=== PATIENT | female | born 1950 | race Caucasian/White ===

== ENCOUNTER 2020-11-29 12:08 | Inpatient (IN) ==
--- NOTE | 2020-11-29 13:40 | RAD ---
HISTORYCOVID INFUSIONSTUDLUIS ENRIQUE DAMON/LAT [id number]/04/2021.TECHNIQUE2 views of the chestFINDINGSCardiac and mediastinal contours are within normal limits. Moderate atherosclerosis at the aortic knob. Moderate bilateral airspace and interstitial opacities with a peripheral distribution in the mid to lower lungs. No discernible pleural effusion or pneumothorax.IMPRESSIONModerate bilateral pulmonary opacities consistent with COVID 19.Electronically signed by: Orlando Ivy (Nov 29, 2020 13:38:13)
[2020-11-29 13:42] VITALS: BMI 34.0
[2020-11-29 13:52] LABS: ABG ALLEN TEST POS; ABG BASE EXCESS -5.1 mmol/L (-2.0-2.0); ABG HCO3 18.6 mmol/L (22-26)
[2020-11-29 13:59] LABS: BASOPHILS # (AUTO) 0.1 X10^3/uL (0.0-0.1); BASOPHILS % (AUTO) 0.5 % (0.2-1.0); EOSINOPHILS # (AUTO) 0.1 x10^3/uL (0.0-0.2); EOSINOPHILS % (AUTO) 0.3 % (0.9-2.9); HEMATOCRIT 34.1 % (36.0-47.0); HEMOGLOBIN 11.2 g/dL (12.0-16.0); LYMPHOCYTES # (AUTO) 1.1 X10^3/uL (1.3-2.9); LYMPHOCYTES % (AUTO) 5.5 % (21.0-51.0); MEAN CORPUSCULAR HEMOGLOBIN 27.6 pg (27.0-34.0); MEAN CORPUSCULAR HGB CONC 32.9 g/dL (33.0-35.0); MEAN CORPUSCULAR VOLUME 83.9 fL (80.0-100.0); MEAN PLATELET VOLUME 7.4 fL (7.4-11.0); MONOCYTES # (AUTO) 1.7 x10^3/uL (0.3-0.8); MONOCYTES % (AUTO) 8.4 % (0.0-13.0); NEUTROPHILS # (AUTO) 17.6 x10^3/uL (2.2-4.8); NEUTROPHILS % (AUTO) 85.3 % (42.0-75.0); PLATELET COUNT 503 X10^3/uL (150.0-450.0); RED BLOOD COUNT 4.07 X10^6/uL (3.5-5.4); RED CELL DISTRIBUTION WIDTH 20.9 % (11.6-16.5); WHITE BLOOD COUNT 20.7 X10^3/uL (3.6-10.0)
[2020-11-29 14:10] LABS: ALBUMIN 2.8 g/dL (3.4-5.0); CALCIUM 8.9 mg/dL (8.5-10.1); CARBON DIOXIDE 22.1 mmol/L (21-32); COR CA(FOR HYPOALB) 9.9 mg/dL (8.5-10.1); CREATININE 1.5 mg/dL (0.55-1.02); TOTAL PROTEIN 8.3 g/dL (6.4-8.2)
[2020-11-29] MEDS ORDERED: NS 250 ML IV 250 ML IV ONE (14:23)
[2020-11-29] MEDS ORDERED: REMDESIVIR IV ONE (14:23)
[2020-11-29] MEDS ORDERED: TYLENOL 325 MG TAB PO ONE (14:49)
[2020-11-29] MEDS ORDERED: REMDESIVIR 200 MG in NS 250 ML IV 250 ML IV ONE (14:49)
[2020-11-29] MEDS ORDERED: SOLU-Medrol 125 MG VIAL IVP ONE (14:49)
[2020-11-29 15:08] LABS: ANISOCYTOSIS 1+; PLATELET MORPHOLOGY COMMENT NORMAL (NORMAL)
[2020-11-29] MEDS ORDERED: ROBITUSSIN DM PO PRN (16:56)
[2020-11-29] MEDS ORDERED: TUSSIONEX PENNKINETIC SUSP PO PRN (16:56)
[2020-11-29] MEDS ORDERED: ACCUNEB 1.25 MG NEBULE NEB SCH (17:00)
[2020-11-29] MEDS ORDERED: PHARMACY CONSULT - IVERMECTIN XX SCH (17:00)
[2020-11-29] MEDS ORDERED: LEVAQUIN PREMIX IV 500 MG 500 MG/100 ML BAG IV SCH (17:00)
[2020-11-29] MEDS: PULMICORT NEB TX 0.5 MG NEB SCH ×2 (17:43→21:00)
[2020-11-29] MEDS ORDERED: NS 1/2 1000 ML IV 1,000 ML IV ONE (18:15)
[2020-11-29] MEDS ORDERED: LEVAQUIN PREMIX IV 750 MG 750 MG/150 ML BAG IV ONE (18:16)
[2020-11-29 18:19] LABS: CKMB % 3.9 % (<4); CREATINE KINASE 26 Units/L (26-192); CREATINE KINASE MB < 1.0 ng/mL (0-4.0); TROPONIN I < 0.02 ng/mL (0-1.5)
[2020-11-29] MEDS: NS 1/2 1000 ML IV 1,000 ML IV SCH ×2 (18:21→18:42)
[2020-11-29] MEDS: LEVAQUIN PREMIX IV 750 MG 750 MG/150 ML BAG IV SCH (18:22)
[2020-11-29] MEDS: VITAMIN D3 125 mcg (5,000 UNITS) PO SCH (18:34)
[2020-11-29] MEDS: DIFLUCAN PO SCH (18:34)
[2020-11-29] MEDS: ZINC SULFATE PO SCH (18:34)
[2020-11-29] MEDS ORDERED: BROVANA ONE (19:37)
[2020-11-29] MEDS ORDERED: AMBIEN PO PRN (20:30)
[2020-11-29] MEDS: FLUVOXAMINE MALEATE PO SCH (20:33)
[2020-11-29] MEDS: SNACK - Diabetic Appropriate PO SCH (20:33)
[2020-11-29] MEDS: MELATONIN PO SCH (20:34)
[2020-11-29] MEDS: ACCUNEB 1.25 MG NEBULE NEB PRN (21:00)
[2020-11-29] MEDS: BROVANA IN SCH (21:00)
[2020-11-29] MEDS: PERIACTIN TAB 4 MG PO SCH (21:35)
[2020-11-29] MEDS: IVERMECTIN PO SCH (21:35)
[2020-11-29] MEDS: SINGULAIR TAB 10 MG PO SCH (21:35)
[2020-11-29] MEDS: PEPCID TAB 40 MG PO SCH (21:35)
[2020-11-29] MEDS: PROTONIX TAB 40 MG PO SCH (21:35)
[2020-11-29] MEDS: LIPITOR TAB 80 MG PO SCH (21:35)
[2020-11-29] MEDS: SOLU-Medrol 40 MG VIAL IVP SCH (21:40)
[2020-11-29] MEDS: LOVENOX INJ 80 MG SYR SC SCH (21:40)
[2020-11-29] MEDS: THIAMINE HCL INJ IVP SCH (21:40)
[2020-11-29] MEDS: TESSALON PERLES PO SCH (21:45)
[2020-11-29] MEDS: FORTAZ or TAZICEF VIAL INJ IV SCH (21:45)
[2020-11-29] MEDS: HumuLIN R SUBCUT PRN (21:56)
[2020-11-29] MEDS: ASCORBIC ACID INJ MULTI-DOSE VIAL 1,500 MG in NS 50 ML IV 50 ML IV SCH (22:35)
[2020-11-30] MEDS: ASCORBIC ACID INJ MULTI-DOSE VIAL 1,500 MG in NS 50 ML IV 50 ML IV SCH ×4 (02:45→20:17)
[2020-11-30 05:00] LABS: ABG ALLEN TEST POS; ABG BASE EXCESS -4.1 mmol/L (-2.0-2.0); ABG HCO3 19.8 mmol/L (22-26)
[2020-11-30] MEDS: PERIACTIN TAB 4 MG PO SCH ×3 (05:34→20:17)
[2020-11-30] MEDS: TESSALON PERLES PO SCH ×3 (05:34→20:17)
[2020-11-30] MEDS: SOLU-Medrol 40 MG VIAL IVP SCH ×3 (05:34→20:23)
[2020-11-30] MEDS: NS 1/2 1000 ML IV 1,000 ML IV SCH ×3 (05:44→19:14)
[2020-11-30 06:24] LABS: BASOPHILS # (AUTO) 0.1 X10^3/uL (0.0-0.1); HEMATOCRIT 29.9 % (36.0-47.0); LYMPHOCYTES # (AUTO) 0.9 X10^3/uL (1.3-2.9); LYMPHOCYTES % (AUTO) 7.5 % (21.0-51.0); MEAN CORPUSCULAR HEMOGLOBIN 29.6 pg (27.0-34.0); MEAN CORPUSCULAR HGB CONC 33.6 g/dL (33.0-35.0); MEAN CORPUSCULAR VOLUME 88.3 fL (80.0-100.0); MEAN PLATELET VOLUME 7.8 fL (7.4-11.0); MONOCYTES # (AUTO) 0.3 x10^3/uL (0.3-0.8); MONOCYTES % (AUTO) 2.5 % (0.0-13.0); NEUTROPHILS # (AUTO) 10.1 x10^3/uL (2.2-4.8); PLATELET COUNT 411 X10^3/uL (150.0-450.0); RED BLOOD COUNT 3.39 X10^6/uL (3.5-5.4); RED CELL DISTRIBUTION WIDTH 20.5 % (11.6-16.5); WHITE BLOOD COUNT 11.4 X10^3/uL (3.6-10.0)
[2020-11-30 06:34] LABS: ALBUMIN 2.4 g/dL (3.4-5.0); CALCIUM 8.6 mg/dL (8.5-10.1); CARBON DIOXIDE 24.4 mmol/L (21-32); COR CA(FOR HYPOALB) 9.9 mg/dL (8.5-10.1); CREATININE 1.35 mg/dL (0.55-1.02); TOTAL PROTEIN 7.3 g/dL (6.4-8.2)
[2020-11-30 07:11] LABS: ANISOCYTOSIS 1+; PLATELET MORPHOLOGY COMMENT NORMAL (NORMAL)
--- NOTE | 2020-11-30 07:25 | RAD ---
HISTORYSOB HX: HTN, DM SX: GBgdSTUDYCHEST, 1 [id number]/06/2021FINDINGSCardiac silhouette is stable in size. Bilateral patchy opacities within the mid and lower peripheral lungs persist and appear essentially unchanged since prior. No significant pleural effusion is identified. No pneumothorax.IMPRESSIONStable bilateral airspace disease, compatible with multifocal pneumonia.Electronically signed by: ERIC FERNANDES (Nov 30, 2020 07:23:56)
[2020-11-30] MEDS: FORTAZ or TAZICEF VIAL INJ IV SCH ×2 (08:45→20:17)
[2020-11-30] MEDS: REMDESIVIR 100 MG in NS 250 ML IV 250 ML IV SCH (08:55)
[2020-11-30] MEDS: LOVENOX INJ 80 MG SYR SC SCH ×2 (08:55→20:17)
[2020-11-30] MEDS: ACCUNEB 1.25 MG NEBULE NEB PRN (09:40)
[2020-11-30] MEDS: PULMICORT NEB TX 0.5 MG NEB SCH (09:40)
[2020-11-30] MEDS: BROVANA IN SCH (09:40)
[2020-11-30] MEDS: VITAMIN D3 125 mcg (5,000 UNITS) PO SCH (10:28)
[2020-11-30] MEDS: FLUVOXAMINE MALEATE PO SCH (10:29)
[2020-11-30] MEDS: DIFLUCAN PO SCH (10:29)
[2020-11-30] MEDS: PROTONIX TAB 40 MG PO SCH ×2 (10:29→20:17)
[2020-11-30] MEDS: ZINC SULFATE PO SCH (10:31)
[2020-11-30] MEDS: PEPCID TAB 40 MG PO SCH (11:28)
[2020-11-30] MEDS: THIAMINE HCL INJ IVP SCH ×2 (11:28→20:20)
--- NOTE | 2020-11-30 12:17 | PCM.PROG ---
Progress Note Progress Note for Day of Date of Exam: 11/30/20 Subjective Subjective: Patient seen at bedside, no events overnight. She states she feels better. She is not on oxygen. She reports mild cough with clear sputum. Denies N/V/D or abdominal pain. She was admitted yesterday for covid infection. Labs: WBC 11.4 Hgb 10 BUN/Cr: 27/1.35 Trop (-) CRp 62 D-dimer 3.45 ABG 7.42/32/72/19 sats 94% on Room air CXR: stable bilateral opacities consistent with multifocal pneumonia. Plan: CTA pending, continue IV hydration with 1/2 NS. Continue Remdesivir, solumedrol, Fortaz, Levaquin and Diflucan. Continue nebs, pulmicort and IS. Monitor resp status. Continue vitamin support and home medications. Monitor AM labs and imaging. Past Medical Family Social History Past Med/Fam/Surg Hx: No changes since H&P Allergies: Allergies No Known Drug Allergies Allergy (Verified 04/29/20 20:19) Review of Systems ROS: No change since H&P Vital Signs and I&O's Vital Signs: Temperature 98.8 F Pulse Rate [Left Radial] 108 Pulse Rate 101 Respiratory Rate 20 Blood Pressure [Right Arm] 140/67 O2 Sat by Pulse Oximetry 96 Intake and Output: Intake & Output 11/27/20 11/28/20 11/29/20 11/30/20 23:59 23:59 23:59 23:59 Intake Total 2280 / 2280 2214 / 2214 Balance 2280 / 2280 2214 / 2214 Physical Exam Oriented: Normal Eyes: Normal Ear: Normal Nose: Normal Throat: Normal Respiratory: Generalized and Diminished Cardiovascular: Normal and Edema Auscultation: Bowel Sounds: Normal Palpation: Normal Tenderness: Normal Skin: Normal Musculoskeletal: Normal Psychiatric: Normal Mood Description: Calm Affect: Normal Speech Pattern: Clear and Appropriate Laboratory and Diagnostics Result Diagrams: 11/30/20 05:40 11/30/20 05:40 Labs: Laboratory WBC 11.4 X10^3/uL (3.6-10.0) H D 11/30/20 05:40 RBC 3.39 X10^6/uL (3.5-5.4) L 11/30/20 05:40 Hgb 10.0 g/dL (12.0-16.0) L 11/30/20 05:40 Hct 29.9 % (36.0-47.0) L 11/30/20 05:40 MCV 88.3 fL (80.0-100.0) 11/30/20 05:40 MCH 29.6 pg (27.0-34.0) 11/30/20 05:40 MCHC 33.6 g/dL (33.0-35.0) 11/30/20 05:40 RDW 20.5 % (11.6-16.5) H 11/30/20 05:40 Plt Count 411 X10^3/uL (150.0-450.0) 11/30/20 05:40 Plt Count Comment Adequate (ADEQUATE) 11/30/20 05:40 MPV 7.8 fL (7.4-11.0) 11/30/20 05:40 Neut % (Auto) 89.0 % (42.0-75.0) H 11/30/20 05:40 Lymph % (Auto) 7.5 % (21.0-51.0) L 11/30/20 05:40 [place] % (Auto) 2.5 % (0.0-13.0) 11/30/20 05:40 Eos % (Auto) 0.0 % (0.9-2.9) L 11/30/20 05:40 Baso % (Auto) 1.0 % (0.2-1.0) 11/30/20 05:40 Neut # (Auto) 10.1 x10^3/uL (2.2-4.8) H 11/30/20 05:40 Lymph # (Auto) 0.9 X10^3/uL (1.3-2.9) L 11/30/20 05:40 [place] # (Auto) 0.3 x10^3/uL (0.3-0.8) 11/30/20 05:40 Eos # (Auto) 0.0 x10^3/uL (0.0-0.2) 11/30/20 05:40 Baso # (Auto) 0.1 X10^3/uL (0.0-0.1) 11/30/20 05:40 Absolute Nucleated RBC 0.0 /100WBC 11/30/20 05:40 Plt Morphology Comment Normal (NORMAL) 11/30/20 05:40 RBC Morphology Abnormal (NORMAL) A 11/30/20 05:40 Anisocytosis 1+ A 11/30/20 05:40 D-Dimer 3.45 ug/ml (0.0-0.57) H* 11/30/20 05:40 Sample Site Lr 11/30/20 04:55 ABG pH 7.400 (7.35-7.45) 11/30/20 04:55 ABG pCO2 32.0 mmHg (35.0-45.0) L 11/30/20 04:55 ABG pO2 72.0 mmHg (80.0-100.0) L 11/30/20 04:55 ABG HCO3 19.8 mmol/L (22-26) L 11/30/20 04:55 ABG O2 Saturation 94.0 % (90-100) 11/30/20 04:55 ABG Base Excess -4.1 mmol/L (-2.0-2.0) L 11/30/20 04:55 Reji Test Pos 11/30/20 04:55 A-a Gradient 38.0 mmHg 11/30/20 04:55 FiO2 21.0 11/30/20 04:55 Blood Gas Comments Dinesh well ae 11/30/20 04:55 Sodium 136 mmol/L (136-145) 11/30/20 05:40 Corrected Sodium 137 mmol/L (136-145) 11/30/20 05:40 Potassium 4.1 mmol/L (3.5-5.1) 11/30/20 05:40 Chloride 102 mmol/L (98-107) 11/30/20 05:40 Carbon Dioxide 24.4 mmol/L (21-32) 11/30/20 05:40 BUN 27 mg/dL (7-18) H 11/30/20 05:40 Creatinine 1.35 mg/dL (0.55-1.02) H 11/30/20 05:40 Est GFR (MDRD) Af Amer 50 (>60) L 11/30/20 05:40 Est GFR (MDRD) Non-Af 41 (>60) L 11/30/20 05:40 Glucose 134 mg/dL (65-99) H 11/30/20 05:40 POC Glucose (mg/dL) 289 mg/dL (65-99) H 11/29/20 21:17 Calcium 8.6 mg/dL (8.5-10.1) 11/30/20 05:40 Corrected Calcium 9.9 mg/dL (8.5-10.1) 11/30/20 05:40 Ferritin 946 ng/mL (8-252) H 11/30/20 05:40 Total Bilirubin 0.40 mg/dL (0.2-1.0) 11/30/20 05:40 AST 16 Units/L (15-37) 11/30/20 05:40 ALT 14 Units/L (12-78) 11/30/20 05:40 Alkaline Phosphatase 124 Units/L (46-116) H 11/30/20 05:40 Creatine Kinase 26 Units/L (26-192) 11/29/20 17:29 CK-MB (CK-2) < 1.0 ng/mL (0-4.0) 11/29/20 17:29 CK/CKMB % Calc 3.9 % (<4) 11/29/20 17:29 Troponin I < 0.02 ng/mL (0-1.5) 11/29/20 17:29 C-Reactive Protein 62.20 mg/L (0-3.0) H 11/30/20 05:40 B-Natriuretic Peptide 45.4 pg/mL (0-79) 11/30/20 05:40 Total Protein 7.3 g/dL (6.4-8.2) 11/30/20 05:40 Albumin 2.4 g/dL (3.4-5.0) L 11/30/20 05:40 Globulin 4.9 g/dL (2.5-4.5) H 11/30/20 05:40 Albumin/Globulin Ratio 0.5 Ratio (1.1-2.1) L 11/30/20 05:40 SARS CoV-2 RNA Rapid LUCA Positive (NEGATIVE) A 11/29/20 12:46 Plan (1) Pneumonia due to COVID-19 virus: Status: Acute (2) Elevated d-dimer: Status: Acute (3) Hypoxia: Status: Acute (4) JANIE (acute kidney injury): Status: Acute (5) HTN (hypertension): Status: Acute Qualifiers: Hypertension type: primary hypertension Qualified Code(s): I10 - Essential (primary) hypertension
[2020-11-30] MEDS: NORCO 7.5/325 MG TAB PO SCH ×2 (13:05→20:17)
[2020-11-30] MEDS ORDERED: NS 100 ML IV 100 ML ONE (13:36)
[2020-11-30] MEDS ORDERED: NS 1/2 1000 ML IV 1,000 ML IV ONE (15:24)
--- NOTE | 2020-11-30 15:27 | CT ---
HISTORYCOVID PNEUMONIA; SOBSTUDYCTA CHESTCOMPARISONChest radiograph 11/30/2020TECHNIQUEMultiple axial images of the chest were obtained from the thoracic inlet to the upper abdomen after the administration of IV contrast. 3D reconstructions utilizing axial MIPS imaging was performed and reviewed. Dose reduction techniques including Automated Exposure Control (AEC) and adjustment of mA and kV were utilized.FINDINGSThe mediastinum does not demonstrate significant pathological lymphadenopathy. There is no paracardial effusion observed. The thoracic aorta is normal in its contour without evidence for aneurysmal dilatation. The central pulmonary arterial system does not demonstrate central filling defects to suggest pulmonary emboli.Evaluation of the lung parenchyma demonstrates multifocal bilateral parenchymal opacities primarily peripheral in distribution. No pleural effusion or pneumothorax. Is. No pulmonary nodule or mass can be identified. The bony thorax is unremarkable in its appearance . The visualized portions of the upper abdomen are grossly unremarkable .IMPRESSIONUnremarkable CTA of the thoracic aorta and pulmonary arteries. IsMultifocal bilateral parenchymal opacities primarily peripheral in distribution. Findings consistent with multifocal pneumonia.The above findings demonstrate COMMON CT imaging features of COVID-19 pneumonia. However, differential diagnosis should include, but is not limited to, influenza pneumonia, organizing pneumonia, or possible drug toxicity. Clinical correlation with laboratory viral testing may be obtained as clinically indicated. Reference: Hakeem et al. Radiology. 2020Electronically signed by: Keith Pillai (Nov 30, 2020 15:25:26)
[2020-11-30] MEDS: BENTYL CAP 10 MG PO SCH ×2 (17:03→20:17)
[2020-11-30] MEDS: AMBIEN PO PRN (20:17)
[2020-11-30] MEDS: SINGULAIR TAB 10 MG PO SCH (20:17)
[2020-11-30] MEDS: OLMESARTAN 5 MG PO SCH (20:17)
[2020-11-30] MEDS: LIPITOR TAB 80 MG PO SCH (20:17)
[2020-11-30] MEDS: SNACK - Diabetic Appropriate PO SCH (22:57)
[2020-11-30] MEDS: MELATONIN PO SCH (22:59)
[2020-12-01] MEDS: BROVANA IN SCH ×3 (00:38→22:55)
[2020-12-01] MEDS: PULMICORT NEB TX 0.5 MG NEB SCH ×3 (00:38→22:53)
[2020-12-01] MEDS: ASCORBIC ACID INJ MULTI-DOSE VIAL 1,500 MG in NS 50 ML IV 50 ML IV SCH ×3 (02:24→14:20)
[2020-12-01 05:26] LABS: BASOPHILS # (AUTO) 0.3 X10^3/uL (0.0-0.1); BASOPHILS % (AUTO) 1.4 % (0.2-1.0); HEMATOCRIT 27.7 % (36.0-47.0); HEMOGLOBIN 9.3 g/dL (12.0-16.0); LYMPHOCYTES # (AUTO) 0.7 X10^3/uL (1.3-2.9); LYMPHOCYTES % (AUTO) 3.1 % (21.0-51.0); MEAN CORPUSCULAR HEMOGLOBIN 28.7 pg (27.0-34.0); MEAN CORPUSCULAR HGB CONC 33.5 g/dL (33.0-35.0); MEAN CORPUSCULAR VOLUME 85.6 fL (80.0-100.0); MEAN PLATELET VOLUME 7.2 fL (7.4-11.0); MONOCYTES # (AUTO) 1.1 x10^3/uL (0.3-0.8); MONOCYTES % (AUTO) 4.4 % (0.0-13.0); NEUTROPHILS # (AUTO) 22.2 x10^3/uL (2.2-4.8); NEUTROPHILS % (AUTO) 91.1 % (42.0-75.0); PLATELET COUNT 397 X10^3/uL (150.0-450.0); RED BLOOD COUNT 3.23 X10^6/uL (3.5-5.4); RED CELL DISTRIBUTION WIDTH 21.4 % (11.6-16.5); WHITE BLOOD COUNT 24.3 X10^3/uL (3.6-10.0)
[2020-12-01] MEDS: PERIACTIN TAB 4 MG PO SCH ×3 (05:40→22:54)
[2020-12-01] MEDS: SOLU-Medrol 40 MG VIAL IVP SCH ×2 (05:40→14:13)
[2020-12-01 05:43] LABS: ALBUMIN 2.4 g/dL (3.4-5.0); CALCIUM 8.3 mg/dL (8.5-10.1); CARBON DIOXIDE 23.1 mmol/L (21-32); COR CA(FOR HYPOALB) 9.6 mg/dL (8.5-10.1); CREATININE 1.51 mg/dL (0.55-1.02); TOTAL PROTEIN 6.8 g/dL (6.4-8.2)
[2020-12-01] MEDS: BENTYL CAP 10 MG PO SCH ×4 (05:50→22:53)
[2020-12-01] MEDS: TESSALON PERLES PO SCH ×3 (05:50→22:53)
[2020-12-01 05:52] LABS: ABG ALLEN TEST POS; ABG BASE EXCESS -5.2 mmol/L (-2.0-2.0); ABG HCO3 18.8 mmol/L (22-26)
--- NOTE | 2020-12-01 05:55 | RAD ---
HISTORYCOVID PNEUMONIA HX: HTN SX: GBSTUDYCHEST, 1 [id number]/07/2021FINDINGSCardiac silhouette is stable in size. Previously seen bilateral airspace disease appears essentially unchanged since prior. There is no significant pleural effusion or pneumothorax.IMPRESSIONStable bilateral airspace disease.Electronically signed by: ERIC FERNANDES (Dec 01, 2020 05:53:31)
[2020-12-01 06:31] LABS: ANISOCYTOSIS 1+; PLATELET MORPHOLOGY COMMENT NORMAL (NORMAL)
[2020-12-01] MEDS: LOVENOX INJ 80 MG SYR SC SCH (09:01)
[2020-12-01] MEDS: GLUCOTROL XL 24-HR PO SCH (09:02)
[2020-12-01] MEDS: PROTONIX TAB 40 MG PO SCH ×2 (09:03→22:00)
[2020-12-01] MEDS: VITAMIN D3 125 mcg (5,000 UNITS) PO SCH (09:04)
[2020-12-01] MEDS: NORCO 7.5/325 MG TAB PO SCH ×2 (09:04→22:00)
[2020-12-01] MEDS: PEPCID TAB 40 MG PO SCH (09:05)
[2020-12-01] MEDS: FORTAZ or TAZICEF VIAL INJ IV SCH (09:06)
[2020-12-01] MEDS: ZINC SULFATE PO SCH (09:06)
[2020-12-01] MEDS: ZYLOPRIM PO SCH (09:06)
[2020-12-01] MEDS: DIFLUCAN PO SCH (09:11)
[2020-12-01] MEDS: THIAMINE HCL INJ IVP SCH (09:11)
[2020-12-01] MEDS: NS 1/2 1000 ML IV 1,000 ML IV SCH (09:12)
[2020-12-01] MEDS: ACCUNEB 1.25 MG NEBULE NEB PRN (09:40)
[2020-12-01] MEDS: REMDESIVIR 100 MG in NS 250 ML IV 250 ML IV SCH (10:00)
[2020-12-01] MEDS ORDERED: NS 1/2 1000 ML IV 1,000 ML IV ONE ×2 (10:40→11:11)
[2020-12-01] MEDS: HumuLIN R SUBCUT PRN ×2 (12:02→16:57)
--- NOTE | 2020-12-01 12:21 | PCM.PROG ---
Progress Note Progress Note for Day of Date of Exam: 12/01/20 Subjective Subjective: Patient seen at bedside, no events overnight. She states she feels better. She is not on oxygen. She reports mild cough. Denies N/V/D or abdominal pain. She has been eating well. Labs: WBC 24.3 Hgb 9.3 BUN/Cr: 30/1.51 Trop (-) CRP 36 D-dimer 4.05 ABG 7.42/32/72/19 sats 94% on Room air - CTA: no PE, bilateral multifocal pneumonia CXR: stable bilateral opacities consistent with multifocal pneumonia. Plan:Continue IV hydration with 1/2 NS. Continue Remdesivir, solumedrol, Fortaz, Levaquin and Diflucan. Continue nebs, pulmicort and IS. Monitor resp status. Continue vitamin support and home medications. Echo pending for tomorrow. Will decrease lovenox dose to prophylaxis, 30 mg BID. Monitor AM labs and imaging. Past Medical Family Social History Past Med/Fam/Surg Hx: No changes since H&P Allergies: Allergies No Known Drug Allergies Allergy (Verified 04/29/20 20:19) Review of Systems ROS: No change since H&P Vital Signs and I&O's Vital Signs: Temperature 98.2 F Pulse Rate [Left Radial] 92 Pulse Rate 108 Respiratory Rate 20 Blood Pressure [Right Arm] 142/74 O2 Sat by Pulse Oximetry 95 Intake and Output: Intake & Output 11/28/20 11/29/20 11/30/20 12/01/20 23:59 23:59 23:59 23:59 Intake Total 2280 / 2280 6009 / 6009 380 / 380 Balance 2280 / 2280 6009 / 6009 380 / 380 Physical Exam Oriented: Normal Eyes: Normal Ear: Normal Nose: Normal Throat: Normal Respiratory: Generalized and Diminished Cardiovascular: Normal and Edema Auscultation: Bowel Sounds: Normal Tenderness: Normal Skin: Normal Musculoskeletal: Normal Psychiatric: Normal Mood Description: Calm Affect: Normal Speech Pattern: Clear Laboratory and Diagnostics Result Diagrams: 12/01/20 05:05 12/01/20 05:05 Labs: 11/29/20 17:34 Blood Blood Culture - Preliminary 11/29/20 17:29 Blood Blood Culture - Preliminary Laboratory WBC 24.3 X10^3/uL (3.6-10.0) H D 12/01/20 05:05 RBC 3.23 X10^6/uL (3.5-5.4) L 12/01/20 05:05 Hgb 9.3 g/dL (12.0-16.0) L 12/01/20 05:05 Hct 27.7 % (36.0-47.0) L 12/01/20 05:05 MCV 85.6 fL (80.0-100.0) 12/01/20 05:05 MCH 28.7 pg (27.0-34.0) 12/01/20 05:05 MCHC 33.5 g/dL (33.0-35.0) 12/01/20 05:05 RDW 21.4 % (11.6-16.5) H 12/01/20 05:05 Plt Count 397 X10^3/uL (150.0-450.0) 12/01/20 05:05 Plt Count Comment Adequate (ADEQUATE) 12/01/20 05:05 MPV 7.2 fL (7.4-11.0) L 12/01/20 05:05 Neut % (Auto) 91.1 % (42.0-75.0) H 12/01/20 05:05 Lymph % (Auto) 3.1 % (21.0-51.0) L 12/01/20 05:05 [place] % (Auto) 4.4 % (0.0-13.0) 12/01/20 05:05 Eos % (Auto) 0.0 % (0.9-2.9) L 12/01/20 05:05 Baso % (Auto) 1.4 % (0.2-1.0) H 12/01/20 05:05 Neut # (Auto) 22.2 x10^3/uL (2.2-4.8) H 12/01/20 05:05 Lymph # (Auto) 0.7 X10^3/uL (1.3-2.9) L 12/01/20 05:05 [place] # (Auto) 1.1 x10^3/uL (0.3-0.8) H 12/01/20 05:05 Eos # (Auto) 0.0 x10^3/uL (0.0-0.2) 12/01/20 05:05 Baso # (Auto) 0.3 X10^3/uL (0.0-0.1) H 12/01/20 05:05 Absolute Nucleated RBC 0.1 /100WBC 12/01/20 05:05 Total Counted 100 12/01/20 05:05 Neutrophils % (Manual) 97 % (39-76) H 12/01/20 05:05 Lymphocytes % (Manual) 2 % (13-43) L 12/01/20 05:05 Monocytes % (Manual) 1 % (4-9) L 12/01/20 05:05 Plt Morphology Comment Normal (NORMAL) 12/01/20 05:05 RBC Morphology Abnormal (NORMAL) A 12/01/20 05:05 Anisocytosis 1+ A 12/01/20 05:05 D-Dimer 4.05 ug/ml (0.0-0.57) H* 12/01/20 05:05 Sample Site Lr 12/01/20 05:00 ABG pH 7.390 (7.35-7.45) 12/01/20 05:00 ABG pCO2 31.0 mmHg (35.0-45.0) L 12/01/20 05:00 ABG pO2 70.0 mmHg (80.0-100.0) L 12/01/20 05:00 ABG HCO3 18.8 mmol/L (22-26) L 12/01/20 05:00 ABG O2 Saturation 94.0 % (90-100) 12/01/20 05:00 ABG Base Excess -5.2 mmol/L (-2.0-2.0) L 12/01/20 05:00 Reji Test Pos 12/01/20 05:00 A-a Gradient 41.0 mmHg 12/01/20 05:00 FiO2 21.0 12/01/20 05:00 Blood Gas Comments Dinesh well sw 12/01/20 05:00 Sodium 142 mmol/L (136-145) 12/01/20 05:05 Corrected Sodium 143 mmol/L (136-145) 12/01/20 05:05 Potassium 3.6 mmol/L (3.5-5.1) 12/01/20 05:05 Chloride 107 mmol/L (98-107) 12/01/20 05:05 Carbon Dioxide 23.1 mmol/L (21-32) 12/01/20 05:05 BUN 30 mg/dL (7-18) H 12/01/20 05:05 Creatinine 1.51 mg/dL (0.55-1.02) H 12/01/20 05:05 Est GFR (MDRD) Af Amer 44 (>60) L 12/01/20 05:05 Est GFR (MDRD) Non-Af 36 (>60) L 12/01/20 05:05 Glucose 158 mg/dL (65-99) H 12/01/20 05:05 POC Glucose (mg/dL) 196 mg/dL (65-99) H 12/01/20 11:48 Calcium 8.3 mg/dL (8.5-10.1) L 12/01/20 05:05 Corrected Calcium 9.6 mg/dL (8.5-10.1) 12/01/20 05:05 Ferritin 1254 ng/mL (8-252) H 12/01/20 05:05 Total Bilirubin 0.20 mg/dL (0.2-1.0) 12/01/20 05:05 AST 17 Units/L (15-37) 12/01/20 05:05 ALT 14 Units/L (12-78) 12/01/20 05:05 Alkaline Phosphatase 103 Units/L (46-116) 12/01/20 05:05 Creatine Kinase 26 Units/L (26-192) 11/29/20 17:29 CK-MB (CK-2) < 1.0 ng/mL (0-4.0) 11/29/20 17:29 CK/CKMB % Calc 3.9 % (<4) 11/29/20 17:29 Troponin I < 0.02 ng/mL (0-1.5) 11/29/20 17:29 C-Reactive Protein 36.40 mg/L (0-3.0) H 12/01/20 05:05 B-Natriuretic Peptide 40.7 pg/mL (0-79) 12/01/20 05:05 Total Protein 6.8 g/dL (6.4-8.2) 12/01/20 05:05 Albumin 2.4 g/dL (3.4-5.0) L 12/01/20 05:05 Globulin 4.4 g/dL (2.5-4.5) 12/01/20 05:05 Albumin/Globulin Ratio 0.5 Ratio (1.1-2.1) L 12/01/20 05:05 SARS CoV-2 RNA Rapid LUCA Positive (NEGATIVE) A 11/29/20 12:46 Plan (1) Pneumonia due to COVID-19 virus: Status: Acute (2) Elevated d-dimer: Status: Acute (3) Hypoxia: Status: Acute (4) JANIE (acute kidney injury): Status: Acute (5) HTN (hypertension): Status: Acute Qualifiers: Hypertension type: primary hypertension Qualified Code(s): I10 - Essential (primary) hypertension
[2020-12-01] MEDS: LEVAQUIN PREMIX IV 750 MG 750 MG/150 ML BAG IV SCH (17:45)
[2020-12-01] MEDS: SNACK - Diabetic Appropriate PO SCH (20:30)
[2020-12-01] MEDS: SINGULAIR TAB 10 MG PO SCH (21:00)
[2020-12-01] MEDS ORDERED: NS 50 ML IV + SPIKE MINIBAG* 50 ML IV ONE (21:15)
[2020-12-01] MEDS: LIPITOR TAB 80 MG PO SCH (22:00)
[2020-12-01] MEDS: OLMESARTAN 5 MG PO SCH (22:00)
[2020-12-01] MEDS: LOVENOX INJ 30 MG SYR SC SCH (22:00)
[2020-12-01] MEDS: MELATONIN PO SCH (22:58)
[2020-12-01] MEDS: AMBIEN PO PRN (22:59)
[2020-12-02] MEDS: SOLU-Medrol 40 MG VIAL IVP SCH ×2 (00:02→05:24)
[2020-12-02] MEDS: ASCORBIC ACID INJ MULTI-DOSE VIAL 1,500 MG in NS 50 ML IV 50 ML IV SCH ×5 (00:02→20:30)
[2020-12-02] MEDS: NS 1/2 1000 ML IV 1,000 ML IV SCH ×3 (00:04→23:53)
[2020-12-02] MEDS: TESSALON PERLES PO SCH ×3 (05:23→21:05)
[2020-12-02] MEDS: PERIACTIN TAB 4 MG PO SCH ×3 (05:23→21:04)
[2020-12-02] MEDS: HumuLIN R SUBCUT PRN ×2 (05:40→12:01)
[2020-12-02 06:22] LABS: BASOPHILS # (AUTO) 0.1 X10^3/uL (0.0-0.1); BASOPHILS % (AUTO) 0.2 % (0.2-1.0); EOSINOPHILS % (AUTO) 0.1 % (0.9-2.9); HEMATOCRIT 27.9 % (36.0-47.0); HEMOGLOBIN 9.4 g/dL (12.0-16.0); LYMPHOCYTES # (AUTO) 0.6 X10^3/uL (1.3-2.9); LYMPHOCYTES % (AUTO) 2.1 % (21.0-51.0); MEAN CORPUSCULAR HEMOGLOBIN 29.3 pg (27.0-34.0); MEAN CORPUSCULAR HGB CONC 33.5 g/dL (33.0-35.0); MEAN CORPUSCULAR VOLUME 87.3 fL (80.0-100.0); MEAN PLATELET VOLUME 7.6 fL (7.4-11.0); MONOCYTES # (AUTO) 1.5 x10^3/uL (0.3-0.8); MONOCYTES % (AUTO) 4.8 % (0.0-13.0); NEUTROPHILS # (AUTO) 28.8 x10^3/uL (2.2-4.8); NEUTROPHILS % (AUTO) 92.8 % (42.0-75.0); PLATELET COUNT 506 X10^3/uL (150.0-450.0); RED CELL DISTRIBUTION WIDTH 21.3 % (11.6-16.5)
--- NOTE | 2020-12-02 06:29 | RAD ---
HISTORYShortness of breathSTUDYChest AP [id number]/08/2021 chest x-ray, CTA chest 11/30/2020FINDINGSThe heart is enlarged. No congestive heart failure is noted. Subtle peripheral ground-glass infiltrates are present on the right and in the left upper lobe unchanged. No pleural effusions or pneumothoraces are identified. Bony thorax is unremarkable.IMPRESSIONNo change bilateral peripheral ground-glass infiltrates as described aboveNo change mild cardiomegaly without congestive heart failureElectronically signed by: GLORIA GUERRERO (Dec 02, 2020 06:27:37)
[2020-12-02 06:55] LABS: ALBUMIN 2.5 g/dL (3.4-5.0); CALCIUM 8.4 mg/dL (8.5-10.1); CARBON DIOXIDE 20.1 mmol/L (21-32); COR CA(FOR HYPOALB) 9.6 mg/dL (8.5-10.1); CREATININE 1.54 mg/dL (0.55-1.02); TOTAL PROTEIN 6.9 g/dL (6.4-8.2)
[2020-12-02 07:23] LABS: ANISOCYTOSIS 2+; BAND NEUTROPHILS % 2 % (0-10); PLATELET MORPHOLOGY COMMENT NORMAL (NORMAL)
[2020-12-02] MEDS: BROVANA IN SCH ×2 (09:30→21:10)
[2020-12-02] MEDS: PULMICORT NEB TX 0.5 MG NEB SCH ×2 (09:30→21:15)
[2020-12-02] MEDS: ZYLOPRIM PO SCH (09:59)
[2020-12-02] MEDS: ZINC SULFATE PO SCH (09:59)
[2020-12-02] MEDS: THIAMINE HCL INJ IVP SCH ×3 (10:00→20:28)
[2020-12-02] MEDS: VITAMIN D3 125 mcg (5,000 UNITS) PO SCH (10:00)
[2020-12-02] MEDS: PEPCID TAB 40 MG PO SCH (10:00)
[2020-12-02] MEDS: PROTONIX TAB 40 MG PO SCH ×2 (10:00→20:28)
[2020-12-02] MEDS: DIFLUCAN PO SCH (10:01)
[2020-12-02] MEDS: NORCO 7.5/325 MG TAB PO SCH ×2 (10:01→20:31)
[2020-12-02] MEDS: GLUCOTROL XL 24-HR PO SCH (10:02)
[2020-12-02] MEDS: LOVENOX INJ 30 MG SYR SC SCH ×2 (10:02→20:30)
[2020-12-02] MEDS: FORTAZ or TAZICEF VIAL INJ IV SCH ×3 (10:45→20:30)
[2020-12-02] MEDS ORDERED: NS 100 ML IV + SPIKE MINIBAG* 100 ML IV ONE ×2 (10:51→20:44)
[2020-12-02] MEDS: REMDESIVIR 100 MG in NS 250 ML IV 250 ML IV SCH (11:20)
[2020-12-02] MEDS: BENTYL CAP 10 MG PO SCH ×4 (12:00→23:44)
[2020-12-02] MEDS ORDERED: MAALOX or MYLANTA PO PRN (12:01)
--- NOTE | 2020-12-02 12:31 | DR.UPDATE ---
H&P Update History and Physical Update: History and Physical reviewed and patient examined. Changes noted: Yes with the following: TIME SPENT ON CLINICAL ASSESSMENT, REVIEWING LABS AND IMAGING, DECISION MAKING, AND DOCUMENTATION GREATER THAN 75 MINUTES. PRESENTED TO THE HOSPITAL A DIRECT ADMISSION FOR COVID PNEUMONIA AND LEUKOCYTOSIS. SHE HAS HAD NAUSEA, VOMITING, DIARRHEA, AND SHORTNESS OF BREATH THAT HAS PROGRESSIVELY GOTTEN WORSE. ON ARRIVAL TO THE HOSPITAL, VITALS WERE 96.2-125-20-95%-117/71. LABS WERE OBTAINED. ABNORMAL LAB VALUES INCLUDE THE FOLLOWING: WBC 20.7, HGB 11.2, HCT 34.1, PLT COUNT 503, D-DIMER 3.17, POTASSIUM 3.4, BUN 23, CREATININE 1.50, GLUCOSE 130, FERRITIN 1275, ALK PHOS 138, CRP 63 .90, TOTAL PROTEIN 8.3, ALBUMIN 2.5, GLOBULIN 5.5. ABG REVEALED: PH 7.400, PC02 30, P02 82, HC03 18.6, 02 SAT 96, BASE EXCESS -5.1, A-A GRADIENT 30, FI02 21.0. COVID-19 POSITIVE. BLOOD CULTURES WERE SET UP. CHEST XRAY OBTAINED AND REVEALED: Moderate bilateral pulmonary opacities consistent with COVID 19. EKG REVEALEE: SINUS TACHYCARDIA WITH HR 100. SHE WAS STARTED ON 1/2NS AT 75 ML/HR, LEVAQUIN 75 0MG IV Q48H, SOLU-MEDROL 40MG IV Q8H, PROTONIX 40MG PO BID, PEPCID 40MG PO DAILY, THIAMINE 200MG IV BID, ZINC 220MG PO DAILY, SINGULAIR 10MG PO HS, OTBS ACHS, HUMULIN R SLIDING SCALE, MELATONIN 10MG PO HS, IVERMECTIN 15MG PO Q3D, ROBITUSSIN DM 10ML PO QID PRN, DIFLUCAN 100MG PO DAILY, LOVENOX 30MG SC BID, PERIACTIN 8MG PO TID, TUSSIONEX 5ML PO QID, FORTAZ 1G IV Q12H, PULMICORT NEBS BID, ALBUTEROL NEBS QID, BROVANA INHALER BID, TESSALON PERLES 200MG PO TID, LIPITOR 80MG PH HS, ASCORBIC ACID 1500MG IV Q6H. WE PLAN TO OBTAIN AN ECHO AND CHEST CTA TO RULE OUT PE. OTHERWISE, WE WILL FOLLOW UP WITH AM LABS, CHEST XRAY, AND CONTINUE TO MONITOR. TIME SPENT ON CLINICAL ASSESSMENT, REVIEWING LABS AND IMAGING, DECISION MAKING, AND DOCUMENTATION GREATER THAN 75 MINUTES. H&P Reviewed: Yes Patient was examined?: Yes
--- NOTE | 2020-12-02 13:21 | PCM.PROG ---
Progress Note - Progress Note for Day of Date of Exam: 12/02/20 - Subjective Subjective: WAS ADMITTED FOR TREATMENT OF PNEUMONIA DUE TO COVID-19, LEUKOCYTOSIS, ELEVATED D-DIMER, JANIE, HTN. TODAY, SHE IS ALERT AND OREINTED, SITTING UP IN BED ON MORNING ROUNDS. SHE REPORTS MILD COUGH AND SHORTNESS OF BREATH TODAY. SHE DENIES N/V/D OR ABDOMINAL PAIN. SHE HAS BEEN ON ROOM AIR. OXYGEN SATURATIONS HAVE REMAINED 92-97%. ON EXAMINATION, HEART IS REGULAR IN RATE AND RHYTHM. BILATERAL LUNGS NOTED WITH DIMINISHED LUNG SOUNDS THROUGHOUT. ABDOMEN IS ROUND, SOFT, AND NON-TENDER WITH NORMAL BOWEL SOUNDS NOTED IN ALL QUADRANTS. HER VITALS THIS MORNING ARE: 98.0-93-20-94%-110/73. LABS WERE OBTAINED. ABNORMAL LAB VALUES INCLUDE THE FOLLOWING: WBC INCREASED TO 31.0, RBC 3.20, HGB 9.4, HCT 27.9, PLT COUNT 506, D-DIMER 3.73, POTASSIUM 3.4, CHLORIDE 109, CARBON DIOXIDE 20.1, BUN 28, CREATININE 1.54, GLUCOSE 173, CALCIUM 8.4, FERRITIN 1273, CRP 34.80, ALBUMIN 2.5. BLOOD CULTURES PENDING. CHEST XRAY REVEALED: No change bilateral peripheral ground-glass infiltrates. No change mild cardiomegaly without congestive heart failure. A CHEST CTA WAS OBTAINED OVER THE WEEKEND AND NO PULMONARY EMBOLI WERE FOUND. SHE IS CURRENTLY RECEIVING 1/2NS AT 75 ML/HR, REMDESIVIR 100MG IV DAILY, LEVAQUIN 750MG IV Q48H, SOLU- MEDROL 40MG IV Q8H, PROTONIX 40MG PO BID, PEPCID 40MG PO DAILY, THIAMINE 200MG IV BID, ZINC 220MG PO DAILY, SINGULAIR 10MG PO HS, OTBS ACHS, HUMULIN R SLIDING SCALE, MELATONIN 10MG PO HS, IVERMECTIN 15MG PO Q3D, ROBITUSSIN DM 10ML PO QID PRN, DIFLUCAN 100MG PO DAILY, LOVENOX 30MG SC BID, PERIACTIN 8MG PO TID, TUSSIONEX 5ML PO QID, FORTAZ 1G IV Q12H, PULMICORT NEBS BID, ALBUTEROL NEBS QID, BROVANA INHALER BID, TESSALON PERLES 200MG PO TID, LIPITOR 80MG PH HS, ASCORBIC ACID 1500MG IV Q6H, ALLOPURINOL 300MG PO DAILY, DICYCLOMINE 20MG PO ACHS, GLIPIZIDE 2.5MG PO DAILY, NORCO 7.5/325MG PO BID, AND AMBIEN 10MG PO HS PRN. WE WILL CONTINUE WITH CURRENT PLAN OF CARE TODAY. OTHERWISE, WE PLAN TO FOLLOW UP WITH AM LABS AND CHEST XRAY AND CONTINUE TO MONITOR. TIME SPENT ON CLINICAL ASSESSMENT, REVIEWING LABS AND IMAGING, DECISION MAKING, AND DOCUMENTATION GREATER THAN 45 MINUTES. - Past Medical Family Social History Past Med/Fam/Surg Hx: No changes since H&P Allergies: Allergies No Known Drug Allergies Allergy (Verified 04/29/20 20:19) - Review of Systems ROS: No change since H&P - Vital Signs and I&O's Vital Signs: Temperature 97.9 F Pulse Rate [Left Radial] 112 Pulse Rate 93 Respiratory Rate 22 Blood Pressure [Left Arm] 151/87 Blood Pressure [Right Arm] 114/58 O2 Sat by Pulse Oximetry 95 Intake and Output: Intake & Output 11/30/20 12/01/20 12/02/20 12/03/20 11:59 11:59 11:59 11:59 Intake Total 4494 / 4494 4175 / 4175 2093 Balance 4494 / 4494 4175 / 4175 2093 - Physical Exam Oriented: Normal Eyes: Normal Ear: Normal Nose: Normal Throat: Normal Respiratory: Generalized, Diminished Cardiovascular: Normal Auscultation: Bowel Sounds: Normal Palpation: Normal Tenderness: Normal Skin: Normal Musculoskeletal: Normal Psychiatric: Normal Mood Description: Calm Affect: Normal Speech Pattern: Clear - Laboratory and Diagnostics Result Diagrams: 12/02/20 05:47 12/02/20 05:47 Labs: 11/29/20 17:34 Blood Blood Culture - Preliminary 11/29/20 17:29 Blood Blood Culture - Preliminary Laboratory WBC 31.0 X10^3/uL (3.6-10.0) H* 12/02/20 05:47 RBC 3.20 X10^6/uL (3.5-5.4) L 12/02/20 05:47 Hgb 9.4 g/dL (12.0-16.0) L 12/02/20 05:47 Hct 27.9 % (36.0-47.0) L 12/02/20 05:47 MCV 87.3 fL (80.0-100.0) 12/02/20 05:47 MCH 29.3 pg (27.0-34.0) 12/02/20 05:47 MCHC 33.5 g/dL (33.0-35.0) 12/02/20 05:47 RDW 21.3 % (11.6-16.5) H 12/02/20 05:47 Plt Count 506 X10^3/uL (150.0-450.0) H 12/02/20 05:47 Plt Count Comment Increased (ADEQUATE) A 12/02/20 05:47 MPV 7.6 fL (7.4-11.0) 12/02/20 05:47 Neut % (Auto) 92.8 % (42.0-75.0) H 12/02/20 05:47 Lymph % (Auto) 2.1 % (21.0-51.0) L 12/02/20 05:47 [place] % (Auto) 4.8 % (0.0-13.0) 12/02/20 05:47 Eos % (Auto) 0.1 % (0.9-2.9) L 12/02/20 05:47 Baso % (Auto) 0.2 % (0.2-1.0) 12/02/20 05:47 Neut # (Auto) 28.8 x10^3/uL (2.2-4.8) H 12/02/20 05:47 Lymph # (Auto) 0.6 X10^3/uL (1.3-2.9) L 12/02/20 05:47 [place] # (Auto) 1.5 x10^3/uL (0.3-0.8) H 12/02/20 05:47 Eos # (Auto) 0.0 x10^3/uL (0.0-0.2) 12/02/20 05:47 Baso # (Auto) 0.1 X10^3/uL (0.0-0.1) 12/02/20 05:47 Absolute Nucleated RBC 0.0 /100WBC 12/02/20 05:47 Total Counted 100 12/02/20 05:47 Neutrophils % (Manual) 94 % (39-76) H 12/02/20 05:47 Band Neutrophils % 2 % (0-10) 12/02/20 05:47 Lymphocytes % (Manual) 1 % (13-43) L 12/02/20 05:47 Monocytes % (Manual) 3 % (4-9) L 12/02/20 05:47 Plt Morphology Comment Normal (NORMAL) 12/02/20 05:47 RBC Morphology Abnormal (NORMAL) A 12/02/20 05:47 Anisocytosis 2+ A 12/02/20 05:47 D-Dimer 3.73 ug/ml (0.0-0.57) H* 12/02/20 05:47 Sample Site Lr 12/01/20 05:00 ABG pH 7.390 (7.35-7.45) 12/01/20 05:00 ABG pCO2 31.0 mmHg (35.0-45.0) L 12/01/20 05:00 ABG pO2 70.0 mmHg (80.0-100.0) L 12/01/20 05:00 ABG HCO3 18.8 mmol/L (22-26) L 12/01/20 05:00 ABG O2 Saturation 94.0 % (90-100) 12/01/20 05:00 ABG Base Excess -5.2 mmol/L (-2.0-2.0) L 12/01/20 05:00 Reji Test Pos 12/01/20 05:00 A-a Gradient 41.0 mmHg 12/01/20 05:00 FiO2 21.0 12/01/20 05:00 Blood Gas Comments Dinesh well sw 12/01/20 05:00 Sodium 143 mmol/L (136-145) 12/02/20 05:47 Corrected Sodium 145 mmol/L (136-145) 12/02/20 05:47 Potassium 3.4 mmol/L (3.5-5.1) L 12/02/20 05:47 Chloride 109 mmol/L (98-107) H 12/02/20 05:47 Carbon Dioxide 20.1 mmol/L (21-32) L 12/02/20 05:47 BUN 28 mg/dL (7-18) H 12/02/20 05:47 Creatinine 1.54 mg/dL (0.55-1.02) H 12/02/20 05:47 Est GFR (MDRD) Af Amer 43 (>60) L 12/02/20 05:47 Est GFR (MDRD) Non-Af 36 (>60) L 12/02/20 05:47 Glucose 173 mg/dL (65-99) H 12/02/20 05:47 POC Glucose (mg/dL) 175 mg/dL (65-99) H 12/02/20 11:58 Calcium 8.4 mg/dL (8.5-10.1) L 12/02/20 05:47 Corrected Calcium 9.6 mg/dL (8.5-10.1) 12/02/20 05:47 Ferritin 1273 ng/mL (8-252) H 12/02/20 05:47 Total Bilirubin 0.30 mg/dL (0.2-1.0) 12/02/20 05:47 AST 18 Units/L (15-37) 12/02/20 05:47 ALT 15 Units/L (12-78) 12/02/20 05:47 Alkaline Phosphatase 103 Units/L (46-116) 12/02/20 05:47 Creatine Kinase 26 Units/L (26-192) 11/29/20 17:29 CK-MB (CK-2) < 1.0 ng/mL (0-4.0) 11/29/20 17:29 CK/CKMB % Calc 3.9 % (<4) 11/29/20 17:29 Troponin I < 0.02 ng/mL (0-1.5) 11/29/20 17:29 C-Reactive Protein 34.80 mg/L (0-3.0) H 12/02/20 05:47 B-Natriuretic Peptide 35.4 pg/mL (0-79) 12/02/20 05:47 Total Protein 6.9 g/dL (6.4-8.2) 12/02/20 05:47 Albumin 2.5 g/dL (3.4-5.0) L 12/02/20 05:47 Globulin 4.4 g/dL (2.5-4.5) 12/02/20 05:47 Albumin/Globulin Ratio 0.6 Ratio (1.1-2.1) L 12/02/20 05:47 SARS CoV-2 RNA Rapid LUCA Positive (NEGATIVE) A 08/06/21 12:46 - Plan (1) Pneumonia due to COVID-19 virus Status: Acute (2) JANIE (acute kidney injury) Status: Acute (3) Elevated d-dimer Status: Acute (4) HTN (hypertension) Status: Chronic Qualifiers: Hypertension type: primary hypertension
[2020-12-02] MEDS ORDERED: NS 1/2 1000 ML IV 1,000 ML IV ONE ×2 (17:17→23:50)
[2020-12-02] MEDS ORDERED: NS 50 ML IV + SPIKE MINIBAG* 50 ML IV ONE (19:37)
[2020-12-02] MEDS: MELATONIN PO SCH (20:26)
[2020-12-02] MEDS: IVERMECTIN PO SCH (20:27)
[2020-12-02] MEDS: LIPITOR TAB 80 MG PO SCH (20:27)
[2020-12-02] MEDS: SINGULAIR TAB 10 MG PO SCH (20:28)
[2020-12-02] MEDS: SNACK - Diabetic Appropriate PO SCH (20:29)
[2020-12-02] MEDS: OLMESARTAN 5 MG PO SCH (21:04)
[2020-12-02] MEDS: AMBIEN PO PRN (21:05)
[2020-12-03] MEDS: ASCORBIC ACID INJ MULTI-DOSE VIAL 1,500 MG in NS 50 ML IV 50 ML IV SCH ×2 (02:08→08:23)
[2020-12-03 05:11] LABS: BASOPHILS % (AUTO) 0 % (0.2-1.0); EOSINOPHILS # (AUTO) 0.1 x10^3/uL (0.0-0.2); EOSINOPHILS % (AUTO) 0.5 % (0.9-2.9); HEMATOCRIT 25.8 % (36.0-47.0); HEMOGLOBIN 8.7 g/dL (12.0-16.0); LYMPHOCYTES # (AUTO) 0.9 X10^3/uL (1.3-2.9); LYMPHOCYTES % (AUTO) 4.2 % (21.0-51.0); MEAN CORPUSCULAR HEMOGLOBIN 27.5 pg (27.0-34.0); MEAN CORPUSCULAR HGB CONC 33.8 g/dL (33.0-35.0); MEAN CORPUSCULAR VOLUME 81.4 fL (80.0-100.0); MEAN PLATELET VOLUME 7.3 fL (7.4-11.0); MONOCYTES % (AUTO) 9.2 % (0.0-13.0); NEUTROPHILS # (AUTO) 19.2 x10^3/uL (2.2-4.8); NEUTROPHILS % (AUTO) 86.1 % (42.0-75.0); PLATELET COUNT 406 X10^3/uL (150.0-450.0); RED BLOOD COUNT 3.17 X10^6/uL (3.5-5.4); RED CELL DISTRIBUTION WIDTH 21.9 % (11.6-16.5); WHITE BLOOD COUNT 22.3 X10^3/uL (3.6-10.0)
[2020-12-03] MEDS: PERIACTIN TAB 4 MG PO SCH (05:28)
[2020-12-03] MEDS: TESSALON PERLES PO SCH (05:28)
[2020-12-03] MEDS: BENTYL CAP 10 MG PO SCH (05:29)
[2020-12-03 05:34] LABS: ALBUMIN 2.3 g/dL (3.4-5.0); CALCIUM 8.2 mg/dL (8.5-10.1); CARBON DIOXIDE 23.9 mmol/L (21-32); COR CA(FOR HYPOALB) 9.6 mg/dL (8.5-10.1); CREATININE 1.41 mg/dL (0.55-1.02); TOTAL PROTEIN 6.2 g/dL (6.4-8.2)
[2020-12-03 05:56] LABS: ANISOCYTOSIS 1+; METAMYELOCYTES % 5; MYELOCYTES % 5; PLATELET MORPHOLOGY COMMENT NORMAL (NORMAL)
[2020-12-03] MEDS ORDERED: K-RIDER 10 MEQ/NS 100 ML 10 MEQ/100 ML BAG IV PRN (05:57)
[2020-12-03] MEDS ORDERED: KLOR-CON PO PRN (05:57)
[2020-12-03] MEDS ORDERED: POTASSIUM CHLORIDE LIQ 20 MEQ UDC PO PRN (05:57)
[2020-12-03] MEDS ORDERED: POTASSIUM CHL 60 MEQ/NS 0.45% 500 ML IV PRN (05:57)
[2020-12-03] MEDS ORDERED: POTASSIUM CHL 40 MEQ/NS 0.45% 500 ML IV PRN (05:57)
[2020-12-03] MEDS ORDERED: K-DUR TAB 20 MEQ PO PRN (05:57)
[2020-12-03] MEDS ORDERED: MICRO K EXTEN CAP 10 MEQ PO PRN (05:57)
[2020-12-03] MEDS ORDERED: MAGNESIUM SULFATE 1 GRAM/100 mL PREMIX 1 GM/100 ML BAG IV PRN (05:57)
--- NOTE | 2020-12-03 06:27 | RAD ---
HISTORYSOBSTUDYCHEST, 1 [id number]/09/2021.TECHNIQUEAP view of the chestFINDINGSCardiac and mediastinal contours are within normal limits. No significant change in scattered bilateral patchy and interstitial pulmonary opacities. No definite pleural effusion or pneumothorax.IMPRESSIONNo significant change bilateral COVID pneumonia.Electronically signed by: Orlando Ivy (Dec 03, 2020 06:25:43)
[2020-12-03] MEDS: DIFLUCAN PO SCH (08:23)
[2020-12-03] MEDS: GLUCOTROL XL 24-HR PO SCH (08:24)
[2020-12-03] MEDS: LOVENOX INJ 30 MG SYR SC SCH (08:24)
[2020-12-03] MEDS: NORCO 7.5/325 MG TAB PO SCH (08:25)
[2020-12-03] MEDS: PROTONIX TAB 40 MG PO SCH (08:26)
[2020-12-03] MEDS: PEPCID TAB 40 MG PO SCH (08:26)
[2020-12-03] MEDS: THIAMINE HCL INJ IVP SCH (08:26)
[2020-12-03] MEDS: ZYLOPRIM PO SCH (08:27)
[2020-12-03] MEDS: VITAMIN D3 125 mcg (5,000 UNITS) PO SCH (08:27)
[2020-12-03] MEDS: ZINC SULFATE PO SCH (08:27)
[2020-12-03] MEDS ORDERED: NS 100 ML IV + SPIKE MINIBAG* 100 ML IV ONE (09:53)
[2020-12-03] MEDS: BROVANA IN SCH (10:00)
[2020-12-03] MEDS: PULMICORT NEB TX 0.5 MG NEB SCH (10:00)
[2020-12-03] MEDS ORDERED: FORTAZ or TAZICEF VIAL INJ 1 G in NS 100 ML IV + SPIKE MINIBAG* 100 ML IV SCH (10:00)
[2020-12-03] MEDS: REMDESIVIR 100 MG in NS 250 ML IV 250 ML IV SCH (11:00)
[2020-12-03 15:03] VITALS: BP 129/80
== END 2020-12-03 13:30 | disposition home or self-care (01) | DRG 177 ==
LOC: LAB 12:08 → OBS 12:08 → OUTPT REF 12:08 → MED/SURG 16:17
PROVIDERS: ADMIT Internal Medicine; ATTEND Internal Medicine
DX: U07.1 COVID-19; R79.89 Other specified abnormal findings of blood chemistry; N17.8 Other acute kidney failure; R09.02 Hypoxemia; J12.82 Pneumonia due to coronavirus disease 2019; I10 Essential (primary) hypertension; M25.579 Pain in unspecified ankle and joints of unspecified foot

== ENCOUNTER 2021-12-28 16:40 | Inpatient (IN) ==
[2021-12-28 18:18] LABS: STREP A BY PCR NOT DETECTED (NOT DETECT)
--- NOTE | 2021-12-28 18:21 | DR.GENAD ---
HPI Time Seen Time Seen by Provider: 12/28/21 18:20 PCP Primary Care Physician: DR. KANG Complaint/Symptoms Chief Complaint Doctors Comments: Sore throat with non productive cough. Chief Complaint:: PT STATES I THINK I HAVE STREP THROAT. PT STATES HER THROAT HURTS CONSTANTLY. PT STATES SHE HAS RAN A LOW GRADE TEMP. PT STATES SHE HAS ALSO HAD A NON PRODUCTIVE COUGH FOR A WHILE. Self Treatment fo Chief Complaint: PT HAS TAKEN TYLENOL. COVID-19 Coronavirus risk:travel/contact w/high risk person: No Has patient experienced Coronavirus symptoms: Yes Coronavirus symptoms experienced: Fever and Coughing Nurses notes reviewed Nurses Notes Review: Yes Source History Provided: Patient Mode of Arrival Mode of Arrival: Ambulatory Timing Onset of Chief Complaint: 12/26/21 PMH PMH Past Medical History: Yes Past Medical History: Diabetes Past Surgical History: Yes Surgical History: Cholecystectomy Family History History of Family Medical Conditions: Yes Family Medical History: Diabetes Mellitus, Cancer, Coronary Artery Disease and Heart Failure Social History Does patient currently use any type of tobacco product: No Have you used tobacco products in the last 12 months: No Type of Tobacco Use: None Does any household member use tobacco: No Alcohol Use: None Do you use any recreational Drugs:: No Lives With: Family Lives Where: Home Travel Risk Coronavirus risk:travel/contact w/high risk person: No Has patient experienced Coronavirus symptoms: Yes Coronavirus symptoms experienced: Fever and Coughing Infectious screening In the last 2 months have you had wt loss of >10#?: NO Have you had fever, night sweats or hemotysis?: Yes Have you traveled outside the country in the last 6 months?: No Isolation: Standard ROS Review of Systems Constitutional: See HPI, Weakness and Fatigue; negative Fever Eyes: See HPI, Blurred Vision and Diplopia ENTM: See HPI and Nose Congestion; negative Nose Discharge Respiratoy: See HPI, Non-Productive Cough and Short of Breath (ON EXERTION.); negative Wheezing Cardiovascular: No Symptoms Reported and See HPI; negative Chest Pain, Edema or Palpitations Gastrointestinal/Abdominal: No Symptoms Reported, See HPI and Nausea; negative Abdominal Pain, Diarrhea or Vomiting Genitourinary: No Symptoms Reported and See HPI; negative Dysuria, Frequency or Hematuria Neurological: See HPI, Headache, Paresthesia, Weakness, Dizziness and Problems Walking Musculoskeletal: No Symptoms Reported and See HPI; negative Back Pain or Muscle Pain Integumentary: No Symptoms Reported and See HPI; negative Change in Color, Rash or Juandice Hematologic/Lymphatic: No Symptoms Reported and See HPI; negative Easy Bruising or Swollen Glands Endocrine: No Symptoms Reported and See HPI; negative Increased Thirst or Increased Urine Psychiatric: No Symptoms Reported and See HPI All Other Systems: Reviewed and Negative PE Vital Signs Vitals: Temperature 98.9 F Pulse Rate [Left Brachial] 90 Pulse Rate 112 Respiratory Rate 20 Blood Pressure [Left Arm] 116/59 Blood Pressure 126/61 O2 Sat by Pulse Oximetry 95 General Limitations: No Limitations General Appearance: Alert and In No Apparent Distress Head Head Exam: Normal Inspection Eyes Eye exam: Normal Appearance ENT ENT Exam: Normal Exam External Ear Exam: Normal External Inspection TM/Canal Exam: Bilateral: Normal Nose Exam: Normal Nose Exam Mouth Exam: Normal Inspection Throat Exam: Tonsillar Erythema Neck Neck Exam: Normal Inspection Chest Chest Inspection: Normal Inspection and Symmetric Chest Wall Rise Respiratory Respiratory Exam: Normal Lung Sounds Bilat Respiratory Exam: Bilateral: Clear to Auscultation Cardiovascular Cardiovascular Exam: Regular Rate and Normal Rhythm Abdominal Exam Abdominal Exam: Normal Inspection, Normal Bowel Sounds and Soft Extremities Extremities Exam: Normal Inspection Back Back Exam: Normal Inspection Neurologic Neurological Exam: Alert and Oriented X3 Psychiatric Psychiatric Exam: Normal Affect and Normal Mood Skin Skin Exam: Warm, Dry, Intact and Normal Color MDM Differential Diagnosis Differential Diagnosis: Strep infection, Covid 19, sinusitis COURSE Treatment Treatment: Orders while in ED completed and reviewed. Dr. Reyna consulted and agrees to admit patient Reevaluation 1st: Improved Consultation Call Returned: 20:17 Consultation Comments: Dr. Reyna Education/Counseling Education/Counseling: Patient and Counseling Educated On: Treatment ROR Labs Reviewed Laboratory Results Reviewed?: Yes Result Diagrams: 01/06/22 06:28 01/06/22 05:22 Laboratory: 12/28/21 18:45 Urine,Clean Catch Urine Culture - Final WBC 21.4 X10^3/uL (3.6-10.0) H 12/30/21 05:19 RBC 2.58 X10^6/uL (3.5-5.4) L 12/30/21 05:19 Hgb 7.7 g/dL (12.0-16.0) L 12/30/21 05:19 Hct 22.7 % (36.0-47.0) L 12/30/21 05:19 MCV 88.1 fL (80.0-100.0) 12/30/21 05:19 MCH 29.9 pg (27.0-34.0) 12/30/21 05:19 MCHC 33.9 g/dL (33.0-35.0) 12/30/21 05:19 RDW 18.3 % (11.6-16.5) H 12/30/21 05:19 Plt Count 351 X10^3/uL (150.0-450.0) 12/30/21 05:19 Plt Count Comment Adequate (ADEQUATE) 12/30/21 05:19 MPV 6.7 fL (7.4-11.0) L 12/30/21 05:19 Neut % (Auto) 87.3 % (42.0-75.0) H 12/30/21 05:19 Lymph % (Auto) 5.4 % (21.0-51.0) L 12/30/21 05:19 [place] % (Auto) 5.6 % (0.0-13.0) 12/30/21 05:19 Eos % (Auto) 1.0 % (0.9-2.9) 12/30/21 05:19 Baso % (Auto) 0.7 % (0.2-1.0) 12/30/21 05:19 Neut # (Auto) 18.7 x10^3/uL (2.2-4.8) H 12/30/21 05:19 Lymph # (Auto) 1.2 X10^3/uL (1.3-2.9) L 12/30/21 05:19 [place] # (Auto) 1.2 x10^3/uL (0.3-0.8) H 12/30/21 05:19 Eos # (Auto) 0.2 x10^3/uL (0.0-0.2) 12/30/21 05:19 Baso # (Auto) 0.1 X10^3/uL (0.0-0.1) 12/30/21 05:19 Absolute Nucleated RBC 0.1 /100WBC 12/30/21 05:19 Total Counted 100 12/30/21 05:19 Neutrophils % (Manual) 89 % (39-76) H 12/30/21 05:19 Band Neutrophils % 1 % (0-10) 12/29/21 05:04 Lymphocytes % (Manual) 7 % (13-43) L 12/30/21 05:19 Monocytes % (Manual) 3 % (4-9) L 12/30/21 05:19 Eosinophils % (Manual) 1 % (0-6) 12/30/21 05:19 Metamyelocytes % 1 12/28/21 18:32 Myelocytes % 2 12/28/21 18:32 Atypical Lymphocytes Rare A 12/28/21 18:32 Plt Morphology Comment Normal (NORMAL) 12/30/21 05:19 RBC Morphology Abnormal (NORMAL) A 12/30/21 05:19 Anisocytosis Slight A 12/30/21 05:19 Stomatocytes 1+ A 12/28/21 18:32 Sodium 133 mmol/L (136-145) L 12/30/21 05:19 Corrected Sodium 133 mmol/L (136-145) L 12/30/21 05:19 Potassium 3.2 mmol/L (3.5-5.1) L 12/30/21 05:19 Chloride 98 mmol/L (98-107) 12/30/21 05:19 Carbon Dioxide 29.5 mmol/L (21-32) 12/30/21 05:19 BUN 15 mg/dL (7-18) 12/30/21 05:19 Creatinine 1.10 mg/dL (0.55-1.02) H 12/30/21 05:19 Est GFR (MDRD) Af Amer > 60 (>60) 12/30/21 05:19 Est GFR (MDRD) Non-Af 52 (>60) L 12/30/21 05:19 Glucose 113 mg/dL (65-99) H 12/30/21 05:19 POC Glucose (mg/dL) 155 mg/dL (65-99) H 12/29/21 16:45 Calcium 7.9 mg/dL (8.5-10.1) L 12/30/21 05:19 Corrected Calcium 9.4 mg/dL (8.5-10.1) 12/30/21 05:19 Magnesium 2.3 mg/dL (1.7-2.9) 12/30/21 05:19 Total Bilirubin 0.20 mg/dL (0.2-1.0) 12/30/21 05:19 AST 40 Units/L (15-37) H 12/30/21 05:19 ALT 43 Units/L (12-78) 12/30/21 05:19 Alkaline Phosphatase 196 Units/L (46-116) H 12/30/21 05:19 Creatine Kinase 26 Units/L (26-192) 12/29/21 07:45 Troponin I High Sens 24.0 ng/L (4.0-60.0) 12/29/21 07:45 Total Protein 6.5 g/dL (6.4-8.2) 12/30/21 05:19 Albumin 2.1 g/dL (3.4-5.0) L 12/30/21 05:19 Globulin 4.4 g/dL (2.5-4.5) 12/30/21 05:19 Albumin/Globulin Ratio 0.5 Ratio (1.1-2.1) L 12/30/21 05:19 Specimen Type Clean catch urine 12/28/21 18:45 Urine Color Pale yellow (YELLOW) 12/28/21 18:45 Urine Appearance Slightly hazy (CLEAR) 12/28/21 18:45 Urine pH 6.0 (5.0 - 8.0) 12/28/21 18:45 Ur Specific [place] 1.010 (1.000-1.030) 12/28/21 18:45 Urine Protein Negative (NEGATIVE) 12/28/21 18:45 Urine Glucose (UA) Negative (NEGATIVE) 12/28/21 18:45 Urine Ketones Negative (NEGATIVE) 12/28/21 18:45 Urine Blood 1+ (NEGATIVE) 12/28/21 18:45 Urine Nitrite Negative (NEGATIVE) 12/28/21 18:45 Urine Bilirubin Negative (NEGATIVE) 12/28/21 18:45 Urine Urobilinogen Normal (NORMAL) 12/28/21 18:45 Ur Leukocyte Esterase 3+ (NEGATIVE) 12/28/21 18:45 Urine RBC 3-5 /HPF (0-3) A 12/28/21 18:45 Urine WBC 10-20 /HPF (0-5) A 12/28/21 18:45 Ur Squamous Epith Cells Few /HPF (NEGATIVE) 12/28/21 18:45 Urine Bacteria 1+ /HPF (NEGATIVE) 12/28/21 18:45 Ur Culture Indicated? Yes/culture set up 12/28/21 18:45 SARS-CoV-2 (PCR) Negative (NEGATIVE) 12/28/21 17:32 Monoscreen Negative (NEGATIVE) 12/28/21 18:32 Influenza Type A (PCR) Negative (NEGATIVE) 12/28/21 17:32 Influenza Type B (PCR) Negative (NEGATIVE) 12/28/21 17:32 RSV (PCR) Negative (NEGATIVE) 12/28/21 17:32 S. pyogenes (TEM-PCR) Not detected (NOT DETECT) 12/29/21 11:38 XRAY XRAY Interpreted by: Radiologist and Self X-ray Results: [id number] 1950 Sex: F Location: ER Order Number(s): [id number] Procedure(s):CHEST, 1 VIEW Ordering Physician: FAITH MENDOZA Primary Care: Jaspreet Kang Service Date: 12/28/21 Service Time: 1820 HISTORY SOB STUDY CHEST, 1 VIEW COMPARISON December 03, [address] chest from November 30, 2020 TECHNIQUE Chest radiographic imaging, AP portable projection, 1 image FINDINGS No cardiomegaly. Left pericardial fat pad. No focal airspace disease. No pleural effusion. No pneumothorax. No acute osseous abnormality. IMPRESSION No imaging findings of acute cardiopulmonary disease. Electronically signed by: Jamel Young (Dec 28, 2021 18:35:46) Report Electronically signed: 12/28/21 [id number] CC: Faith Mendoza EKG Rate: 105 [place]: Normal Rhythm: ST Opioid Opioid Risk Tool Age (Kevon box if 16-45): No History of Preadolescent Sexual Abuse: No Total: 0 Total Score Risk Category: Low Risk Copyright: Veto CRAWFORD predicting aberrant behaviors Discharge Plan Diagnosis Discharge Problem: Bronchitis, Dehydration UTI (urinary tract infection) Qualifiers: Urinary tract infection type: acute cystitis Hematuria presence: with hematuria Qualified Code(s): N30.01 - Acute cystitis with hematuria Leukocytosis Qualifiers: Leukocytosis type: unspecified Qualified Code(s): D72.829 - Elevated white blood cell count, unspecified Discharge Plan Patient Disposition: ADMITTED INPATIENT Condition: Stable
--- NOTE | 2021-12-28 18:37 | RAD ---
HISTORYSOBSTUDYCHEST, [address] chest from November 30, 2020TECHNIQUEChest radiographic imaging, AP portable projection, 1 imageFINDINGSNo cardiomegaly.Left pericardial fat pad.No focal airspace disease.No pleural effusion.No pneumothorax.No acute osseous abnormality.IMPRESSIONNo imaging findings of acute cardiopulmonary disease.Electronically signed by: Jamel Young (Dec 28, 2021 18:35:46)
[2021-12-28] MEDS ORDERED: MORPHINE SULFATE INJ 4 MG IM ONE (18:38)
[2021-12-28] MEDS ORDERED: ZOFRAN INJ 4 MG VIAL IM ONE (18:38)
[2021-12-28 18:44] LABS: BASOPHILS # (AUTO) 0.1 X10^3/uL (0.0-0.1); BASOPHILS % (AUTO) 0.3 % (0.2-1.0); EOSINOPHILS # (AUTO) 0.2 x10^3/uL (0.0-0.2); EOSINOPHILS % (AUTO) 0.9 % (0.9-2.9); HEMATOCRIT 28.6 % (36.0-47.0); HEMOGLOBIN 9.6 g/dL (12.0-16.0); LYMPHOCYTES # (AUTO) 1.4 X10^3/uL (1.3-2.9); LYMPHOCYTES % (AUTO) 5.6 % (21.0-51.0); MEAN CORPUSCULAR HEMOGLOBIN 29.4 pg (27.0-34.0); MEAN CORPUSCULAR HGB CONC 33.6 g/dL (33.0-35.0); MEAN CORPUSCULAR VOLUME 87.7 fL (80.0-100.0); MEAN PLATELET VOLUME 6.2 fL (7.4-11.0); MONOCYTES # (AUTO) 1.1 x10^3/uL (0.3-0.8); MONOCYTES % (AUTO) 4.3 % (0.0-13.0); NEUTROPHILS # (AUTO) 21.9 x10^3/uL (2.2-4.8); NEUTROPHILS % (AUTO) 88.9 % (42.0-75.0); RED BLOOD COUNT 3.27 X10^6/uL (3.5-5.4); WHITE BLOOD COUNT 24.6 X10^3/uL (3.6-10.0)
[2021-12-28] MEDS ORDERED: ZOFRAN INJ 4 MG VIAL ONE (18:48)
[2021-12-28] MEDS ORDERED: MORPHINE SULFATE INJ 4 MG ONE (18:48)
[2021-12-28 18:55] LABS: ALBUMIN 2.8 g/dL (3.4-5.0); CALCIUM 8.8 mg/dL (8.5-10.1); CARBON DIOXIDE 31.8 mmol/L (21-32); COR CA(FOR HYPOALB) 9.8 mg/dL (8.5-10.1); CREATININE 1.48 mg/dL (0.55-1.02); TOTAL PROTEIN 7.9 g/dL (6.4-8.2)
[2021-12-28 18:58] LABS: BILIRUBIN,URINE NEGATIVE (NEGATIVE); BLOOD/HEMOGLOBIN,URINE 1+ (NEGATIVE); GLUCOSE, URINE NEGATIVE (NEGATIVE); KETONES,URINE NEGATIVE (NEGATIVE); LEUKOCYTE ESTERASE ,URINE 3+ (NEGATIVE); NITRITES,URINE NEGATIVE (NEGATIVE); PROTEIN,URINE NEGATIVE (NEGATIVE); UROBILINOGEN,URINE NORMAL (NORMAL)
[2021-12-28 19:07] LABS: APPEARANCE,URINE SLIGHTLY HAZY (CLEAR); COLOR,URINE PALE YELLOW (YELLOW)
[2021-12-28 19:08] LABS: BACTERIA,URINE 1+ /HPF (NEGATIVE); SQUAMOUS EPITHELIAL CELL,UR FEW /HPF (NEGATIVE)
[2021-12-28 19:20] LABS: ANISOCYTOSIS SLIGHT; BAND NEUTROPHILS % 1 % (0-10); METAMYELOCYTES % 1; MYELOCYTES % 2; PLATELET MORPHOLOGY COMMENT NORMAL (NORMAL); STOMATOCYTES 1+
[2021-12-28] MEDS ORDERED: ROCEPHIN 1 GRAM IV PREMIX 1 G/50 ML IV.SOLN. IV ONE (20:28)
[2021-12-28] MEDS ORDERED: ROCEPHIN VIAL 1 GRAM ONE (20:33)
[2021-12-28] MEDS ORDERED: NS 1,000 ML IV 1,000 ML ONE (20:34)
[2021-12-28] MEDS ORDERED: NS 50 ML IV 50 ML IV ONE (20:34)
[2021-12-28] MEDS: NS 1,000 ML IV 1,000 ML IV SCH (21:17)
[2021-12-28] MEDS ORDERED: ZOFRAN INJ 4 MG VIAL IVP PRN (22:20)
[2021-12-28] MEDS ORDERED: NS 1,000 ML IV 1,000 ML IV SCH (22:20)
[2021-12-28] MEDS: DEMEROL INJ IVP PRN (22:57)
[2021-12-28] MEDS ORDERED: POTASSIUM CHL 60 MEQ/NS 0.45% 500 ML IV PRN (23:14)
[2021-12-28] MEDS ORDERED: POTASSIUM CHL 40 MEQ/NS 0.45% 500 ML IV PRN (23:14)
[2021-12-28] MEDS ORDERED: MICRO K EXTEN CAP 10 MEQ PO PRN (23:14)
[2021-12-28] MEDS ORDERED: K-RIDER 10 MEQ/NS 100 ML 10 MEQ/100 ML BAG IV PRN (23:14)
[2021-12-28] MEDS ORDERED: POTASSIUM CHLORIDE LIQ 20 MEQ UDC PO PRN (23:14)
[2021-12-28] MEDS ORDERED: KLOR-CON PO PRN (23:14)
[2021-12-28] MEDS ORDERED: K-DUR TAB 20 MEQ PO PRN (23:14)
[2021-12-29] MEDS: DEMEROL INJ IVP PRN ×2 (04:56→10:55)
[2021-12-29] MEDS: NS 1,000 ML IV 1,000 ML IV SCH ×3 (05:01→22:41)
[2021-12-29 06:02] LABS: BASOPHILS # (AUTO) 0.1 X10^3/uL (0.0-0.1); BASOPHILS % (AUTO) 0.5 % (0.2-1.0); EOSINOPHILS # (AUTO) 0.1 x10^3/uL (0.0-0.2); EOSINOPHILS % (AUTO) 0.4 % (0.9-2.9); HEMATOCRIT 23.8 % (36.0-47.0); HEMOGLOBIN 7.9 g/dL (12.0-16.0); LYMPHOCYTES # (AUTO) 1.3 X10^3/uL (1.3-2.9); LYMPHOCYTES % (AUTO) 5.4 % (21.0-51.0); MEAN CORPUSCULAR HEMOGLOBIN 28.9 pg (27.0-34.0); MEAN CORPUSCULAR HGB CONC 33.3 g/dL (33.0-35.0); MEAN CORPUSCULAR VOLUME 86.8 fL (80.0-100.0); MEAN PLATELET VOLUME 6.7 fL (7.4-11.0); MONOCYTES # (AUTO) 1.3 x10^3/uL (0.3-0.8); MONOCYTES % (AUTO) 5.3 % (0.0-13.0); NEUTROPHILS # (AUTO) 21.3 x10^3/uL (2.2-4.8); NEUTROPHILS % (AUTO) 88.4 % (42.0-75.0); RED BLOOD COUNT 2.74 X10^6/uL (3.5-5.4); RED CELL DISTRIBUTION WIDTH 18.5 % (11.6-16.5); WHITE BLOOD COUNT 24.1 X10^3/uL (3.6-10.0)
[2021-12-29 06:16] LABS: ANISOCYTOSIS SLIGHT; BAND NEUTROPHILS % 1 % (0-10); PLATELET MORPHOLOGY COMMENT NORMAL (NORMAL)
[2021-12-29 06:19] LABS: ALBUMIN 2.2 g/dL (3.4-5.0); CALCIUM 8.3 mg/dL (8.5-10.1); CARBON DIOXIDE 30.2 mmol/L (21-32); COR CA(FOR HYPOALB) 9.7 mg/dL (8.5-10.1); CREATININE 1.35 mg/dL (0.55-1.02); MAGNESIUM 1.2 mg/dL (1.7-2.9); TOTAL PROTEIN 6.5 g/dL (6.4-8.2)
[2021-12-29] MEDS: LOVENOX INJ 40 MG SYR SC SCH (11:00)
[2021-12-29] MEDS ORDERED: CHLORASEPTIC SPRAY MT PRN (11:06)
[2021-12-29] MEDS ORDERED: CEPACOL SORE THROAT LOZ MT PRN (11:06)
--- NOTE | 2021-12-29 11:15 | DR.H&P ---
H&P History & Physical for Day of: H&P Date: 12/29/21 Chief Complaint Chief Complaint: sore throat, weakness Allergies Allergies Allergy/AdvReac Type Severity Reaction Status Date / Time No Known Drug Allergies Allergy Verified 04/29/20 20:19 History of Present Illness History of Present Illness: Ms Bryant is a 71y/o female with a PMH of anemia, diabetes, GERD and HTN presents with sore throat and generalized weakness. She reports pain with eating since Wednesday. She denies cough. In the ER, she was noted to have UTI. Covid, flu and strep were negative. CXR did not show acute process. She was started on IV Rocephin. Troponin x 4 negative. Hgb 7.9. Patient does have a hx of anemia requiring blood transfusions. Denies active bleeding. Labs/imaging reviewed - Mg 1.2 Plan: Replace mag as per protocol. Patient does have some erythema in the post oropharynx, will repeat strep swab. Continue IV Rocephin. Follow urine Cx. Add chloraseptic spray. Change diet to full liquids. Encouraged ambulation as tolerated. Resume home medications. Repeat H/H at 5 pm, if below 7 then transfuse 2 units PRBCs. Monitor AM labs/imaging. Past Medical History Past Medical History: Diabetes Past Surgical History Surgical History: Abdominal Surgery, Cholecystectomy, Hysterectomy and Ortho Surgery Family History Family Medical History: Diabetes Mellitus, Coronary Artery Disease, Heart Failure and Hypertension Social History Does patient currently use any type of tobacco product: No Have you used tobacco products in the last 12 months: No Type of Tobacco Use: None Does any household member use tobacco: No Alcohol Use: None Drug Use: None Medications Home Medications: No Known Drug Allergies Allergy (Verified 04/29/20 20:19) CONTINUE taking the following medications cyanocobalamin (vitamin B-12) 5,000 mcg sublingual tablet (Vitamin B-12) 1 tab sublingual QDAY 12/28/21 [History] dicyclomine 20 mg tablet 1 tab PO QID PRN 12/28/21 [History] furosemide 40 mg tablet 1 tab PO BID PRN swelling 12/28/21 [History] gabapentin 300 mg capsule 1 cap PO TID 12/28/21 [History] glipizide 5 mg tablet, extended release 24 hr 1 tab PO QDAY 12/28/21 [History] hydrocodone 10 mg-acetaminophen 325 mg tablet 1 tab PO TID PRN pain 12/28/21 [History] iron-folic acid-multivitamin, mineral comb#15 106 mg iron-1 mg capsule (Hemocyte-Plus) 1 cap PO QDAY 12/28/21 [History] olmesartan 5 mg tablet 1 tab PO QPM 12/28/21 [History] pantoprazole 40 mg tablet,delayed release 1 tab PO BID 12/28/21 [History] promethazine 25 mg tablet 1 tab PO Q6H PRN nausea/vomiting 12/28/21 [History] triamterene 37.5 mg-hydrochlorothiazide 25 mg capsule 1 cap PO QAM 12/28/21 [History] zolpidem 10 mg tablet 1 tab PO QPM 12/28/21 [History] Labs Result Diagrams: 12/29/21 05:04 12/29/21 05:04 Labs: 12/28/21 18:45 Urine,Clean Catch Urine Culture - Preliminary Laboratory WBC 24.1 X10^3/uL (3.6-10.0) H 12/29/21 05:04 RBC 2.74 X10^6/uL (3.5-5.4) L 12/29/21 05:04 Hgb 7.9 g/dL (12.0-16.0) L 12/29/21 05:04 Hct 23.8 % (36.0-47.0) L 12/29/21 05:04 MCV 86.8 fL (80.0-100.0) 12/29/21 05:04 MCH 28.9 pg (27.0-34.0) 12/29/21 05:04 MCHC 33.3 g/dL (33.0-35.0) 12/29/21 05:04 RDW 18.5 % (11.6-16.5) H 12/29/21 05:04 Plt Count 356 X10^3/uL (150.0-450.0) 12/29/21 05:04 Plt Count Comment Adequate (ADEQUATE) 12/29/21 05:04 MPV 6.7 fL (7.4-11.0) L 12/29/21 05:04 Neut % (Auto) 88.4 % (42.0-75.0) H 12/29/21 05:04 Lymph % (Auto) 5.4 % (21.0-51.0) L 12/29/21 05:04 [place] % (Auto) 5.3 % (0.0-13.0) 12/29/21 05:04 Eos % (Auto) 0.4 % (0.9-2.9) L 12/29/21 05:04 Baso % (Auto) 0.5 % (0.2-1.0) 12/29/21 05:04 Neut # (Auto) 21.3 x10^3/uL (2.2-4.8) H 12/29/21 05:04 Lymph # (Auto) 1.3 X10^3/uL (1.3-2.9) 12/29/21 05:04 [place] # (Auto) 1.3 x10^3/uL (0.3-0.8) H 12/29/21 05:04 Eos # (Auto) 0.1 x10^3/uL (0.0-0.2) 12/29/21 05:04 Baso # (Auto) 0.1 X10^3/uL (0.0-0.1) 12/29/21 05:04 Absolute Nucleated RBC 0.0 /100WBC 12/29/21 05:04 Total Counted 100 12/29/21 05:04 Neutrophils % (Manual) 87 % (39-76) H 12/29/21 05:04 Band Neutrophils % 1 % (0-10) 12/29/21 05:04 Lymphocytes % (Manual) 5 % (13-43) L 12/29/21 05:04 Monocytes % (Manual) 7 % (4-9) 12/29/21 05:04 Eosinophils % (Manual) 1 % (0-6) 12/28/21 18:32 Metamyelocytes % 1 12/28/21 18:32 Myelocytes % 2 12/28/21 18:32 Atypical Lymphocytes Rare A 12/28/21 18:32 Plt Morphology Comment Normal (NORMAL) 12/29/21 05:04 RBC Morphology Abnormal (NORMAL) A 12/29/21 05:04 Anisocytosis Slight A 12/29/21 05:04 Stomatocytes 1+ A 12/28/21 18:32 Sodium 133 mmol/L (136-145) L 12/29/21 05:04 Corrected Sodium 135 mmol/L (136-145) L 12/29/21 05:04 Potassium 3.6 mmol/L (3.5-5.1) 12/29/21 05:04 Chloride 96 mmol/L (98-107) L 12/29/21 05:04 Carbon Dioxide 30.2 mmol/L (21-32) 12/29/21 05:04 BUN 24 mg/dL (7-18) H 12/29/21 05:04 Creatinine 1.35 mg/dL (0.55-1.02) H 12/29/21 05:04 Est GFR (MDRD) Af Amer 50 (>60) L 12/29/21 05:04 Est GFR (MDRD) Non-Af 41 (>60) L 12/29/21 05:04 Glucose 175 mg/dL (65-99) H 12/29/21 05:04 Calcium 8.3 mg/dL (8.5-10.1) L 12/29/21 05:04 Corrected Calcium 9.7 mg/dL (8.5-10.1) 12/29/21 05:04 Magnesium 1.2 mg/dL (1.7-2.9) L 12/29/21 05:04 Total Bilirubin 0.30 mg/dL (0.2-1.0) 12/29/21 05:04 AST 20 Units/L (15-37) 12/29/21 05:04 ALT 26 Units/L (12-78) 12/29/21 05:04 Alkaline Phosphatase 153 Units/L (46-116) H 12/29/21 05:04 Creatine Kinase 26 Units/L (26-192) 12/29/21 07:45 Troponin I High Sens 24.0 ng/L (4.0-60.0) 12/29/21 07:45 Total Protein 6.5 g/dL (6.4-8.2) 12/29/21 05:04 Albumin 2.2 g/dL (3.4-5.0) L 12/29/21 05:04 Globulin 4.3 g/dL (2.5-4.5) 12/29/21 05:04 Albumin/Globulin Ratio 0.5 Ratio (1.1-2.1) L 12/29/21 05:04 Specimen Type Clean catch urine 12/28/21 18:45 Urine Color Pale yellow (YELLOW) 12/28/21 18:45 Urine Appearance Slightly hazy (CLEAR) 12/28/21 18:45 Urine pH 6.0 (5.0 - 8.0) 12/28/21 18:45 Ur Specific [place] 1.010 (1.000-1.030) 12/28/21 18:45 Urine Protein Negative (NEGATIVE) 12/28/21 18:45 Urine Glucose (UA) Negative (NEGATIVE) 12/28/21 18:45 Urine Ketones Negative (NEGATIVE) 12/28/21 18:45 Urine Blood 1+ (NEGATIVE) 12/28/21 18:45 Urine Nitrite Negative (NEGATIVE) 12/28/21 18:45 Urine Bilirubin Negative (NEGATIVE) 12/28/21 18:45 Urine Urobilinogen Normal (NORMAL) 12/28/21 18:45 Ur Leukocyte Esterase 3+ (NEGATIVE) 12/28/21 18:45 Urine RBC 3-5 /HPF (0-3) A 12/28/21 18:45 Urine WBC 10-20 /HPF (0-5) A 12/28/21 18:45 Ur Squamous Epith Cells Few /HPF (NEGATIVE) 12/28/21 18:45 Urine Bacteria 1+ /HPF (NEGATIVE) 12/28/21 18:45 Ur Culture Indicated? Yes/culture set up 12/28/21 18:45 SARS-CoV-2 (PCR) Negative (NEGATIVE) 12/28/21 17:32 Monoscreen Negative (NEGATIVE) 12/28/21 18:32 Influenza Type A (PCR) Negative (NEGATIVE) 12/28/21 17:32 Influenza Type B (PCR) Negative (NEGATIVE) 12/28/21 17:32 RSV (PCR) Negative (NEGATIVE) 12/28/21 17:32 S. pyogenes (TEM-PCR) Not detected (NOT DETECT) 12/28/21 17:32 Review of Systems Constitutional: Weakness and Malaise Eyes: No Symptoms Reported ENT: No Symptoms Reported Respiratory: Other (sore throat ) Cardiovascular: No Symptoms Reported Gastrointestinal: No Symptoms Reported Genitourinary: No Symptoms Reported Musculoskeletal: No Symptoms Reported Skin: No Symptoms Reported Neurological: No Symptoms Reported Physical Exam Vital Signs: Temperature 98.5 F Pulse Rate [Left Brachial] 93 Pulse Rate 112 Respiratory Rate 20 Blood Pressure [Left Arm] 118/55 Blood Pressure 126/61 O2 Sat by Pulse Oximetry 91 Oriented: Normal Eyes: Normal Ear: Normal Nose: Normal Throat: Red Respiratory: Clear Throughout Cardiovascular: Normal Auscultation: Bowel Sounds: Normal Palpation: Normal Tenderness: Normal Skin: Normal Musculoskeletal: Normal Psychiatric: Normal Mood Description: Calm and Appropriate Affect: Normal Speech Pattern: Clear and Appropriate Assessment/Plan (1) Bronchitis: Status: Acute (2) UTI (urinary tract infection): Status: Acute (3) Generalized weakness: Status: Acute (4) Hypomagnesemia: Status: Acute (5) HTN (hypertension): Qualifiers: Hypertension type: primary hypertension Status: Chronic Review H&P Reviewed: Yes Patient was examined?: Yes
[2021-12-29] MEDS: TORADOL 30 MG VIAL IVP PRN (13:39)
[2021-12-29 17:13] LABS: HEMATOCRIT 23.6 % (36.0-47.0); HEMOGLOBIN 7.9 g/dL (12.0-16.0)
[2021-12-29] MEDS: NORCO 10/325 TAB PO PRN (17:25)
[2021-12-29] MEDS: MAGNESIUM SULFATE 1 GRAM/100 mL PREMIX 1 G/100 ML BAG IV PRN ×4 (18:30→23:45)
[2021-12-29] MEDS ORDERED: ROCEPHIN VIAL 1 GRAM 1 G in NS 100 ML IV 100 ML IV SCH (21:00)
[2021-12-29] MEDS ORDERED: ROCEPHIN 1 GRAM IV PREMIX 1 G/50 ML IV.SOLN. IV SCH (21:00)
--- NOTE | 2021-12-30 06:01 | RAD ---
HISTORYBronchitis, shortness of breathSTUDYChest AP [id number]/04/2022FINDINGSHear t size is normal. Carol are normal. Lungs are well inflated and free of acute infiltrates. No pleural effusions are identified. Bony thorax is unremarkable.IMPRESSIONNo significant abnormality identifiedElectronically signed by: GLORIA GUERRERO (Dec 30, 2021 05:59:41)
[2021-12-30] MEDS: NS 1,000 ML IV 1,000 ML IV SCH ×4 (06:10→23:18)
[2021-12-30 06:37] LABS: BASOPHILS # (AUTO) 0.1 X10^3/uL (0.0-0.1); BASOPHILS % (AUTO) 0.7 % (0.2-1.0); EOSINOPHILS # (AUTO) 0.2 x10^3/uL (0.0-0.2); HEMATOCRIT 22.7 % (36.0-47.0); HEMOGLOBIN 7.7 g/dL (12.0-16.0); LYMPHOCYTES # (AUTO) 1.2 X10^3/uL (1.3-2.9); LYMPHOCYTES % (AUTO) 5.4 % (21.0-51.0); MEAN CORPUSCULAR HEMOGLOBIN 29.9 pg (27.0-34.0); MEAN CORPUSCULAR HGB CONC 33.9 g/dL (33.0-35.0); MEAN CORPUSCULAR VOLUME 88.1 fL (80.0-100.0); MEAN PLATELET VOLUME 6.7 fL (7.4-11.0); MONOCYTES # (AUTO) 1.2 x10^3/uL (0.3-0.8); MONOCYTES % (AUTO) 5.6 % (0.0-13.0); NEUTROPHILS # (AUTO) 18.7 x10^3/uL (2.2-4.8); NEUTROPHILS % (AUTO) 87.3 % (42.0-75.0); RED BLOOD COUNT 2.58 X10^6/uL (3.5-5.4); RED CELL DISTRIBUTION WIDTH 18.3 % (11.6-16.5); WHITE BLOOD COUNT 21.4 X10^3/uL (3.6-10.0)
[2021-12-30 06:52] LABS: ALANINE AMINOTRANSFERASE 43 Units/L (12-78); ALBUMIN 2.1 g/dL (3.4-5.0); ALKALINE PHOSPHATASE 196 Units/L (46-116); ASPARTATE AMINO TRANSFERASE 40 Units/L (15-37); BLOOD UREA NITROGEN 15 mg/dL (7-18); CALCIUM 7.9 mg/dL (8.5-10.1); CARBON DIOXIDE 29.5 mmol/L (21-32); CHLORIDE 98 mmol/L (98-107); COR CA(FOR HYPOALB) 9.4 mg/dL (8.5-10.1); COR NA(FOR HYPERGLY) 133 mmol/L (136-145); SODIUM 133 mmol/L (136-145); TOTAL PROTEIN 6.5 g/dL (6.4-8.2); eGFR NON BLACK RACES 52 (>60)
[2021-12-30 07:28] LABS: ANISOCYTOSIS SLIGHT; PLATELET MORPHOLOGY COMMENT NORMAL (NORMAL)
[2021-12-30] MEDS: LOVENOX INJ 40 MG SYR SC SCH (08:45)
[2021-12-30] MEDS ORDERED: LASIX PO PRN (09:36)
[2021-12-30] MEDS ORDERED: BENTYL CAP 10 MG PO PRN (09:36)
[2021-12-30] MEDS ORDERED: PHENERGAN TAB 25 MG PO PRN (09:36)
--- NOTE | 2021-12-30 10:48 | PCM.PROG ---
Progress Note - Progress Note for Day of Date of Exam: 12/30/21 - Subjective Subjective: WAS ADMITTED ON 12/28/21 FOR TREATMENT OF ACUTE BRONCHITIS, UTI, GENERALIZED WEAKNESS, HYPOMAGNESEMIA, AND HTN. TODAY, SHE IS ALERT AND ORIENTED, LYING IN BED ON MORNING ROUNDS SHE CONTINUES WITH COMPLAINTS OF GENERALIZED WEAKNESS AND A NON-PRODUCTIVE COUGH WITH OCCASIONAL SHORTNESS OF BREATH. ON EXAMINATION, THERE IS SOME ERYTHEMA TO THE OROPHARYNX NOTED. SHE HAS CHLOROSEPTIC SPRAY ORDERED NEEDED. HEART IS REGULAR IN RATE AND RHYTHM. BILATERAL LUNGS ARE NOTED WITH DIMINISHED LUNG SOUNDS THROUGHOUT. ABDOMEN IS ROUND, SOFT, AND NON-TENDER WITH NORMAL BOWEL SOUNDS NOTED IN ALL QUADRANTS. NO UPPER OR LOWER EXTREMITY EDEMA NOTED. HER VITALS THIS MORNING ARE: 98.9-90-20-95%-116/59. LABS WERE OBTAINED. WBC 21.4, RBC 2.58, HGB 7.7, HCT 22.7, SODIUM 133, POTASSIUM 3.2, BUN 15, CREATININE 1.10, GLUCOSE 113, CALCIUM 7.9, AST 40, ALT 43, ALK PHOS 196, TOTAL PROTEIN 6.5, ALBUMIN 2.1. URINE CULTURE WAS REPORTED CONTAMINATION. CHEST XRAY WAS REPEATED THIS MORNING AND REVEALED: No significant abnormality identified. SHE IS CURRENTLY RECEIVING NORMAL SALINE AT 125 ML/HR, ROCEPHIN 1G IV DAILY, THE POTASSIUM AND MAGNESIUM PROTOCOLS, LOVENOX 40MG SC DAILY, TORADOL 30MG IV Q6H PRN, ZOFRAN 4MG IV Q6H PRN, CHLORASEPTIC SPRAY Q2H PRN, AND HER HOME MEDICATIONS WERE RESUMED. TODAY, WE WILL OBTAIN A LACTIC ACID, BLOOD CULTURES, AND WILL REPEAT URINE CULTURES. WE WILL DISCONTINUE THE ROCEPHIN AND START FORTAZ 1G IV Q8H AND LEVAQUIN 500MG IV DAILY. OTHERWISE, WE WILL FOLLOW-UP WITH AM LABS AND CONTINUE TO MONITOR. TIME SPENT ON CLINICAL ASSESSMENT, REVIWING LABS AND IMAGING, DECISION MAKING, AND DOCUMENTATION GREATER THAN 45 MINUTES. - Past Medical Family Social History Past Med/Fam/Surg Hx: No changes since H&P Allergies: Allergies No Known Drug Allergies Allergy (Verified 04/29/20 20:19) - Review of Systems ROS: No change since H&P - Vital Signs and I&O's Vital Signs: Temperature 98.9 F Pulse Rate [Left Brachial] 90 Pulse Rate 112 Respiratory Rate 20 Blood Pressure [Left Arm] 116/59 Blood Pressure 126/61 O2 Sat by Pulse Oximetry 95 Intake and Output: Intake & Output 12/27/21 12/28/21 12/29/21 12/30/21 11:59 11:59 11:59 11:59 Intake Total 1051 / 1051 3896 / 3896 Balance 1051 / 1051 3896 / 3896 - Physical Exam Oriented: Normal Eyes: Normal Ear: Normal Nose: Normal Throat: Red Respiratory: Generalized, Diminished Cardiovascular: Normal Auscultation: Bowel Sounds: Normal Palpation: Normal Tenderness: Normal Skin: Normal Musculoskeletal: Normal Psychiatric: Normal Mood Description: Calm, Appropriate Affect: Normal Speech Pattern: Clear, Appropriate - Laboratory and Diagnostics Result Diagrams: 12/30/21 05:19 12/30/21 05:19 Labs: 12/28/21 18:45 Urine,Clean Catch Urine Culture - Final Laboratory WBC 21.4 X10^3/uL (3.6-10.0) H 12/30/21 05:19 RBC 2.58 X10^6/uL (3.5-5.4) L 12/30/21 05:19 Hgb 7.7 g/dL (12.0-16.0) L 12/30/21 05:19 Hct 22.7 % (36.0-47.0) L 12/30/21 05:19 MCV 88.1 fL (80.0-100.0) 12/30/21 05:19 MCH 29.9 pg (27.0-34.0) 12/30/21 05:19 MCHC 33.9 g/dL (33.0-35.0) 12/30/21 05:19 RDW 18.3 % (11.6-16.5) H 12/30/21 05:19 Plt Count 351 X10^3/uL (150.0-450.0) 12/30/21 05:19 Plt Count Comment Adequate (ADEQUATE) 12/30/21 05:19 MPV 6.7 fL (7.4-11.0) L 12/30/21 05:19 Neut % (Auto) 87.3 % (42.0-75.0) H 12/30/21 05:19 Lymph % (Auto) 5.4 % (21.0-51.0) L 12/30/21 05:19 [place] % (Auto) 5.6 % (0.0-13.0) 12/30/21 05:19 Eos % (Auto) 1.0 % (0.9-2.9) 12/30/21 05:19 Baso % (Auto) 0.7 % (0.2-1.0) 12/30/21 05:19 Neut # (Auto) 18.7 x10^3/uL (2.2-4.8) H 12/30/21 05:19 Lymph # (Auto) 1.2 X10^3/uL (1.3-2.9) L 12/30/21 05:19 [place] # (Auto) 1.2 x10^3/uL (0.3-0.8) H 12/30/21 05:19 Eos # (Auto) 0.2 x10^3/uL (0.0-0.2) 12/30/21 05:19 Baso # (Auto) 0.1 X10^3/uL (0.0-0.1) 12/30/21 05:19 Absolute Nucleated RBC 0.1 /100WBC 12/30/21 05:19 Total Counted 100 12/30/21 05:19 Neutrophils % (Manual) 89 % (39-76) H 12/30/21 05:19 Band Neutrophils % 1 % (0-10) 12/29/21 05:04 Lymphocytes % (Manual) 7 % (13-43) L 12/30/21 05:19 Monocytes % (Manual) 3 % (4-9) L 12/30/21 05:19 Eosinophils % (Manual) 1 % (0-6) 12/30/21 05:19 Metamyelocytes % 1 12/28/21 18:32 Myelocytes % 2 12/28/21 18:32 Atypical Lymphocytes Rare A 12/28/21 18:32 Plt Morphology Comment Normal (NORMAL) 12/30/21 05:19 RBC Morphology Abnormal (NORMAL) A 12/30/21 05:19 Anisocytosis Slight A 12/30/21 05:19 Stomatocytes 1+ A 12/28/21 18:32 Sodium 133 mmol/L (136-145) L 12/30/21 05:19 Corrected Sodium 133 mmol/L (136-145) L 12/30/21 05:19 Potassium 3.2 mmol/L (3.5-5.1) L 12/30/21 05:19 Chloride 98 mmol/L (98-107) 12/30/21 05:19 Carbon Dioxide 29.5 mmol/L (21-32) 12/30/21 05:19 BUN 15 mg/dL (7-18) 12/30/21 05:19 Creatinine 1.10 mg/dL (0.55-1.02) H 12/30/21 05:19 Est GFR (MDRD) Af Amer > 60 (>60) 12/30/21 05:19 Est GFR (MDRD) Non-Af 52 (>60) L 12/30/21 05:19 Glucose 113 mg/dL (65-99) H 12/30/21 05:19 POC Glucose (mg/dL) 155 mg/dL (65-99) H 12/29/21 16:45 Lactic Acid 0.6 mmol/L (0.4-2.0) 12/30/21 10:03 Calcium 7.9 mg/dL (8.5-10.1) L 12/30/21 05:19 Corrected Calcium 9.4 mg/dL (8.5-10.1) 12/30/21 05:19 Magnesium 2.3 mg/dL (1.7-2.9) 12/30/21 05:19 Total Bilirubin 0.20 mg/dL (0.2-1.0) 12/30/21 05:19 AST 40 Units/L (15-37) H 12/30/21 05:19 ALT 43 Units/L (12-78) 12/30/21 05:19 Alkaline Phosphatase 196 Units/L (46-116) H 12/30/21 05:19 Creatine Kinase 26 Units/L (26-192) 12/29/21 07:45 Troponin I High Sens 24.0 ng/L (4.0-60.0) 12/29/21 07:45 Total Protein 6.5 g/dL (6.4-8.2) 12/30/21 05:19 Albumin 2.1 g/dL (3.4-5.0) L 12/30/21 05:19 Globulin 4.4 g/dL (2.5-4.5) 12/30/21 05:19 Albumin/Globulin Ratio 0.5 Ratio (1.1-2.1) L 12/30/21 05:19 Specimen Type Clean catch urine 12/28/21 18:45 Urine Color Pale yellow (YELLOW) 12/28/21 18:45 Urine Appearance Slightly hazy (CLEAR) 12/28/21 18:45 Urine pH 6.0 (5.0 - 8.0) 12/28/21 18:45 Ur Specific [place] 1.010 (1.000-1.030) 12/28/21 18:45 Urine Protein Negative (NEGATIVE) 12/28/21 18:45 Urine Glucose (UA) Negative (NEGATIVE) 12/28/21 18:45 Urine Ketones Negative (NEGATIVE) 12/28/21 18:45 Urine Blood 1+ (NEGATIVE) 12/28/21 18:45 Urine Nitrite Negative (NEGATIVE) 12/28/21 18:45 Urine Bilirubin Negative (NEGATIVE) 12/28/21 18:45 Urine Urobilinogen Normal (NORMAL) 12/28/21 18:45 Ur Leukocyte Esterase 3+ (NEGATIVE) 12/28/21 18:45 Urine RBC 3-5 /HPF (0-3) A 12/28/21 18:45 Urine WBC 10-20 /HPF (0-5) A 12/28/21 18:45 Ur Squamous Epith Cells Few /HPF (NEGATIVE) 12/28/21 18:45 Urine Bacteria 1+ /HPF (NEGATIVE) 12/28/21 18:45 Ur Culture Indicated? Yes/culture set up 12/28/21 18:45 SARS-CoV-2 (PCR) Negative (NEGATIVE) 12/28/21 17:32 Monoscreen Negative (NEGATIVE) 12/28/21 18:32 Influenza Type A (PCR) Negative (NEGATIVE) 12/28/21 17:32 Influenza Type B (PCR) Negative (NEGATIVE) 12/28/21 17:32 RSV (PCR) Negative (NEGATIVE) 12/28/21 17:32 S. pyogenes (TEM-PCR) Not detected (NOT DETECT) 12/29/21 11:38 - Plan (1) Bronchitis Status: Acute Plan: NORMAL SALINE AT 125 ML/HR, FORTAZ 1G IV Q8H, LEVAQUIN 500MG IV DAILY, THE POTASSIUM AND MAGNESIUM PROTOCOLS, LOVENOX 40MG SC DAILY, TORADOL 30MG IV Q6H PRN, ZOFRAN 4MG IV Q6H PRN, CHLORASEPTIC SPRAY Q2H PRN, AND HER HOME MEDICATIONS WERE RESUMED (2) UTI (urinary tract infection) Status: Acute Qualifiers: Urinary tract infection type: acute cystitis Hematuria presence: with hematuria Qualified Code(s): N30.01 - Acute cystitis with hematuria (3) Generalized weakness Status: Acute (4) Hypomagnesemia Status: Acute (5) HTN (hypertension) Status: Chronic Qualifiers: Hypertension type: primary hypertension Plan: CONTINUE HOME MEDS
[2021-12-30] MEDS: NEURONTIN CAP 300 MG PO SCH ×3 (12:38→21:14)
[2021-12-30] MEDS: HEMOCYTE-PLUS PO SCH (12:38)
[2021-12-30] MEDS: PROTONIX TAB 40 MG PO SCH ×2 (12:39→20:26)
[2021-12-30] MEDS: VITAMIN B-12 PO SCH (12:39)
[2021-12-30] MEDS: GLUCOTROL XL 24-HR PO SCH (12:40)
[2021-12-30] MEDS: LEVAQUIN PREMIX IV 500 MG 500 MG/100 ML BAG IV SCH (12:40)
[2021-12-30] MEDS: MAXZIDE 37.5/25 MG PO SCH (12:40)
[2021-12-30] MEDS: FORTAZ or TAZICEF VIAL INJ 1 G in NS 100 ML IV 100 ML IV SCH ×3 (12:43→21:14)
[2021-12-30] MEDS: NORCO 10/325 TAB PO PRN ×2 (12:48→20:51)
[2021-12-30] MEDS ORDERED: NovoLIN R (or HumuLIN R) SC PRN (13:59)
[2021-12-30] MEDS: OLMESARTAN 5 MG PO SCH (20:27)
[2021-12-30] MEDS: AMBIEN PO SCH (20:27)
[2021-12-31] MEDS: NEURONTIN CAP 300 MG PO SCH ×3 (05:50→21:25)
[2021-12-31] MEDS: FORTAZ or TAZICEF VIAL INJ 1 G in NS 100 ML IV 100 ML IV SCH ×3 (05:50→21:24)
--- NOTE | 2021-12-31 06:11 | RAD ---
HISTORYBronchitis, shortness of breathSTUDYChest AP [id number]/06/2022FINDINGSHear t is upper limits normal in size. No congestive heart failure is noted. Carol are normal. Aorta is calcified. Lung abreu are clear. No pleural effusions are identified. Bony thorax is unremarkable.IMPRESSIONNo significant abnormality identifiedElectronically signed by: GLORIA GUERRERO (Dec 31, 2021 06:09:49)
[2021-12-31 06:16] LABS: BASOPHILS # (AUTO) 0.2 X10^3/uL (0.0-0.1); EOSINOPHILS # (AUTO) 0.4 x10^3/uL (0.0-0.2); EOSINOPHILS % (AUTO) 2.1 % (0.9-2.9); HEMATOCRIT 24.6 % (36.0-47.0); HEMOGLOBIN 8.1 g/dL (12.0-16.0); LYMPHOCYTES # (AUTO) 1.5 X10^3/uL (1.3-2.9); LYMPHOCYTES % (AUTO) 8.3 % (21.0-51.0); MEAN CORPUSCULAR HEMOGLOBIN 29.4 pg (27.0-34.0); MEAN CORPUSCULAR HGB CONC 33.2 g/dL (33.0-35.0); MEAN CORPUSCULAR VOLUME 88.5 fL (80.0-100.0); MEAN PLATELET VOLUME 6.3 fL (7.4-11.0); MONOCYTES # (AUTO) 1.1 x10^3/uL (0.3-0.8); MONOCYTES % (AUTO) 6.3 % (0.0-13.0); NEUTROPHILS # (AUTO) 14.5 x10^3/uL (2.2-4.8); NEUTROPHILS % (AUTO) 82.3 % (42.0-75.0); RED BLOOD COUNT 2.77 X10^6/uL (3.5-5.4); RED CELL DISTRIBUTION WIDTH 18.6 % (11.6-16.5); WHITE BLOOD COUNT 17.6 X10^3/uL (3.6-10.0)
[2021-12-31 06:41] LABS: ALANINE AMINOTRANSFERASE 46 Units/L (12-78); ALBUMIN 2.2 g/dL (3.4-5.0); ALKALINE PHOSPHATASE 216 Units/L (46-116); ASPARTATE AMINO TRANSFERASE 32 Units/L (15-37); BLOOD UREA NITROGEN 10 mg/dL (7-18); CALCIUM 8.2 mg/dL (8.5-10.1); CARBON DIOXIDE 29.8 mmol/L (21-32); CHLORIDE 102 mmol/L (98-107); COR CA(FOR HYPOALB) 9.6 mg/dL (8.5-10.1); COR NA(FOR HYPERGLY) 136 mmol/L (136-145); CREATININE 1.12 mg/dL (0.55-1.02); SODIUM 136 mmol/L (136-145); TOTAL PROTEIN 6.9 g/dL (6.4-8.2); eGFR NON BLACK RACES 51 (>60)
[2021-12-31] MEDS: LEVAQUIN PREMIX IV 500 MG 500 MG/100 ML BAG IV SCH (10:33)
[2021-12-31] MEDS: MAXZIDE 37.5/25 MG PO SCH (10:33)
[2021-12-31] MEDS: LOVENOX INJ 40 MG SYR SC SCH (10:33)
[2021-12-31] MEDS: PROTONIX TAB 40 MG PO SCH ×2 (10:33→20:26)
[2021-12-31] MEDS: HEMOCYTE-PLUS PO SCH (10:33)
[2021-12-31] MEDS: VITAMIN B-12 PO SCH (10:33)
[2021-12-31] MEDS: GLUCOTROL XL 24-HR PO SCH (10:33)
[2021-12-31] MEDS: MILK OF MAGNESIA PO SCH ×2 (10:33→20:24)
[2021-12-31] MEDS: NYSTATIN SUSP PO SCH ×5 (10:33→20:24)
[2021-12-31] MEDS: MAGIC MOUTHWASH (Orig. Formula) MT SCH ×4 (10:33→20:25)
[2021-12-31] MEDS: NORCO 10/325 TAB PO PRN (10:38)
[2021-12-31] MEDS: NS 1,000 ML IV 1,000 ML IV SCH ×3 (14:24→22:27)
[2021-12-31 18:30] LABS: HEMATOCRIT 25.5 % (36.0-47.0); HEMOGLOBIN 8.3 g/dL (12.0-16.0)
[2021-12-31] MEDS: AMBIEN PO SCH (20:25)
[2021-12-31] MEDS: OLMESARTAN 5 MG PO SCH (20:28)
[2021-12-31] MEDS: TORADOL 30 MG VIAL IVP PRN (21:25)
[2022-01-01] MEDS: NS 1,000 ML IV 1,000 ML IV SCH ×3 (01:29→22:00)
[2022-01-01] MEDS: FORTAZ or TAZICEF VIAL INJ 1 G in NS 100 ML IV 100 ML IV SCH ×3 (05:09→21:08)
[2022-01-01] MEDS: NEURONTIN CAP 300 MG PO SCH ×3 (05:10→21:07)
[2022-01-01] MEDS: TORADOL 30 MG VIAL IVP PRN ×2 (05:17→21:50)
[2022-01-01 06:19] LABS: BASOPHILS # (AUTO) 0.1 X10^3/uL (0.0-0.1); BASOPHILS % (AUTO) 0.6 % (0.2-1.0); EOSINOPHILS # (AUTO) 0.2 x10^3/uL (0.0-0.2); EOSINOPHILS % (AUTO) 1.6 % (0.9-2.9); HEMATOCRIT 23.4 % (36.0-47.0); HEMOGLOBIN 7.7 g/dL (12.0-16.0); LYMPHOCYTES # (AUTO) 1.6 X10^3/uL (1.3-2.9); MEAN CORPUSCULAR HEMOGLOBIN 29.4 pg (27.0-34.0); MEAN CORPUSCULAR HGB CONC 32.9 g/dL (33.0-35.0); MEAN CORPUSCULAR VOLUME 89.4 fL (80.0-100.0); MEAN PLATELET VOLUME 6.3 fL (7.4-11.0); MONOCYTES # (AUTO) 1.1 x10^3/uL (0.3-0.8); MONOCYTES % (AUTO) 7.6 % (0.0-13.0); NEUTROPHILS # (AUTO) 11.3 x10^3/uL (2.2-4.8); NEUTROPHILS % (AUTO) 79.2 % (42.0-75.0); RED BLOOD COUNT 2.61 X10^6/uL (3.5-5.4); RED CELL DISTRIBUTION WIDTH 18.4 % (11.6-16.5); WHITE BLOOD COUNT 14.2 X10^3/uL (3.6-10.0)
[2022-01-01 06:21] LABS: ALANINE AMINOTRANSFERASE 42 Units/L (12-78); ALBUMIN 2.1 g/dL (3.4-5.0); ALKALINE PHOSPHATASE 197 Units/L (46-116); ASPARTATE AMINO TRANSFERASE 24 Units/L (15-37); BLOOD UREA NITROGEN 11 mg/dL (7-18); CALCIUM 7.8 mg/dL (8.5-10.1); CARBON DIOXIDE 26.8 mmol/L (21-32); CHLORIDE 103 mmol/L (98-107); COR CA(FOR HYPOALB) 9.3 mg/dL (8.5-10.1); CREATININE 1.18 mg/dL (0.55-1.02); SODIUM 136 mmol/L (136-145); TOTAL PROTEIN 6.4 g/dL (6.4-8.2); eGFR NON BLACK RACES 48 (>60)
--- NOTE | 2022-01-01 06:39 | RAD ---
HISTORYFollow-up bronchitis, shortness of breathSTUDYChest AP [id number]/07/2022FINDINGSHear t size is normal. Carol are normal. Lung abreu are clear. No pleural effusions are identified. Bony thorax is unremarkable.IMPRESSIONNo significant abnormality identifiedElectronically signed by: GLORIA GUERRERO (Jan 01, 2022 06:38:04)
--- NOTE | 2022-01-01 12:36 | PCM.PROG ---
Progress Note - Progress Note for Day of Date of Exam: 12/31/21 - Subjective Subjective: WAS ADMITTED ON 12/28/21 FOR TREATMENT OF ACUTE BRONCHITIS, UTI, GENERALIZED WEAKNESS, HYPOMAGNESEMIA, AND HTN. TODAY, SHE IS ALERT AND ORIENTED, LYING IN BED ON MORNING ROUNDS SHE CONTINUES WITH COMPLAINTS OF GENERALIZED WEAKNESS AND A NON-PRODUCTIVE COUGH WITH OCCASIONAL SHORTNESS OF BREATH. ON EXAMINATION, THERE IS SOME ERYTHEMA AND WHITE PATCHES TO THE OROPHARYNX. THERE ARE ALSO WHITE PATCHES TO TONGUE. HEART IS REGULAR IN RATE AND RHYTHM. BILATERAL LUNGS ARE NOTED WITH DIMINISHED LUNG SOUNDS THROUGHOUT. ABDOMEN IS ROUND, SOFT, AND NON-TENDER WITH NORMAL BOWEL SOUNDS NOTED IN ALL QUADRANTS. NO UPPER OR LOWER EXTREMITY EDEMA NOTED. HER VITALS THIS MORNING ARE: 98.7-99-20-97%-139/70. LABS WERE OBTAINED. WBC 17.6, RBC 2.77, HGB 8.1, HCT 24.6, SODIUM 136, POTASSIUM 3.9, CHLORIDE 102, BUN 10, CREATININE 1.12, GLUCOSE 111, CALCIUM 8.2, TOTAL BILI 0.20, AST 32, ALT 46, ALK PHOS 216, TOTAL PROTEIN 6.9, ALBUMIN 2.2. BLOOD AND URINE CULTURES ARE PENDING. CHEST XRAY WAS REPEATED THIS MORNING AND REVEALED: No significant abnormality identified. SHE IS CURRENTLY RECEIVING NORMAL SALINE AT 125 ML/HR, FORTAZ 1G IV Q8H, LEVAQUIN 500MG IV DAILY, THE POTASSIUM AND MAGNESIUM PROTOCOLS, LOVENOX 40MG SC DAILY, TORADOL 30MG IV Q6H PRN, ZOFRAN 4MG IV Q6H PRN, CHLORASEPTIC SPRAY Q2H PRN, AND HER HOME MEDICATIONS WERE RESUMED. TODAY, WE WILL ADD MAGIC MOUTHWASH QID AND NYSTATIN SWISH AND SWALLOW QID. OTHERWISE, WE WILL FOLLOW-UP WITH AM LABS AND CONTINUE TO MONITOR. TIME SPENT ON CLINICAL ASSESSMENT, REVIWING LABS AND IMAGING, DECISION MAKING, AND DOCUMENTATION GREATER THAN 45 MINUTES. - Past Medical Family Social History Past Med/Fam/Surg Hx: No changes since H&P Allergies: Allergies No Known Drug Allergies Allergy (Verified 04/29/20 20:19) - Review of Systems ROS: No change since H&P - Vital Signs and I&O's Vital Signs: Temperature 97.7 F Pulse Rate [Left Brachial] 84 Pulse Rate 112 Respiratory Rate 19 Blood Pressure [Left Arm] 134/63 Blood Pressure 126/61 O2 Sat by Pulse Oximetry 97 Intake and Output: Intake & Output 12/30/21 12/31/21 01/01/22 01/02/22 11:59 11:59 11:59 11:59 Intake Total 3896 / 3896 4034 / 4034 3442 / 3442 Balance 3896 / 3896 4034 / 4034 3442 / 3442 - Physical Exam Oriented: Normal Eyes: Normal Ear: Normal Nose: Normal Throat: Red Respiratory: Generalized, Diminished Cardiovascular: Normal Auscultation: Bowel Sounds: Normal Tenderness: Normal Skin: Normal Musculoskeletal: Normal Psychiatric: Normal Mood Description: Calm, Appropriate Affect: Normal Speech Pattern: Clear, Appropriate - Laboratory and Diagnostics Result Diagrams: 01/01/22 05:27 01/01/22 05:27 Labs: 12/30/21 22:15 Urine,Clean Catch Urine Culture - Preliminary 12/28/21 18:45 Urine,Clean Catch Urine Culture - Final Laboratory WBC 14.2 X10^3/uL (3.6-10.0) H 01/01/22 05:27 RBC 2.61 X10^6/uL (3.5-5.4) L 01/01/22 05:27 Hgb 7.7 g/dL (12.0-16.0) L 01/01/22 05:27 Hct 23.4 % (36.0-47.0) L 01/01/22 05:27 MCV 89.4 fL (80.0-100.0) 01/01/22 05:27 MCH 29.4 pg (27.0-34.0) 01/01/22 05:27 MCHC 32.9 g/dL (33.0-35.0) L 01/01/22 05:27 RDW 18.4 % (11.6-16.5) H 01/01/22 05:27 Plt Count 356 X10^3/uL (150.0-450.0) 01/01/22 05:27 Plt Count Comment Adequate (ADEQUATE) 12/30/21 05:19 MPV 6.3 fL (7.4-11.0) L 01/01/22 05:27 Neut % (Auto) 79.2 % (42.0-75.0) H 01/01/22 05:27 Lymph % (Auto) 11.0 % (21.0-51.0) L 01/01/22 05:27 [place] % (Auto) 7.6 % (0.0-13.0) 01/01/22 05:27 Eos % (Auto) 1.6 % (0.9-2.9) 01/01/22 05:27 Baso % (Auto) 0.6 % (0.2-1.0) 01/01/22 05:27 Neut # (Auto) 11.3 x10^3/uL (2.2-4.8) H 01/01/22 05:27 Lymph # (Auto) 1.6 X10^3/uL (1.3-2.9) 01/01/22 05:27 [place] # (Auto) 1.1 x10^3/uL (0.3-0.8) H 01/01/22 05:27 Eos # (Auto) 0.2 x10^3/uL (0.0-0.2) 01/01/22 05:27 Baso # (Auto) 0.1 X10^3/uL (0.0-0.1) 01/01/22 05:27 Absolute Nucleated RBC 0.0 /100WBC 01/01/22 05:27 Total Counted 100 12/30/21 05:19 Neutrophils % (Manual) 89 % (39-76) H 12/30/21 05:19 Band Neutrophils % 1 % (0-10) 12/29/21 05:04 Lymphocytes % (Manual) 7 % (13-43) L 12/30/21 05:19 Monocytes % (Manual) 3 % (4-9) L 12/30/21 05:19 Eosinophils % (Manual) 1 % (0-6) 12/30/21 05:19 Metamyelocytes % 1 12/28/21 18:32 Myelocytes % 2 12/28/21 18:32 Atypical Lymphocytes Rare A 12/28/21 18:32 Plt Morphology Comment Normal (NORMAL) 12/30/21 05:19 RBC Morphology Abnormal (NORMAL) A 12/30/21 05:19 Anisocytosis Slight A 12/30/21 05:19 Stomatocytes 1+ A 12/28/21 18:32 Sodium 136 mmol/L (136-145) 01/01/22 05:27 Corrected Sodium TNP 01/01/22 05:27 Potassium 3.8 mmol/L (3.5-5.1) 01/01/22 05:27 Chloride 103 mmol/L (98-107) 01/01/22 05:27 Carbon Dioxide 26.8 mmol/L (21-32) 01/01/22 05:27 BUN 11 mg/dL (7-18) 01/01/22 05:27 Creatinine 1.18 mg/dL (0.55-1.02) H 01/01/22 05:27 Est GFR (MDRD) Af Amer 58 (>60) L 01/01/22 05:27 Est GFR (MDRD) Non-Af 48 (>60) L 01/01/22 05:27 Glucose 100 mg/dL (65-99) H 01/01/22 05:27 POC Glucose (mg/dL) 94 mg/dL (65-99) 01/01/22 05:31 Lactic Acid 0.6 mmol/L (0.4-2.0) 12/30/21 10:03 Calcium 7.8 mg/dL (8.5-10.1) L 01/01/22 05:27 Corrected Calcium 9.3 mg/dL (8.5-10.1) 01/01/22 05:27 Magnesium 2.3 mg/dL (1.7-2.9) 12/30/21 05:19 Total Bilirubin 0.20 mg/dL (0.2-1.0) 01/01/22 05:27 AST 24 Units/L (15-37) 01/01/22 05:27 ALT 42 Units/L (12-78) 01/01/22 05:27 Alkaline Phosphatase 197 Units/L (46-116) H 01/01/22 05:27 Creatine Kinase 26 Units/L (26-192) 12/29/21 07:45 Troponin I High Sens 24.0 ng/L (4.0-60.0) 12/29/21 07:45 Total Protein 6.4 g/dL (6.4-8.2) 01/01/22 05:27 Albumin 2.1 g/dL (3.4-5.0) L 01/01/22 05:27 Globulin 4.3 g/dL (2.5-4.5) 01/01/22 05:27 Albumin/Globulin Ratio 0.5 Ratio (1.1-2.1) L 01/01/22 05:27 Specimen Type Clean catch urine 12/28/21 18:45 Urine Color Pale yellow (YELLOW) 12/28/21 18:45 Urine Appearance Slightly hazy (CLEAR) 12/28/21 18:45 Urine pH 6.0 (5.0 - 8.0) 12/28/21 18:45 Ur Specific [place] 1.010 (1.000-1.030) 12/28/21 18:45 Urine Protein Negative (NEGATIVE) 12/28/21 18:45 Urine Glucose (UA) Negative (NEGATIVE) 12/28/21 18:45 Urine Ketones Negative (NEGATIVE) 12/28/21 18:45 Urine Blood 1+ (NEGATIVE) 12/28/21 18:45 Urine Nitrite Negative (NEGATIVE) 12/28/21 18:45 Urine Bilirubin Negative (NEGATIVE) 12/28/21 18:45 Urine Urobilinogen Normal (NORMAL) 12/28/21 18:45 Ur Leukocyte Esterase 3+ (NEGATIVE) 12/28/21 18:45 Urine RBC 3-5 /HPF (0-3) A 12/28/21 18:45 Urine WBC 10-20 /HPF (0-5) A 12/28/21 18:45 Ur Squamous Epith Cells Few /HPF (NEGATIVE) 12/28/21 18:45 Urine Bacteria 1+ /HPF (NEGATIVE) 12/28/21 18:45 Ur Culture Indicated? Yes/culture set up 12/28/21 18:45 SARS-CoV-2 (PCR) Negative (NEGATIVE) 12/28/21 17:32 Monoscreen Negative (NEGATIVE) 12/28/21 18:32 Influenza Type A (PCR) Negative (NEGATIVE) 12/28/21 17:32 Influenza Type B (PCR) Negative (NEGATIVE) 12/28/21 17:32 RSV (PCR) Negative (NEGATIVE) 12/28/21 17:32 S. pyogenes (TEM-PCR) Not detected (NOT DETECT) 12/29/21 11:38 - Plan (1) Bronchitis Status: Acute Plan: NORMAL SALINE AT 125 ML/HR, FORTAZ 1G IV Q8H, LEVAQUIN 500MG IV DAILY, NYSTATIN SWISH AND SWALLOW QID, MAGIC MOUTHWASH QID, THE POTASSIUM AND MAGNESIUM PROTOCOLS, LOVENOX 40MG SC DAILY, TORADOL 30MG IV Q6H PRN, ZOFRAN 4MG IV Q6H PRN, CHLORASEPTIC SPRAY Q2H PRN, AND HER HOME MEDICATIONS WERE RESUMED (2) UTI (urinary tract infection) Status: Acute Qualifiers: Urinary tract infection type: acute cystitis Hematuria presence: with hematuria Qualified Code(s): N30.01 - Acute cystitis with hematuria (3) Generalized weakness Status: Acute (4) Hypomagnesemia Status: Acute (5) HTN (hypertension) Status: Chronic Qualifiers: Hypertension type: primary hypertension Plan: CONTINUE HOME MEDS
--- NOTE | 2022-01-01 12:42 | PCM.PROG ---
Progress Note - Progress Note for Day of Date of Exam: 01/01/22 - Subjective Subjective: WAS ADMITTED ON 12/28/21 FOR TREATMENT OF ACUTE BRONCHITIS, UTI, GENERALIZED WEAKNESS, HYPOMAGNESEMIA, AND HTN. TODAY, SHE IS ALERT AND ORIENTED, LYING IN BED ON MORNING ROUNDS. SHE CONTINUES WITH COMPLAINTS OF GENERALIZED WEAKNESS AND SORE THROAT AND MOUTH. ON EXAMINATION, THERE IS SOME ERYTHEMA AND WHITE PATCHES TO THE OROPHARYNX. THERE ARE ALSO WHITE PATCHES TO TONGUE, SLIGHTLY IMPROVED SINCE YESTERDAY. ON EXAMINATION, HEART IS REGULAR IN RATE AND RHYTHM. BILATERAL LUNGS ARE NOTED WITH DIMINISHED LUNG SOUNDS THROUGHOUT. ABDOMEN IS ROUND, SOFT, AND NON-TENDER WITH NORMAL BOWEL SOUNDS NOTED IN ALL QUADRANTS. NO UPPER OR LOWER EXTREMITY EDEMA NOTED. HER VITALS THIS MORNING ARE: 97.7-84-18-97%-134/63. LABS WERE OBTAINED. WBC 14.2, RBC 2.61, HGB 7.7, HCT 23.4, SODIUM 136, POTASSIUM 3.8, CHLORIDE 103, BUN 11, CREATININE 1.18, GLUCOSE 100, CALCIUM 7.8, AST 24, ALT 42, ALK PHOS 197, TOTAL PROTEIN 6.4, ALBUMIN 2.1. BLOOD AND URINE CULTURES ARE PENDING. CHEST XRAY WAS REPEATED THIS MORNING AND REVEALED: No significant abnormality identified. SHE IS CURRENTLY RECEIVING NORMAL SALINE AT 125 ML/HR, FORTAZ 1G IV Q8H, LEVAQUIN 500MG IV DAILY, MAGIC MOUTHWASH QID, NYSTATIN SWISH AND SWALLOW QID, THE POTASSIUM AND MAGNESIUM PROTOCOLS, LOVENOX 40MG SC DAILY, TORADOL 30MG IV Q6H PRN, ZOFRAN 4MG IV Q6H PRN, CHLORASEPTIC SPRAY Q2H PRN, AND HER HOME MEDICATIONS WERE RESUMED. WE WILL CONTINUE WITH CURRENT PLAN OF CARE TODAY. OTHERWISE, WE WILL FOLLOW-UP WITH AM LABS AND CONTINUE TO MONITOR. TIME SPENT ON CLINICAL ASSESSMENT, REVIWING LABS AND IMAGING, DECISION MAKING, AND DOCUMENTATION GREATER THAN 45 MINUTES. - Past Medical Family Social History Past Med/Fam/Surg Hx: No changes since H&P Allergies: Allergies No Known Drug Allergies Allergy (Verified 04/29/20 20:19) - Review of Systems ROS: No change since H&P - Vital Signs and I&O's Vital Signs: Temperature 97.7 F Pulse Rate [Left Brachial] 84 Pulse Rate 112 Respiratory Rate 19 Blood Pressure [Left Arm] 134/63 Blood Pressure 126/61 O2 Sat by Pulse Oximetry 97 Intake and Output: Intake & Output 12/30/21 12/31/21 01/01/22 01/02/22 11:59 11:59 11:59 11:59 Intake Total 3896 / 3896 4034 / 4034 3442 / 3442 Balance 3896 / 3896 4034 / 4034 3442 / 3442 - Physical Exam Oriented: Normal Eyes: Normal Ear: Normal Nose: Normal Throat: Red Respiratory: Generalized, Diminished Cardiovascular: Normal Auscultation: Bowel Sounds: Normal Palpation: Normal Tenderness: Normal Skin: Normal Musculoskeletal: Normal Psychiatric: Normal Mood Description: Calm, Appropriate Affect: Normal Speech Pattern: Clear, Appropriate - Laboratory and Diagnostics Result Diagrams: 01/01/22 05:27 01/01/22 05:27 Labs: 12/30/21 22:15 Urine,Clean Catch Urine Culture - Preliminary 12/28/21 18:45 Urine,Clean Catch Urine Culture - Final Laboratory WBC 14.2 X10^3/uL (3.6-10.0) H 01/01/22 05:27 RBC 2.61 X10^6/uL (3.5-5.4) L 01/01/22 05:27 Hgb 7.7 g/dL (12.0-16.0) L 01/01/22 05:27 Hct 23.4 % (36.0-47.0) L 01/01/22 05:27 MCV 89.4 fL (80.0-100.0) 01/01/22 05:27 MCH 29.4 pg (27.0-34.0) 01/01/22 05:27 MCHC 32.9 g/dL (33.0-35.0) L 01/01/22 05:27 RDW 18.4 % (11.6-16.5) H 01/01/22 05:27 Plt Count 356 X10^3/uL (150.0-450.0) 01/01/22 05:27 Plt Count Comment Adequate (ADEQUATE) 12/30/21 05:19 MPV 6.3 fL (7.4-11.0) L 01/01/22 05:27 Neut % (Auto) 79.2 % (42.0-75.0) H 01/01/22 05:27 Lymph % (Auto) 11.0 % (21.0-51.0) L 01/01/22 05:27 [place] % (Auto) 7.6 % (0.0-13.0) 01/01/22 05:27 Eos % (Auto) 1.6 % (0.9-2.9) 01/01/22 05:27 Baso % (Auto) 0.6 % (0.2-1.0) 01/01/22 05:27 Neut # (Auto) 11.3 x10^3/uL (2.2-4.8) H 01/01/22 05:27 Lymph # (Auto) 1.6 X10^3/uL (1.3-2.9) 01/01/22 05:27 [place] # (Auto) 1.1 x10^3/uL (0.3-0.8) H 01/01/22 05:27 Eos # (Auto) 0.2 x10^3/uL (0.0-0.2) 01/01/22 05:27 Baso # (Auto) 0.1 X10^3/uL (0.0-0.1) 01/01/22 05:27 Absolute Nucleated RBC 0.0 /100WBC 01/01/22 05:27 Total Counted 100 12/30/21 05:19 Neutrophils % (Manual) 89 % (39-76) H 12/30/21 05:19 Band Neutrophils % 1 % (0-10) 12/29/21 05:04 Lymphocytes % (Manual) 7 % (13-43) L 12/30/21 05:19 Monocytes % (Manual) 3 % (4-9) L 12/30/21 05:19 Eosinophils % (Manual) 1 % (0-6) 12/30/21 05:19 Metamyelocytes % 1 12/28/21 18:32 Myelocytes % 2 12/28/21 18:32 Atypical Lymphocytes Rare A 12/28/21 18:32 Plt Morphology Comment Normal (NORMAL) 12/30/21 05:19 RBC Morphology Abnormal (NORMAL) A 12/30/21 05:19 Anisocytosis Slight A 12/30/21 05:19 Stomatocytes 1+ A 12/28/21 18:32 Sodium 136 mmol/L (136-145) 01/01/22 05:27 Corrected Sodium TNP 01/01/22 05:27 Potassium 3.8 mmol/L (3.5-5.1) 01/01/22 05:27 Chloride 103 mmol/L (98-107) 01/01/22 05:27 Carbon Dioxide 26.8 mmol/L (21-32) 01/01/22 05:27 BUN 11 mg/dL (7-18) 01/01/22 05:27 Creatinine 1.18 mg/dL (0.55-1.02) H 01/01/22 05:27 Est GFR (MDRD) Af Amer 58 (>60) L 01/01/22 05:27 Est GFR (MDRD) Non-Af 48 (>60) L 01/01/22 05:27 Glucose 100 mg/dL (65-99) H 01/01/22 05:27 POC Glucose (mg/dL) 94 mg/dL (65-99) 01/01/22 05:31 Lactic Acid 0.6 mmol/L (0.4-2.0) 12/30/21 10:03 Calcium 7.8 mg/dL (8.5-10.1) L 01/01/22 05:27 Corrected Calcium 9.3 mg/dL (8.5-10.1) 01/01/22 05:27 Magnesium 2.3 mg/dL (1.7-2.9) 12/30/21 05:19 Total Bilirubin 0.20 mg/dL (0.2-1.0) 01/01/22 05:27 AST 24 Units/L (15-37) 01/01/22 05:27 ALT 42 Units/L (12-78) 01/01/22 05:27 Alkaline Phosphatase 197 Units/L (46-116) H 01/01/22 05:27 Creatine Kinase 26 Units/L (26-192) 12/29/21 07:45 Troponin I High Sens 24.0 ng/L (4.0-60.0) 12/29/21 07:45 Total Protein 6.4 g/dL (6.4-8.2) 01/01/22 05:27 Albumin 2.1 g/dL (3.4-5.0) L 01/01/22 05:27 Globulin 4.3 g/dL (2.5-4.5) 01/01/22 05:27 Albumin/Globulin Ratio 0.5 Ratio (1.1-2.1) L 01/01/22 05:27 Specimen Type Clean catch urine 12/28/21 18:45 Urine Color Pale yellow (YELLOW) 12/28/21 18:45 Urine Appearance Slightly hazy (CLEAR) 12/28/21 18:45 Urine pH 6.0 (5.0 - 8.0) 12/28/21 18:45 Ur Specific [place] 1.010 (1.000-1.030) 12/28/21 18:45 Urine Protein Negative (NEGATIVE) 12/28/21 18:45 Urine Glucose (UA) Negative (NEGATIVE) 12/28/21 18:45 Urine Ketones Negative (NEGATIVE) 12/28/21 18:45 Urine Blood 1+ (NEGATIVE) 12/28/21 18:45 Urine Nitrite Negative (NEGATIVE) 12/28/21 18:45 Urine Bilirubin Negative (NEGATIVE) 12/28/21 18:45 Urine Urobilinogen Normal (NORMAL) 12/28/21 18:45 Ur Leukocyte Esterase 3+ (NEGATIVE) 12/28/21 18:45 Urine RBC 3-5 /HPF (0-3) A 12/28/21 18:45 Urine WBC 10-20 /HPF (0-5) A 12/28/21 18:45 Ur Squamous Epith Cells Few /HPF (NEGATIVE) 12/28/21 18:45 Urine Bacteria 1+ /HPF (NEGATIVE) 12/28/21 18:45 Ur Culture Indicated? Yes/culture set up 12/28/21 18:45 SARS-CoV-2 (PCR) Negative (NEGATIVE) 12/28/21 17:32 Monoscreen Negative (NEGATIVE) 12/28/21 18:32 Influenza Type A (PCR) Negative (NEGATIVE) 12/28/21 17:32 Influenza Type B (PCR) Negative (NEGATIVE) 12/28/21 17:32 RSV (PCR) Negative (NEGATIVE) 12/28/21 17:32 S. pyogenes (TEM-PCR) Not detected (NOT DETECT) 12/29/21 11:38 - Plan (1) Bronchitis Status: Acute Plan: NORMAL SALINE AT 125 ML/HR, FORTAZ 1G IV Q8H, LEVAQUIN 500MG IV DAILY, NYSTATIN SWISH AND SWALLOW QID, MAGIC MOUTHWASH QID, THE POTASSIUM AND MAGNESIUM PROTOCOLS, LOVENOX 40MG SC DAILY, TORADOL 30MG IV Q6H PRN, ZOFRAN 4MG IV Q6H PRN, CHLORASEPTIC SPRAY Q2H PRN, AND HER HOME MEDICATIONS WERE RESUMED (2) UTI (urinary tract infection) Status: Acute Qualifiers: Urinary tract infection type: acute cystitis Hematuria presence: with hematuria Qualified Code(s): N30.01 - Acute cystitis with hematuria (3) Generalized weakness Status: Acute (4) Hypomagnesemia Status: Acute (5) HTN (hypertension) Status: Chronic Qualifiers: Hypertension type: primary hypertension Plan: CONTINUE HOME MEDS
[2022-01-01] MEDS: MAGIC MOUTHWASH (Orig. Formula) MT SCH ×3 (14:15→21:00)
[2022-01-01] MEDS: NYSTATIN SUSP PO SCH ×3 (14:15→21:08)
[2022-01-01] MEDS: OLMESARTAN 5 MG PO SCH (20:52)
[2022-01-01] MEDS: AMBIEN PO SCH (21:07)
[2022-01-01] MEDS: PROTONIX TAB 40 MG PO SCH (21:07)
[2022-01-01] MEDS: MILK OF MAGNESIA PO SCH (21:08)
[2022-01-02] MEDS: NS 1,000 ML IV 1,000 ML IV SCH ×4 (03:02→21:20)
[2022-01-02] MEDS: NEURONTIN CAP 300 MG PO SCH ×3 (05:04→21:21)
[2022-01-02] MEDS: FORTAZ or TAZICEF VIAL INJ 1 G in NS 100 ML IV 100 ML IV SCH ×3 (05:04→21:21)
[2022-01-02] MEDS: TORADOL 30 MG VIAL IVP PRN ×3 (05:04→20:26)
--- NOTE | 2022-01-02 06:21 | RAD ---
HISTORYShortness of breathSTUDYChest AP [id number]/2022FINDINGSHear t size is normal. Carol are normal. Aorta is calcified. Lung abreu are clear. No definite pleural effusions are identified. Bony thorax is unremarkable.IMPRESSIONNo significant abnormality identifiedElectronically signed by: GLORIA GUERRERO (Jan 02, 2022 06:19:27)
[2022-01-02 06:24] LABS: BASOPHILS # (AUTO) 0.1 X10^3/uL (0.0-0.1); BASOPHILS % (AUTO) 0.8 % (0.2-1.0); EOSINOPHILS # (AUTO) 0.3 x10^3/uL (0.0-0.2); EOSINOPHILS % (AUTO) 1.6 % (0.9-2.9); HEMATOCRIT 23.6 % (36.0-47.0); HEMOGLOBIN 7.9 g/dL (12.0-16.0); LYMPHOCYTES # (AUTO) 1.8 X10^3/uL (1.3-2.9); LYMPHOCYTES % (AUTO) 9.3 % (21.0-51.0); MEAN CORPUSCULAR HEMOGLOBIN 29.7 pg (27.0-34.0); MEAN CORPUSCULAR HGB CONC 33.5 g/dL (33.0-35.0); MEAN CORPUSCULAR VOLUME 88.6 fL (80.0-100.0); MEAN PLATELET VOLUME 6.7 fL (7.4-11.0); MONOCYTES # (AUTO) 0.9 x10^3/uL (0.3-0.8); MONOCYTES % (AUTO) 4.9 % (0.0-13.0); NEUTROPHILS % (AUTO) 83.4 % (42.0-75.0); RED BLOOD COUNT 2.66 X10^6/uL (3.5-5.4); RED CELL DISTRIBUTION WIDTH 18.2 % (11.6-16.5); WHITE BLOOD COUNT 19.2 X10^3/uL (3.6-10.0)
[2022-01-02 06:31] LABS: ALBUMIN 2.2 g/dL (3.4-5.0); CARBON DIOXIDE 26.4 mmol/L (21-32); COR CA(FOR HYPOALB) 9.4 mg/dL (8.5-10.1); CREATININE 1.19 mg/dL (0.55-1.02); TOTAL PROTEIN 6.9 g/dL (6.4-8.2)
[2022-01-02] MEDS: PROTONIX TAB 40 MG PO SCH ×2 (09:02→20:26)
[2022-01-02] MEDS: HEMOCYTE-PLUS PO SCH (09:02)
[2022-01-02] MEDS: VITAMIN B-12 PO SCH (09:02)
[2022-01-02] MEDS: GLUCOTROL XL 24-HR PO SCH (09:02)
[2022-01-02] MEDS: LEVAQUIN PREMIX IV 500 MG 500 MG/100 ML BAG IV SCH (09:03)
[2022-01-02] MEDS: NYSTATIN SUSP PO SCH ×4 (09:03→20:24)
[2022-01-02] MEDS: MAXZIDE 37.5/25 MG PO SCH (09:03)
[2022-01-02] MEDS: LOVENOX INJ 40 MG SYR SC SCH (09:03)
[2022-01-02] MEDS: MILK OF MAGNESIA PO SCH ×2 (09:03→20:25)
[2022-01-02] MEDS: MAGIC MOUTHWASH (Orig. Formula) MT SCH ×4 (09:04→20:27)
--- NOTE | 2022-01-02 12:08 | PCM.PROG ---
Progress Note - Progress Note for Day of Date of Exam: 01/02/22 - Subjective Subjective: WAS ADMITTED ON 12/28/21 FOR TREATMENT OF ACUTE BRONCHITIS, UTI, GENERALIZED WEAKNESS, HYPOMAGNESEMIA, AND HTN. TODAY, SHE IS ALERT AND ORIENTED, LYING IN BED ON MORNING ROUNDS. SHE CONTINUES WITH COMPLAINTS OF GENERALIZED WEAKNESS AND SHORTNESS OF BREATH AT TIME. SHE DOES STILL HAVE SOME DISCOMFORT TO MOUTH AND THROAT, BUT SHE REPORTS SLIGHT IMPROVEMENT SINCE YESTERDAY. ON EXAMINATION, THERE CONTINUES TO SOME ERYTHEMA AND WHITE PATCHES TO THE OROPHARYNX. THERE ARE ALSO WHITE PATCHES TO TONGUE, SLIGHTLY IMPROVED SINCE YESTERDAY. ON EXAMINATION, HEART IS REGULAR IN RATE AND RHYTHM. BILATERAL LUNGS ARE NOTED WITH DIMINISHED LUNG SOUNDS THROUGHOUT. ABDOMEN IS ROUND, SOFT, AND NO N-TENDER WITH NORMAL BOWEL SOUNDS NOTED IN ALL QUADRANTS. NO UPPER OR LOWER EXTREMITY EDEMA NOTED. HER VITALS THIS MORNING ARE: 97.9-81-20-97%-147/66. LABS WERE OBTAINED. WBC INCREASED TO 19.2, RBC 2.66, HGB 7.9, HCT 23.6, SODIUM 133, POTASSIUM 4.2, BUN 11, CREATININE 1.19, GLUCOSE 125, CALCIUM 8.0, TOTAL BILI 0.10, AST 18, ALT 37, ALK PHOS 192, TOTAL PROTEIN 6.9, ALBUMIN 2.2. BLOOD AND URINE CULTURES ARE PENDING. CHEST XRAY WAS REPEATED THIS MORNING AND REVEALED: No significant abnormality identified. SHE IS CURRENTLY RECEIVING NORMAL SALINE AT 125 ML/HR, FORTAZ 1G IV Q8H, LEVAQUIN 500MG IV DAILY, MAGIC MOUTHWASH QID, NYSTATIN SWISH AND SWALLOW QID, THE POTASSIUM AND MAGNESIUM PROTOCOLS, LOVENOX 40MG SC DAILY, TORADOL 30MG IV Q6H PRN, ZOFRAN 4MG IV Q6H PRN, CHLORASEPTIC SPRAY Q2H PRN, AND HER HOME MEDICATIONS WERE RESUMED. WE WILL CONTINUE WITH CURRENT PLAN OF CARE TODAY. WE WILL ORDER AN AIT RESPIRATORY PANEL. OTHERWISE, WE WILL FOLLOW-UP WITH AM LABS AND CONTINUE TO MONITOR. TIME SPENT ON CLINICAL ASSESSMENT, REVIWING LABS AND IMAGING, DECISION MAKING, AND DOCUMENTATION GREATER THAN 45 MINUTES. - Past Medical Family Social History Past Med/Fam/Surg Hx: No changes since H&P Allergies: Allergies No Known Drug Allergies Allergy (Verified 04/29/20 20:19) - Review of Systems ROS: No change since H&P - Vital Signs and I&O's Vital Signs: Temperature 97.9 F Pulse Rate [Left Brachial] 81 Pulse Rate 112 Respiratory Rate 20 Blood Pressure [Left Arm] 147/66 Blood Pressure 126/61 O2 Sat by Pulse Oximetry 97 Intake and Output: Intake & Output 12/31/21 01/01/22 01/02/22 01/03/22 11:59 11:59 11:59 11:59 Intake Total 4034 / 4034 3442 / 3442 3924 / 3924 Balance 4034 / 4034 3442 / 3442 3924 / 3924 - Physical Exam Oriented: Normal Eyes: Normal Ear: Normal Nose: Normal Throat: Red Respiratory: Generalized, Diminished Cardiovascular: Normal Auscultation: Bowel Sounds: Normal Palpation: Normal Tenderness: Normal Skin: Normal Musculoskeletal: Normal Psychiatric: Normal Mood Description: Calm, Appropriate Affect: Normal Speech Pattern: Clear, Appropriate - Laboratory and Diagnostics Result Diagrams: 01/02/22 05:08 01/02/22 05:08 Labs: 12/30/21 22:15 Urine,Clean Catch Urine Culture - Final 12/30/21 10:03 Blood Blood Culture - Preliminary 12/30/21 09:56 Blood Blood Culture - Preliminary 12/28/21 18:45 Urine,Clean Catch Urine Culture - Final Laboratory WBC 19.2 X10^3/uL (3.6-10.0) H 01/02/22 05:08 RBC 2.66 X10^6/uL (3.5-5.4) L 01/02/22 05:08 Hgb 7.9 g/dL (12.0-16.0) L 01/02/22 05:08 Hct 23.6 % (36.0-47.0) L 01/02/22 05:08 MCV 88.6 fL (80.0-100.0) 01/02/22 05:08 MCH 29.7 pg (27.0-34.0) 01/02/22 05:08 MCHC 33.5 g/dL (33.0-35.0) 01/02/22 05:08 RDW 18.2 % (11.6-16.5) H 01/02/22 05:08 Plt Count 378 X10^3/uL (150.0-450.0) 01/02/22 05:08 Plt Count Comment Adequate (ADEQUATE) 12/30/21 05:19 MPV 6.7 fL (7.4-11.0) L 01/02/22 05:08 Neut % (Auto) 83.4 % (42.0-75.0) H 01/02/22 05:08 Lymph % (Auto) 9.3 % (21.0-51.0) L 01/02/22 05:08 [place] % (Auto) 4.9 % (0.0-13.0) 01/02/22 05:08 Eos % (Auto) 1.6 % (0.9-2.9) 01/02/22 05:08 Baso % (Auto) 0.8 % (0.2-1.0) 01/02/22 05:08 Neut # (Auto) 16.0 x10^3/uL (2.2-4.8) H 01/02/22 05:08 Lymph # (Auto) 1.8 X10^3/uL (1.3-2.9) 01/02/22 05:08 [place] # (Auto) 0.9 x10^3/uL (0.3-0.8) H 01/02/22 05:08 Eos # (Auto) 0.3 x10^3/uL (0.0-0.2) H 01/02/22 05:08 Baso # (Auto) 0.1 X10^3/uL (0.0-0.1) 01/02/22 05:08 Absolute Nucleated RBC 0.0 /100WBC 01/02/22 05:08 Total Counted 100 12/30/21 05:19 Neutrophils % (Manual) 89 % (39-76) H 12/30/21 05:19 Band Neutrophils % 1 % (0-10) 12/29/21 05:04 Lymphocytes % (Manual) 7 % (13-43) L 12/30/21 05:19 Monocytes % (Manual) 3 % (4-9) L 12/30/21 05:19 Eosinophils % (Manual) 1 % (0-6) 12/30/21 05:19 Metamyelocytes % 1 12/28/21 18:32 Myelocytes % 2 12/28/21 18:32 Atypical Lymphocytes Rare A 12/28/21 18:32 Plt Morphology Comment Normal (NORMAL) 12/30/21 05:19 RBC Morphology Abnormal (NORMAL) A 12/30/21 05:19 Anisocytosis Slight A 12/30/21 05:19 Stomatocytes 1+ A 12/28/21 18:32 Sodium 133 mmol/L (136-145) L 01/02/22 05:08 Corrected Sodium 134 mmol/L (136-145) L 01/02/22 05:08 Potassium 4.2 mmol/L (3.5-5.1) 01/02/22 05:08 Chloride 102 mmol/L (98-107) 01/02/22 05:08 Carbon Dioxide 26.4 mmol/L (21-32) 01/02/22 05:08 BUN 11 mg/dL (7-18) 01/02/22 05:08 Creatinine 1.19 mg/dL (0.55-1.02) H 01/02/22 05:08 Est GFR (MDRD) Af Amer 58 (>60) L 01/02/22 05:08 Est GFR (MDRD) Non-Af 48 (>60) L 01/02/22 05:08 Glucose 125 mg/dL (65-99) H 01/02/22 05:08 POC Glucose (mg/dL) 111 mg/dL (65-99) H 01/02/22 12:01 Lactic Acid 0.6 mmol/L (0.4-2.0) 12/30/21 10:03 Calcium 8.0 mg/dL (8.5-10.1) L 01/02/22 05:08 Corrected Calcium 9.4 mg/dL (8.5-10.1) 01/02/22 05:08 Magnesium 2.3 mg/dL (1.7-2.9) 12/30/21 05:19 Total Bilirubin 0.10 mg/dL (0.2-1.0) L 01/02/22 05:08 AST 18 Units/L (15-37) 01/02/22 05:08 ALT 37 Units/L (12-78) 01/02/22 05:08 Alkaline Phosphatase 192 Units/L (46-116) H 01/02/22 05:08 Creatine Kinase 26 Units/L (26-192) 12/29/21 07:45 Troponin I High Sens 24.0 ng/L (4.0-60.0) 12/29/21 07:45 Total Protein 6.9 g/dL (6.4-8.2) 01/02/22 05:08 Albumin 2.2 g/dL (3.4-5.0) L 01/02/22 05:08 Globulin 4.7 g/dL (2.5-4.5) H 01/02/22 05:08 Albumin/Globulin Ratio 0.5 Ratio (1.1-2.1) L 01/02/22 05:08 Specimen Type Clean catch urine 12/28/21 18:45 Urine Color Pale yellow (YELLOW) 12/28/21 18:45 Urine Appearance Slightly hazy (CLEAR) 12/28/21 18:45 Urine pH 6.0 (5.0 - 8.0) 12/28/21 18:45 Ur Specific [place] 1.010 (1.000-1.030) 12/28/21 18:45 Urine Protein Negative (NEGATIVE) 12/28/21 18:45 Urine Glucose (UA) Negative (NEGATIVE) 12/28/21 18:45 Urine Ketones Negative (NEGATIVE) 12/28/21 18:45 Urine Blood 1+ (NEGATIVE) 12/28/21 18:45 Urine Nitrite Negative (NEGATIVE) 12/28/21 18:45 Urine Bilirubin Negative (NEGATIVE) 12/28/21 18:45 Urine Urobilinogen Normal (NORMAL) 12/28/21 18:45 Ur Leukocyte Esterase 3+ (NEGATIVE) 12/28/21 18:45 Urine RBC 3-5 /HPF (0-3) A 12/28/21 18:45 Urine WBC 10-20 /HPF (0-5) A 12/28/21 18:45 Ur Squamous Epith Cells Few /HPF (NEGATIVE) 12/28/21 18:45 Urine Bacteria 1+ /HPF (NEGATIVE) 12/28/21 18:45 Ur Culture Indicated? Yes/culture set up 12/28/21 18:45 SARS-CoV-2 (PCR) Negative (NEGATIVE) 12/28/21 17:32 Monoscreen Negative (NEGATIVE) 12/28/21 18:32 Influenza Type A (PCR) Negative (NEGATIVE) 12/28/21 17:32 Influenza Type B (PCR) Negative (NEGATIVE) 12/28/21 17:32 RSV (PCR) Negative (NEGATIVE) 12/28/21 17:32 S. pyogenes (TEM-PCR) Not detected (NOT DETECT) 12/29/21 11:38 - Plan (1) Bronchitis Status: Acute Plan: NORMAL SALINE AT 125 ML/HR, FORTAZ 1G IV Q8H, LEVAQUIN 500MG IV DAILY, NYSTATIN SWISH AND SWALLOW QID, MAGIC MOUTHWASH QID, THE POTASSIUM AND MAGNESIUM PROTOCOLS, LOVENOX 40MG SC DAILY, TORADOL 30MG IV Q6H PRN, ZOFRAN 4MG IV Q6H PRN, CHLORASEPTIC SPRAY Q2H PRN, AND HER HOME MEDICATIONS WERE RESUMED (2) UTI (urinary tract infection) Status: Acute Qualifiers: Urinary tract infection type: acute cystitis Hematuria presence: with hematuria Qualified Code(s): N30.01 - Acute cystitis with hematuria (3) Generalized weakness Status: Acute (4) Hypomagnesemia Status: Acute (5) HTN (hypertension) Status: Chronic Qualifiers: Hypertension type: primary hypertension Plan: CONTINUE HOME MEDS
[2022-01-02] MEDS: AMBIEN PO SCH (20:26)
[2022-01-02] MEDS: OLMESARTAN 5 MG PO SCH (20:26)
[2022-01-03] MEDS: NS 1,000 ML IV 1,000 ML IV SCH ×5 (04:43→23:01)
[2022-01-03] MEDS: NORCO 10/325 TAB PO PRN ×3 (04:50→15:05)
[2022-01-03] MEDS: FORTAZ or TAZICEF VIAL INJ 1 G in NS 100 ML IV 100 ML IV SCH ×3 (05:02→21:58)
[2022-01-03] MEDS: NEURONTIN CAP 300 MG PO SCH ×3 (05:03→21:59)
--- NOTE | 2022-01-03 05:56 | RAD ---
PROCEDURE: Chest X-ray 1 View .HISTORY: Dyspnea.TECHNIQUE: AP view.COMPARISON: 01/02/2022.TECHNICAL QUALITY: Satisfactory .FINDINGS:Unchanged start size upper limits of normal.Mediastinum and hilar regions show no masses or lymphadenopathy .Normal central vascularity .No pulmonary consolidation, masses, pleural fluid, or pneumothorax .No acute bony abnormality .IMPRESSION:Unchanged start size upper limits of normal with no other evidence of active disease.Electronically signed by: Art Martinez (Jan 03, 2022 05:55:11)
[2022-01-03 06:57] LABS: BASOPHILS # (AUTO) 0.1 X10^3/uL (0.0-0.1); BASOPHILS % (AUTO) 0.6 % (0.2-1.0); EOSINOPHILS # (AUTO) 0.3 x10^3/uL (0.0-0.2); EOSINOPHILS % (AUTO) 1.6 % (0.9-2.9); HEMATOCRIT 22.1 % (36.0-47.0); HEMOGLOBIN 7.3 g/dL (12.0-16.0); LYMPHOCYTES # (AUTO) 1.6 X10^3/uL (1.3-2.9); LYMPHOCYTES % (AUTO) 8.9 % (21.0-51.0); MEAN CORPUSCULAR HEMOGLOBIN 29.4 pg (27.0-34.0); MEAN CORPUSCULAR VOLUME 89.1 fL (80.0-100.0); MEAN PLATELET VOLUME 6.9 fL (7.4-11.0); MONOCYTES # (AUTO) 0.9 x10^3/uL (0.3-0.8); MONOCYTES % (AUTO) 4.9 % (0.0-13.0); NEUTROPHILS # (AUTO) 15.5 x10^3/uL (2.2-4.8); RED BLOOD COUNT 2.48 X10^6/uL (3.5-5.4); RED CELL DISTRIBUTION WIDTH 18.3 % (11.6-16.5); WHITE BLOOD COUNT 18.5 X10^3/uL (3.6-10.0)
[2022-01-03 07:18] LABS: CALCIUM 7.7 mg/dL (8.5-10.1); CARBON DIOXIDE 24.5 mmol/L (21-32); COR CA(FOR HYPOALB) 9.3 mg/dL (8.5-10.1); CREATININE 1.15 mg/dL (0.55-1.02); TOTAL PROTEIN 6.4 g/dL (6.4-8.2)
[2022-01-03] MEDS: GLUCOTROL XL 24-HR PO SCH (08:55)
[2022-01-03] MEDS: MAGIC MOUTHWASH (Orig. Formula) MT SCH ×4 (08:55→22:02)
[2022-01-03] MEDS: MAXZIDE 37.5/25 MG PO SCH (08:56)
[2022-01-03] MEDS: VITAMIN B-12 PO SCH (08:56)
[2022-01-03] MEDS: NYSTATIN SUSP PO SCH ×5 (08:56→21:59)
[2022-01-03] MEDS: LOVENOX INJ 40 MG SYR SC SCH (08:56)
[2022-01-03] MEDS: PROTONIX TAB 40 MG PO SCH ×3 (08:56→21:59)
[2022-01-03] MEDS: HEMOCYTE-PLUS PO SCH ×2 (08:56→15:43)
[2022-01-03] MEDS: MILK OF MAGNESIA PO SCH ×2 (10:07→21:59)
[2022-01-03] MEDS ORDERED: LASIX PO ONE (13:32)
[2022-01-03] MEDS ORDERED: LASIX IVP ONE ×2 (13:49→15:02)
[2022-01-03] MEDS: LEVAQUIN PREMIX IV 500 MG 500 MG/100 ML BAG IV SCH ×2 (14:20→15:43)
[2022-01-03] MEDS: TORADOL 30 MG VIAL IVP PRN (19:47)
[2022-01-03] MEDS: AMBIEN PO SCH (21:59)
[2022-01-04] MEDS: NORCO 10/325 TAB PO PRN ×2 (01:46→17:54)
--- NOTE | 2022-01-04 05:31 | RAD ---
PROCEDURE: Chest X-ray 1 View .HISTORY: DYSPNEA .TECHNIQUE: AP view .COMPARISON: 01/03/2022.TECHNICAL QUALITY: Satisfactory .FINDINGS:Heart size upper limits of normal.Mediastinum and hilar regions show no masses or lymphadenopathy .Normal central vascularity .No pulmonary consolidation, masses, pleural fluid, or pneumothorax .No acute bony abnormality .IMPRESSION:Stable chest.Electronically signed by: Art Martinez (Jan 04, 2022 05:29:56)
[2022-01-04] MEDS: FORTAZ or TAZICEF VIAL INJ 1 G in NS 100 ML IV 100 ML IV SCH ×3 (05:57→21:45)
[2022-01-04] MEDS: NEURONTIN CAP 300 MG PO SCH ×3 (05:57→21:44)
[2022-01-04] MEDS: NS 1,000 ML IV 1,000 ML IV SCH ×3 (06:29→23:14)
[2022-01-04 07:27] LABS: EOSINOPHILS # (AUTO) 0.5 x10^3/uL (0.0-0.2); MEAN CORPUSCULAR VOLUME 88.9 fL (80.0-100.0); MONOCYTES # (AUTO) 1.3 x10^3/uL (0.3-0.8)
[2022-01-04 07:43] LABS: HEMOGLOBIN 7.5 g/dL (12.0-16.0)
[2022-01-04 07:45] LABS: BASOPHILS # (AUTO) 0.1 X10^3/uL (0.0-0.1); BASOPHILS % (AUTO) 0.6 % (0.2-1.0); EOSINOPHILS % (AUTO) 2.1 % (0.9-2.9); HEMATOCRIT 22.2 % (36.0-47.0); LYMPHOCYTES # (AUTO) 2.7 X10^3/uL (1.3-2.9); LYMPHOCYTES % (AUTO) 12.6 % (21.0-51.0); MEAN CORPUSCULAR HEMOGLOBIN 29.9 pg (27.0-34.0); MEAN CORPUSCULAR HGB CONC 33.6 g/dL (33.0-35.0); MEAN PLATELET VOLUME 7.3 fL (7.4-11.0); MONOCYTES % (AUTO) 6.2 % (0.0-13.0); NEUTROPHILS % (AUTO) 78.5 % (42.0-75.0); RED CELL DISTRIBUTION WIDTH 18.8 % (11.6-16.5)
[2022-01-04 07:51] LABS: ALANINE AMINOTRANSFERASE 36 Units/L (12-78); ALBUMIN 2.1 g/dL (3.4-5.0); ALKALINE PHOSPHATASE 171 Units/L (46-116); ASPARTATE AMINO TRANSFERASE 25 Units/L (15-37); BLOOD UREA NITROGEN 13 mg/dL (7-18); CALCIUM 7.7 mg/dL (8.5-10.1); CARBON DIOXIDE 25.2 mmol/L (21-32); CHLORIDE 105 mmol/L (98-107); COR CA(FOR HYPOALB) 9.2 mg/dL (8.5-10.1); SODIUM 138 mmol/L (136-145); TOTAL PROTEIN 6.5 g/dL (6.4-8.2); eGFR NON BLACK RACES 47 (>60)
[2022-01-04 08:48] LABS: PLATELET MORPHOLOGY COMMENT NORMAL (NORMAL)
[2022-01-04] MEDS: LOVENOX INJ 40 MG SYR SC SCH (08:55)
[2022-01-04] MEDS: GLUCOTROL XL 24-HR PO SCH (08:55)
[2022-01-04] MEDS: HEMOCYTE-PLUS PO SCH (08:55)
[2022-01-04] MEDS: LEVAQUIN PREMIX IV 500 MG 500 MG/100 ML BAG IV SCH (08:55)
[2022-01-04] MEDS: MAXZIDE 37.5/25 MG PO SCH (08:56)
[2022-01-04] MEDS: MAGIC MOUTHWASH (Orig. Formula) MT SCH ×4 (08:56→21:44)
[2022-01-04] MEDS: MILK OF MAGNESIA PO SCH ×2 (08:56→21:45)
[2022-01-04] MEDS: VITAMIN B-12 PO SCH (08:57)
[2022-01-04] MEDS: NYSTATIN SUSP PO SCH ×4 (08:57→21:45)
[2022-01-04] MEDS: PROTONIX TAB 40 MG PO SCH ×2 (08:57→21:45)
[2022-01-04 09:08] LABS: WHITE BLOOD COUNT 25.3 X10^3/uL (3.6-10.0)
[2022-01-04] MEDS ORDERED: LASIX IVP SCH (11:00)
[2022-01-04 14:33] VITALS: BMI 37.3
[2022-01-04] MEDS: MAGNESIUM SULFATE 1 GRAM/100 mL PREMIX 1 G/100 ML BAG IV PRN (17:54)
[2022-01-04] MEDS: AMBIEN PO SCH (21:44)
[2022-01-04] MEDS: TORADOL 30 MG VIAL IVP PRN (21:49)
[2022-01-05] MEDS: FORTAZ or TAZICEF VIAL INJ 1 G in NS 100 ML IV 100 ML IV SCH ×2 (05:22→21:11)
[2022-01-05] MEDS: NEURONTIN CAP 300 MG PO SCH ×3 (05:22→21:13)
[2022-01-05] MEDS: NS 1,000 ML IV 1,000 ML IV SCH ×3 (06:04→22:48)
[2022-01-05 06:22] LABS: BASOPHILS # (AUTO) 0.1 X10^3/uL (0.0-0.1); EOSINOPHILS # (AUTO) 0.3 x10^3/uL (0.0-0.2); EOSINOPHILS % (AUTO) 2.2 % (0.9-2.9); HEMATOCRIT 23.1 % (36.0-47.0); HEMOGLOBIN 7.7 g/dL (12.0-16.0); LYMPHOCYTES # (AUTO) 2.1 X10^3/uL (1.3-2.9); LYMPHOCYTES % (AUTO) 13.9 % (21.0-51.0); MEAN CORPUSCULAR HEMOGLOBIN 29.5 pg (27.0-34.0); MEAN CORPUSCULAR HGB CONC 33.2 g/dL (33.0-35.0); MONOCYTES % (AUTO) 6.4 % (0.0-13.0); NEUTROPHILS # (AUTO) 11.6 x10^3/uL (2.2-4.8); NEUTROPHILS % (AUTO) 76.5 % (42.0-75.0); RED CELL DISTRIBUTION WIDTH 18.9 % (11.6-16.5); WHITE BLOOD COUNT 15.2 X10^3/uL (3.6-10.0)
[2022-01-05 06:35] LABS: ALBUMIN 2.3 g/dL (3.4-5.0); CALCIUM 8.4 mg/dL (8.5-10.1); CARBON DIOXIDE 29.1 mmol/L (21-32); COR CA(FOR HYPOALB) 9.8 mg/dL (8.5-10.1); CREATININE 1.4 mg/dL (0.55-1.02); MAGNESIUM 2.1 mg/dL (1.7-2.9); TOTAL PROTEIN 6.9 g/dL (6.4-8.2)
[2022-01-05] MEDS: LOVENOX INJ 40 MG SYR SC SCH (09:09)
[2022-01-05] MEDS: HEMOCYTE-PLUS PO SCH (09:10)
[2022-01-05] MEDS: GLUCOTROL XL 24-HR PO SCH (09:10)
[2022-01-05] MEDS: MAXZIDE 37.5/25 MG PO SCH (09:10)
[2022-01-05] MEDS: MAGIC MOUTHWASH (Orig. Formula) MT SCH ×4 (09:10→21:16)
[2022-01-05] MEDS: VITAMIN B-12 PO SCH (09:10)
[2022-01-05] MEDS: PROTONIX TAB 40 MG PO SCH ×2 (09:10→21:13)
[2022-01-05] MEDS: MILK OF MAGNESIA PO SCH ×2 (09:11→21:12)
[2022-01-05] MEDS: NYSTATIN SUSP PO SCH ×4 (09:11→21:16)
[2022-01-05] MEDS: LEVAQUIN PREMIX IV 250 MG 250 MG/50 ML BAG IV SCH (11:19)
[2022-01-05] MEDS: NORCO 10/325 TAB PO PRN ×2 (11:20→21:13)
--- NOTE | 2022-01-05 13:37 | PCM.PROG ---
Progress Note - Progress Note for Day of Date of Exam: 01/05/22 - Subjective Subjective: WAS ADMITTED ON 12/28/21 FOR TREATMENT OF ACUTE BRONCHITIS, UTI, LEUKOCYTOSIS, GENERALIZED WEAKNESS, HYPOMAGNESEMIA, AND HTN. SHE HAS A HISTORY OF LEUKOCYTOSIS FOR WHICH SHE HAS SEEN FOR WORKUP. TODAY, SHE IS ALERT AND ORIENTED, LYING IN BED ON MORNING ROUNDS. SHE CONTINUES WITH COMPLAINTS OF GENERALIZED WEAKNESS AND SOME GENERALIZED SWELLING. SHE DOES ADMIT TO DECREASE IN SWELLING SINCE YESTERDAY. SHE RECEIVED A ONE TIME DOSE OF LASIX 20MG YESTERDAY. ON EXAMINATION, HEART IS REGULAR IN RATE AND RHYTHM. BILATERAL LUNGS ARE NOTED WITH DIMINISHED LUNG SOUNDS THROUGHOUT. ABDOMEN IS ROUND, SOFT, AND NON-TENDER WITH NORMAL BOWEL SOUNDS NOTED IN ALL QUADRANTS. NO UPPER OR LO WER EXTREMITY EDEMA NOTED. HER VITALS THIS MORNING ARE: 98.6-100-20-94%-140/73. LABS WERE OBTAINED. WBC 15.2, RBC 2.60, HGB 7.7, HCT 23.1, SODIUM 137, POTASSIUM 4.5, BUN 18, CREATININE 1.40, GLUCOSE 135, CALCIUM 8.4, MAGNESIUM 2.1, TOTAL BILI 0.10, ALK PHOS 165, TOTAL PROTEIN 6.9, ALBUMIN 2.3. CHEST XRAY WAS REPEATED THIS MORNING AND REVEALED: No significant abnormality identified. SHE IS CURRENTLY RECEIVING NORMAL SALINE AT 125 ML/HR, FORTAZ 1G IV BID, LEVAQUIN 250MG IV DAILY, MAGIC MOUTHWASH QID, NYSTATIN SWISH AND SWALLOW QID, THE POTASSIUM AND MAGNESIUM PROTOCOLS, LOVENOX 40MG SC DAILY, TORADOL 30MG IV Q6H PRN, ZOFRAN 4MG IV Q6H PRN, CHLORASEPTIC SPRAY Q2H PRN, AND HER HOME MEDICATIONS WERE RESUMED. WE WILL CONTINUE WITH CURRENT PLAN OF CARE TODAY. WE WILL ORDER AN AIT RESPIRATORY PANEL. OTHERWISE, WE WILL FOLLOW-UP WITH AM LABS AND CONTINUE TO MONITOR. TIME SPENT ON CLINICAL ASSESSMENT, REVIWING LABS AND IMAGING, DECISION MAKING, AND DOCUMENTATION GREATER THAN 45 MINUTES. - Past Medical Family Social History Past Med/Fam/Surg Hx: No changes since H&P Allergies: Allergies No Known Drug Allergies Allergy (Verified 04/29/20 20:19) - Review of Systems ROS: No change since H&P - Vital Signs and I&O's Vital Signs: Temperature 98.6 F Pulse Rate [Left Brachial] 104 Pulse Rate 112 Respiratory Rate 20 Blood Pressure [Left Arm] 140/73 Blood Pressure 126/61 O2 Sat by Pulse Oximetry 94 Intake and Output: Intake & Output 01/03/22 01/04/22 01/05/22 01/06/22 11:59 11:59 11:59 11:59 Intake Total 3754 / 3754 1635 / 1635 3089 / 3089 Balance 3754 / 3754 1635 / 1635 3089 / 3089 - Physical Exam Oriented: Normal Eyes: Normal Ear: Normal Nose: Normal Throat: Red Respiratory: Generalized, Diminished Cardiovascular: Normal Auscultation: Bowel Sounds: Normal Tenderness: Normal Skin: Normal Musculoskeletal: Normal Psychiatric: Normal Mood Description: Calm, Appropriate Affect: Normal Speech Pattern: Clear, Appropriate - Laboratory and Diagnostics Result Diagrams: 01/05/22 05:09 01/05/22 05:09 Labs: 12/30/21 10:03 Blood Blood Culture - Final 12/30/21 09:56 Blood Blood Culture - Final 12/30/21 22:15 Urine,Clean Catch Urine Culture - Final 12/28/21 18:45 Urine,Clean Catch Urine Culture - Final Laboratory WBC 15.2 X10^3/uL (3.6-10.0) H D 01/05/22 05:09 RBC 2.60 X10^6/uL (3.5-5.4) L 01/05/22 05:09 Hgb 7.7 g/dL (12.0-16.0) L 01/05/22 05:09 Hct 23.1 % (36.0-47.0) L 01/05/22 05:09 MCV 89.0 fL (80.0-100.0) 01/05/22 05:09 MCH 29.5 pg (27.0-34.0) 01/05/22 05:09 MCHC 33.2 g/dL (33.0-35.0) 01/05/22 05:09 RDW 18.9 % (11.6-16.5) H 01/05/22 05:09 Plt Count 388 X10^3/uL (150.0-450.0) 01/05/22 05:09 Plt Count Comment Adequate (ADEQUATE) 01/04/22 06:28 MPV 7.0 fL (7.4-11.0) L 01/05/22 05:09 Neut % (Auto) 76.5 % (42.0-75.0) H 01/05/22 05:09 Lymph % (Auto) 13.9 % (21.0-51.0) L 01/05/22 05:09 [place] % (Auto) 6.4 % (0.0-13.0) 01/05/22 05:09 Eos % (Auto) 2.2 % (0.9-2.9) 01/05/22 05:09 Baso % (Auto) 1.0 % (0.2-1.0) 01/05/22 05:09 Neut # (Auto) 11.6 x10^3/uL (2.2-4.8) H 01/05/22 05:09 Lymph # (Auto) 2.1 X10^3/uL (1.3-2.9) 01/05/22 05:09 [place] # (Auto) 1.0 x10^3/uL (0.3-0.8) H 01/05/22 05:09 Eos # (Auto) 0.3 x10^3/uL (0.0-0.2) H 01/05/22 05:09 Baso # (Auto) 0.1 X10^3/uL (0.0-0.1) 01/05/22 05:09 Absolute Nucleated RBC 0.0 /100WBC 01/05/22 05:09 Total Counted 100 01/04/22 06:28 Neutrophils % (Manual) 80 % (39-76) H 01/04/22 06:28 Band Neutrophils % 1 % (0-10) 12/29/21 05:04 Lymphocytes % (Manual) 14 % (13-43) 01/04/22 06:28 Monocytes % (Manual) 5 % (4-9) 01/04/22 06:28 Eosinophils % (Manual) 1 % (0-6) 01/04/22 06:28 Metamyelocytes % 1 12/28/21 18:32 Myelocytes % 2 12/28/21 18:32 Atypical Lymphocytes Rare A 12/28/21 18:32 Plt Morphology Comment Normal (NORMAL) 01/04/22 06:28 RBC Morphology Normal (NORMAL) 01/04/22 06:28 Anisocytosis Slight A 12/30/21 05:19 Stomatocytes 1+ A 12/28/21 18:32 Sodium 137 mmol/L (136-145) 01/05/22 05:09 Corrected Sodium 138 mmol/L (136-145) 01/05/22 05:09 Potassium 4.5 mmol/L (3.5-5.1) 01/05/22 05:09 Chloride 103 mmol/L (98-107) 01/05/22 05:09 Carbon Dioxide 29.1 mmol/L (21-32) 01/05/22 05:09 BUN 18 mg/dL (7-18) 01/05/22 05:09 Creatinine 1.40 mg/dL (0.55-1.02) H 01/05/22 05:09 Est GFR (MDRD) Af Amer 48 (>60) L 01/05/22 05:09 Est GFR (MDRD) Non-Af 40 (>60) L 01/05/22 05:09 Glucose 135 mg/dL (65-99) H 01/05/22 05:09 POC Glucose (mg/dL) 119 mg/dL (65-99) H 01/05/22 11:12 Lactic Acid 0.6 mmol/L (0.4-2.0) 12/30/21 10:03 Calcium 8.4 mg/dL (8.5-10.1) L 01/05/22 05:09 Corrected Calcium 9.8 mg/dL (8.5-10.1) 01/05/22 05:09 Magnesium 2.1 mg/dL (1.7-2.9) 01/05/22 05:09 Total Bilirubin 0.10 mg/dL (0.2-1.0) L 01/05/22 05:09 AST 25 Units/L (15-37) 01/05/22 05:09 ALT 40 Units/L (12-78) 01/05/22 05:09 Alkaline Phosphatase 165 Units/L (46-116) H 01/05/22 05:09 Creatine Kinase 26 Units/L (26-192) 12/29/21 07:45 Troponin I High Sens 24.0 ng/L (4.0-60.0) 12/29/21 07:45 Total Protein 6.9 g/dL (6.4-8.2) 01/05/22 05:09 Albumin 2.3 g/dL (3.4-5.0) L 01/05/22 05:09 Globulin 4.6 g/dL (2.5-4.5) H 01/05/22 05:09 Albumin/Globulin Ratio 0.5 Ratio (1.1-2.1) L 01/05/22 05:09 Specimen Type Clean catch urine 12/28/21 18:45 Urine Color Pale yellow (YELLOW) 12/28/21 18:45 Urine Appearance Slightly hazy (CLEAR) 12/28/21 18:45 Urine pH 6.0 (5.0 - 8.0) 12/28/21 18:45 Ur Specific [place] 1.010 (1.000-1.030) 12/28/21 18:45 Urine Protein Negative (NEGATIVE) 12/28/21 18:45 Urine Glucose (UA) Negative (NEGATIVE) 12/28/21 18:45 Urine Ketones Negative (NEGATIVE) 12/28/21 18:45 Urine Blood 1+ (NEGATIVE) 12/28/21 18:45 Urine Nitrite Negative (NEGATIVE) 12/28/21 18:45 Urine Bilirubin Negative (NEGATIVE) 12/28/21 18:45 Urine Urobilinogen Normal (NORMAL) 12/28/21 18:45 Ur Leukocyte Esterase 3+ (NEGATIVE) 12/28/21 18:45 Urine RBC 3-5 /HPF (0-3) A 12/28/21 18:45 Urine WBC 10-20 /HPF (0-5) A 12/28/21 18:45 Ur Squamous Epith Cells Few /HPF (NEGATIVE) 12/28/21 18:45 Urine Bacteria 1+ /HPF (NEGATIVE) 12/28/21 18:45 Ur Culture Indicated? Yes/culture set up 12/28/21 18:45 SARS-CoV-2 (PCR) Negative (NEGATIVE) 12/28/21 17:32 Monoscreen Negative (NEGATIVE) 12/28/21 18:32 Influenza Type A (PCR) Negative (NEGATIVE) 12/28/21 17:32 Influenza Type B (PCR) Negative (NEGATIVE) 12/28/21 17:32 RSV (PCR) Negative (NEGATIVE) 12/28/21 17:32 S. pyogenes (TEM-PCR) Not detected (NOT DETECT) 12/29/21 11:38 - Plan (1) Bronchitis Status: Acute Plan: NORMAL SALINE AT 125 ML/HR, FORTAZ 1G IV BID, LEVAQUIN 250MG IV DAILY, NYSTATIN SWISH AND SWALLOW QID, MAGIC MOUTHWASH QID, THE POTASSIUM AND MAGNESIUM PROTOCOLS, LOVENOX 40MG SC DAILY, TORADOL 30MG IV Q6H PRN, ZOFRAN 4MG IV Q6H PRN, CHLORASEPTIC SPRAY Q2H PRN, AND HER HOME MEDICATIONS WERE RESUMED (2) UTI (urinary tract infection) Status: Acute Qualifiers: Urinary tract infection type: acute cystitis Hematuria presence: with hematuria Qualified Code(s): N30.01 - Acute cystitis with hematuria (3) Leukocytosis Status: Acute Qualifiers: Leukocytosis type: unspecified Qualified Code(s): D72.829 - Elevated white blood cell count, unspecified (4) Generalized weakness Status: Acute (5) Hypomagnesemia Status: Acute (6) HTN (hypertension) Status: Chronic Qualifiers: Hypertension type: primary hypertension Plan: CONTINUE HOME MEDS
[2022-01-05] MEDS: AMBIEN PO SCH (21:14)
[2022-01-06] MEDS: NEURONTIN CAP 300 MG PO SCH (05:01)
[2022-01-06] MEDS: NORCO 10/325 TAB PO PRN (05:56)
[2022-01-06] MEDS: NS 1,000 ML IV 1,000 ML IV SCH (06:23)
[2022-01-06 06:37] LABS: BASOPHILS # (AUTO) 0.1 X10^3/uL (0.0-0.1); BASOPHILS % (AUTO) 0.9 % (0.2-1.0); EOSINOPHILS # (AUTO) 0.3 x10^3/uL (0.0-0.2); EOSINOPHILS % (AUTO) 2.4 % (0.9-2.9); HEMATOCRIT 22.4 % (36.0-47.0); HEMOGLOBIN 7.4 g/dL (12.0-16.0); LYMPHOCYTES # (AUTO) 2.1 X10^3/uL (1.3-2.9); LYMPHOCYTES % (AUTO) 16.2 % (21.0-51.0); MEAN CORPUSCULAR HEMOGLOBIN 29.4 pg (27.0-34.0); MEAN CORPUSCULAR HGB CONC 33.2 g/dL (33.0-35.0); MEAN CORPUSCULAR VOLUME 88.5 fL (80.0-100.0); MEAN PLATELET VOLUME 6.1 fL (7.4-11.0); MONOCYTES # (AUTO) 1.1 x10^3/uL (0.3-0.8); MONOCYTES % (AUTO) 8.6 % (0.0-13.0); NEUTROPHILS # (AUTO) 9.4 x10^3/uL (2.2-4.8); NEUTROPHILS % (AUTO) 71.9 % (42.0-75.0); RED BLOOD COUNT 2.53 X10^6/uL (3.5-5.4); RED CELL DISTRIBUTION WIDTH 18.5 % (11.6-16.5); WHITE BLOOD COUNT 13.1 X10^3/uL (3.6-10.0)
[2022-01-06 06:45] LABS: ALANINE AMINOTRANSFERASE 44 Units/L (12-78); ALBUMIN 2.3 g/dL (3.4-5.0); ALKALINE PHOSPHATASE 174 Units/L (46-116); BLOOD UREA NITROGEN 14 mg/dL (7-18); CALCIUM 8.6 mg/dL (8.5-10.1); CARBON DIOXIDE 25.8 mmol/L (21-32); CREATININE 1.04 mg/dL (0.55-1.02); SODIUM 137 mmol/L (136-145); TOTAL PROTEIN 7.2 g/dL (6.4-8.2); eGFR NON BLACK RACES 56 (>60)
[2022-01-06 07:02] LABS: ASPARTATE AMINO TRANSFERASE 34 Units/L (15-37); CHLORIDE 104 mmol/L (98-107)
[2022-01-06] MEDS: GLUCOTROL XL 24-HR PO SCH (09:10)
[2022-01-06] MEDS: FORTAZ or TAZICEF VIAL INJ 1 G in NS 100 ML IV 100 ML IV SCH (09:10)
[2022-01-06] MEDS: LOVENOX INJ 40 MG SYR SC SCH (09:11)
[2022-01-06] MEDS: PROTONIX TAB 40 MG PO SCH (09:11)
[2022-01-06] MEDS: HEMOCYTE-PLUS PO SCH (09:11)
[2022-01-06] MEDS: LEVAQUIN PREMIX IV 250 MG 250 MG/50 ML BAG IV SCH (09:11)
[2022-01-06] MEDS: MAGIC MOUTHWASH (Orig. Formula) MT SCH (09:11)
[2022-01-06] MEDS: MILK OF MAGNESIA PO SCH (09:12)
[2022-01-06] MEDS: VITAMIN B-12 PO SCH (09:12)
[2022-01-06] MEDS: MAXZIDE 37.5/25 MG PO SCH (09:12)
[2022-01-06] MEDS: NYSTATIN SUSP PO SCH (09:48)
[2022-01-06 10:24] VITALS: BP 185/81
== END 2022-01-06 12:15 | disposition home or self-care (01) | DRG 202 ==
LOC: ER 16:42 → MED/SURG 16:42
PROVIDERS: ADMIT Family Medicine; ATTEND Internal Medicine
DX: R94.31 Abnormal electrocardiogram [ECG] [EKG]; Z20.822 Contact with and (suspected) exposure to COVID-19; J20.8 Acute bronchitis due to other specified organisms; R06.02 Shortness of breath; N30.01 Acute cystitis with hematuria; E83.42 Hypomagnesemia; I10 Essential (primary) hypertension; R53.1 Weakness; E11.65 Type 2 diabetes mellitus with hyperglycemia

== ENCOUNTER 2022-04-01 14:07 | Inpatient (IN) ==
[2022-04-01 14:41] VITALS: BMI 32.1
[2022-04-01] MEDS: NS 1,000 ML IV 1,000 ML IV SCH (15:45)
--- NOTE | 2022-04-01 15:50 | EKG ---
Test Reason : weakness, hypotension Blood Pressure : */* mmHG Vent. Rate : 100 BPM Atrial Rate : 100 BPM P-R Int : 142 ms QRS Dur : 78 ms QT Int : 314 ms P-R-T Axes : 36 -31 141 degrees QTc Int : 405 ms Sinus rhythm with premature atrial complexes Left axis deviation Cannot rule out Anterior infarct , age undetermined Abnormal ECG No previous ECGs available Confirmed by Clarence Ware ([id number]) on 04/07/2022 5:54:41 PM Referred By: Confirmed By: Clarence Ware
[2022-04-01 16:23] LABS: BASOPHILS # (AUTO) 0.1 X10^3/uL (0.0-0.1); HEMOGLOBIN 8.8 g/dL (12.0-16.0); RED BLOOD COUNT 3.13 X10^6/uL (3.5-5.4); RED CELL DISTRIBUTION WIDTH 15.2 % (11.6-16.5)
[2022-04-01 16:28] LABS: BASOPHILS % (AUTO) 0.3 % (0.2-1.0); EOSINOPHILS # (AUTO) 0.3 x10^3/uL (0.0-0.2); EOSINOPHILS % (AUTO) 1.3 % (0.9-2.9); HEMATOCRIT 26.4 % (36.0-47.0); LYMPHOCYTES # (AUTO) 1.7 X10^3/uL (1.3-2.9); LYMPHOCYTES % (AUTO) 7.9 % (21.0-51.0); MEAN CORPUSCULAR HEMOGLOBIN 28.1 pg (27.0-34.0); MEAN CORPUSCULAR HGB CONC 33.4 g/dL (33.0-35.0); MEAN CORPUSCULAR VOLUME 84.2 fL (80.0-100.0); MEAN PLATELET VOLUME 6.6 fL (7.4-11.0); MONOCYTES # (AUTO) 0.9 x10^3/uL (0.3-0.8); MONOCYTES % (AUTO) 4.1 % (0.0-13.0); NEUTROPHILS # (AUTO) 18.6 x10^3/uL (2.2-4.8); NEUTROPHILS % (AUTO) 86.4 % (42.0-75.0); WHITE BLOOD COUNT 21.5 X10^3/uL (3.6-10.0)
[2022-04-01 16:35] LABS: ALBUMIN 2.1 g/dL (3.4-5.0); CALCIUM 7.7 mg/dL (8.5-10.1); CARBON DIOXIDE 29.9 mmol/L (21-32); COR CA(FOR HYPOALB) 9.2 mg/dL (8.5-10.1); CREATININE 2.53 mg/dL (0.55-1.02); TOTAL PROTEIN 7.1 g/dL (6.4-8.2)
[2022-04-01 16:38] LABS: PLATELET MORPHOLOGY COMMENT NORMAL (NORMAL)
[2022-04-01] MEDS ORDERED: K-DUR TAB 20 MEQ PO ONE (16:51)
[2022-04-01] MEDS ORDERED: LEVAQUIN PREMIX IV 500 MG 500 MG/100 ML BAG IV ONE (17:00)
[2022-04-01] MEDS ORDERED: FORTAZ or TAZICEF VIAL INJ ONE (17:03)
[2022-04-01] MEDS ORDERED: NS 100 ML IV 100 ML ONE (17:03)
[2022-04-01 17:43] LABS: BILIRUBIN,URINE NEGATIVE (NEGATIVE); BLOOD/HEMOGLOBIN,URINE NEGATIVE (NEGATIVE); GLUCOSE, URINE NEGATIVE (NEGATIVE); KETONES,URINE NEGATIVE (NEGATIVE); LEUKOCYTE ESTERASE ,URINE NEGATIVE (NEGATIVE); NITRITES,URINE NEGATIVE (NEGATIVE); PROTEIN,URINE NEGATIVE (NEGATIVE); UROBILINOGEN,URINE NORMAL (NORMAL)
[2022-04-01 17:46] LABS: APPEARANCE,URINE CLEAR (CLEAR); COLOR,URINE AMBER (YELLOW)
[2022-04-01] MEDS: FORTAZ or TAZICEF VIAL INJ 1 G in NS 100 ML IV 100 ML IV SCH (18:20)
[2022-04-01] MEDS: MAGNESIUM SULFATE 1 GRAM/100 mL PREMIX 1 G/100 ML BAG IV PRN ×4 (19:44→22:18)
[2022-04-01] MEDS: ZOFRAN INJ 4 MG VIAL IVP PRN (21:23)
[2022-04-02] MEDS: AMBIEN PO SCH ×2 (02:11→20:30)
[2022-04-02 06:08] LABS: BASOPHILS # (AUTO) 0.1 X10^3/uL (0.0-0.1); BASOPHILS % (AUTO) 0.8 % (0.2-1.0); EOSINOPHILS # (AUTO) 0.4 x10^3/uL (0.0-0.2); EOSINOPHILS % (AUTO) 2.7 % (0.9-2.9); HEMATOCRIT 22.7 % (36.0-47.0); HEMOGLOBIN 7.9 g/dL (12.0-16.0); LYMPHOCYTES # (AUTO) 1.8 X10^3/uL (1.3-2.9); LYMPHOCYTES % (AUTO) 11.1 % (21.0-51.0); MEAN CORPUSCULAR HEMOGLOBIN 28.6 pg (27.0-34.0); MEAN CORPUSCULAR HGB CONC 34.7 g/dL (33.0-35.0); MEAN CORPUSCULAR VOLUME 82.6 fL (80.0-100.0); MEAN PLATELET VOLUME 6.6 fL (7.4-11.0); MONOCYTES # (AUTO) 0.8 x10^3/uL (0.3-0.8); MONOCYTES % (AUTO) 5.3 % (0.0-13.0); NEUTROPHILS # (AUTO) 12.8 x10^3/uL (2.2-4.8); NEUTROPHILS % (AUTO) 80.1 % (42.0-75.0); RED BLOOD COUNT 2.75 X10^6/uL (3.5-5.4); RED CELL DISTRIBUTION WIDTH 14.6 % (11.6-16.5)
[2022-04-02 06:26] LABS: ALANINE AMINOTRANSFERASE 9 Units/L (12-78); ALBUMIN 1.8 g/dL (3.4-5.0); ALKALINE PHOSPHATASE 170 Units/L (46-116); ASPARTATE AMINO TRANSFERASE 11 Units/L (15-37); BLOOD UREA NITROGEN 18 mg/dL (7-18); CALCIUM 7.8 mg/dL (8.5-10.1); CARBON DIOXIDE 26.6 mmol/L (21-32); COR CA(FOR HYPOALB) 9.6 mg/dL (8.5-10.1); CREATININE 1.84 mg/dL (0.55-1.02); MAGNESIUM 2.9 mg/dL (2.0-2.9); TOTAL PROTEIN 6.5 g/dL (6.4-8.2); eGFR NON BLACK RACES 29 (>60)
[2022-04-02] MEDS: NS 1,000 ML IV 1,000 ML IV SCH ×3 (06:49→19:40)
[2022-04-02 07:37] LABS: CHLORIDE 93 mmol/L (98-107); SODIUM 128 mmol/L (136-145)
[2022-04-02] MEDS: LEVAQUIN PREMIX IV 250 MG 250 MG/50 ML BAG IV SCH (08:35)
[2022-04-02] MEDS: FORTAZ or TAZICEF VIAL INJ 1 G in NS 100 ML IV 100 ML IV SCH (09:05)
[2022-04-02] MEDS: ALBUMIN HUMAN 25%- 100 ML 100 ML IV SCH (10:11)
--- NOTE | 2022-04-02 10:52 | RAD ---
HISTORYleukocytosis, hypotensionSTUDYCHEST x-ray, 1 VIEWCOMPARISONX-ray 01/04/2022FINDINGSImproving density at the left lung base with probable persistent mild linear atelectasis present. No pneumothorax or pleural effusion is seen. Heart is likely normal in size.IMPRESSIONProbable mild linear atelectasis in the left lower lung. This is improved appearance from prior study.Electronically signed by: Jack Springer (Apr 02, 2022 10:51:14)
[2022-04-02 11:20] LABS: IRON 31 ug/dL (50-175)
[2022-04-02] MEDS ORDERED: PHENERGAN TAB 25 MG PO PRN (12:17)
[2022-04-02] MEDS ORDERED: VITAMIN B-12 PO SCH (12:30)
--- NOTE | 2022-04-02 12:40 | DR.H&P ---
H&P - History & Physical for Day of: H&P Date: 04/01/22 - Chief Complaint Chief Complaint: HYPOTENSION, WEAKNESS, RECENT FALL, LEFT WRIST PAIN, LEUKOCYTOSIS - History of Present Illness History of Present Illness: IS A 71 YEAR OLD PATIENT OF OURS. SHE PRESENTED TO THE HOSPITAL A DIRECT ADMISSION FROM THE OFFICE DUE TO HYPOTENSION, GENERALIZED WEAKNESS, RECENT FALL, AND LEUKOCYTOSIS. PATIENT ALSO COMPLAINED OF LEFT WRIST PAIN FOLLOWING A FALL ON THE PREVIOUS DAY. HER BLOOD PRESSURE IN THE OFFICE WAS 77/44. ON ARRIVAL TO THE HOSPITAL, HER VITALS WERE: 98.4-105-16-95%-116/62. LABS WERE OBTAINED. WBC 21.5, RBC 3.13, HGB 8.8, HCT 26.4, PLT COUNT 538, SODIUM 124, POTASSIUM 3.1, CHLORIDE 88, BUN 21, CREATININE 2.53, GLUCOSE 113, CALCIUM 7.7, MAGNESIUM 1.4, IRON 31, TRANSFERRIN 92, FERRITIN 525, AST 19, ALT 8, ALK PHOS 199, CREATINE KINASE 64, TOTAL PROTEIN 7.1, ALBUMIN 2.1, VITAMIN B12 >2000, FOLATE 3.7. URINALYSIS WAS OBTAINED AND WAS UNREMARKABLE. URINE AND BLOOD CULTURES WERE SET UP. A CHEST XRAY WAS OBTAINED AND REVEALED: Probable mild linear atelectasis in the left lower lung. This is improved appearance from prior study. SHE WAS STARTED ON [place]AML SALINE AT 80 ML/HR, LEVAQUIN 250MG IV DAILY, FORTAZ 1G IV DAILY, ALBUMIN 25% IV DAILY, XOPENEX NEBS QID, AND ZOFRAN 4MG IV Q6H PRN. HER HOME MEDICATIONS OF BENTYL, NEURONTIN, GLIPIZIDE, NORCO, PANTOPRAZOLE, PROMETHAZINE, AND ZOLPIDEM WERE RESUMED. WE WILL ORDER A BLOOD SMEAR FOR PATHOLOGY REVIEW. OTHERWISE, WE WILL FOLLOW-UP WITH AM LABS AND CHEST XRAY AND CONTINUE TO MONITOR. TIME SPENT ON CLINICAL ASSESSMENT, REVIWING LABS AND IMAGING, DECISION MAKING, AND DO CUMENTATION GREATER THAN 75 MINUTES. - Past Medical History Past Medical History: Anemia, Diabetes, GERD Additional Medical History: INSOMNIA, - Past Surgical History Surgical History: Abdominal Surgery, Cholecystectomy, Hysterectomy, Ortho Surgery - Family History Family Medical History: Diabetes Mellitus, Coronary Artery Disease, Heart Failure, Hypertension - Social History Does patient currently use any type of tobacco product: No Have you used tobacco products in the last 12 months: No Type of Tobacco Use: None Does any household member use tobacco: No Alcohol Use: None Drug Use: None - Medications Home Medications: No Known Drug Allergies Allergy (Verified 04/29/20 20:19) - Review of Systems Constitutional: Weakness Eyes: No Symptoms Reported ENT: No Symptoms Reported Respiratory: Shortness of Breath Cardiovascular: [place] Gastrointestinal: No Symptoms Reported Genitourinary: No Symptoms Reported Musculoskeletal: See HPI (LEFT WRIST PAIN ) Skin: No Symptoms Reported Neurological: Weakness - Physical Exam Vital Signs: Temperature 98.0 F Pulse Rate [Left Radial] 67 Respiratory Rate 20 Blood Pressure [Left Arm] 119/64 O2 Sat by Pulse Oximetry 94 Oriented: Normal Eyes: Normal Ear: Normal Nose: Normal Throat: Normal Respiratory: Diminished Throughout Cardiovascular: Normal : Normal Auscultation: Bowel Sounds: Normal Palpation: Normal Tenderness: Normal Skin: Normal Musculoskeletal: Left, Wrist, Tender Psychiatric: Normal Mood Description: Calm Affect: Normal Speech Pattern: Clear - Assessment/Plan (1) Leukocytosis Qualifiers: Leukocytosis type: unspecified Status: Acute (2) Acute kidney failure Qualifiers: Acute renal failure type: unspecified Qualified Code(s): N17.9 - Acute kidney failure, unspecified Status: Acute Plan: NORMAL SALINE AT 80 ML/HR, LEVAQUIN 250MG IV DAILY, FORTAZ 1G IV DAILY, ALBUMIN 25% IV DAILY, XOPENEX NEBS QID, AND ZOFRAN 4MG IV Q6H PRN. HER HOME MEDICATIONS OF BENTYL, NEURONTIN, GLIPIZIDE, NORCO, PANTOPRAZOLE, PROMETHAZINE, AND ZOLPIDEM WERE RESUMED. WE WILL ORDER A BLOOD SMEAR FOR PATHOLOGY REVIEW. (3) Anemia Qualifiers: Anemia type: iron deficiency Iron deficiency anemia type: unspecified iron deficiency Qualified Code(s): D50.9 - Iron deficiency anemia, unspecified Status: Chronic (4) Hyponatremia Status: Acute (5) Hypokalemia Status: Acute (6) Hypoalbuminemia Status: Acute (7) Hypomagnesemia Status: Acute - Allergies Allergies/Adverse Reactions: Allergies Allergy/AdvReac Type Severity Reaction Status Date / Time No Known Drug Allergies Allergy Verified 04/29/20 20:19
[2022-04-02] MEDS: K-DUR TAB 20 MEQ PO SCH (12:48)
[2022-04-02] MEDS: NEURONTIN CAP 300 MG PO SCH (12:48)
[2022-04-02] MEDS: GLUCOTROL XL 24-HR PO SCH (12:49)
[2022-04-02] MEDS: HEMOCYTE-PLUS PO SCH (12:49)
[2022-04-02] MEDS: PROTONIX TAB 40 MG PO SCH ×2 (12:50→20:30)
[2022-04-02] MEDS: XOPENEX 1.25 MG/3 ML NEBULE NEB SCH ×3 (12:58→20:25)
[2022-04-02] MEDS: VITAMIN B-12 PO SCH (13:00)
[2022-04-02] MEDS ORDERED: AMBIEN PO SCH (21:00)
[2022-04-03 05:52] LABS: BASOPHILS # (AUTO) 0.3 X10^3/uL (0.0-0.1); BASOPHILS % (AUTO) 1.4 % (0.2-1.0); EOSINOPHILS # (AUTO) 0.4 x10^3/uL (0.0-0.2); EOSINOPHILS % (AUTO) 2.5 % (0.9-2.9); HEMATOCRIT 23.2 % (36.0-47.0); HEMOGLOBIN 7.8 g/dL (12.0-16.0); LYMPHOCYTES # (AUTO) 1.4 X10^3/uL (1.3-2.9); LYMPHOCYTES % (AUTO) 7.8 % (21.0-51.0); MEAN CORPUSCULAR HEMOGLOBIN 28.3 pg (27.0-34.0); MEAN CORPUSCULAR HGB CONC 33.8 g/dL (33.0-35.0); MEAN CORPUSCULAR VOLUME 83.8 fL (80.0-100.0); MEAN PLATELET VOLUME 6.2 fL (7.4-11.0); MONOCYTES # (AUTO) 0.8 x10^3/uL (0.3-0.8); MONOCYTES % (AUTO) 4.6 % (0.0-13.0); NEUTROPHILS # (AUTO) 14.7 x10^3/uL (2.2-4.8); NEUTROPHILS % (AUTO) 83.7 % (42.0-75.0); RED BLOOD COUNT 2.77 X10^6/uL (3.5-5.4); WHITE BLOOD COUNT 17.6 X10^3/uL (3.6-10.0)
[2022-04-03 06:06] LABS: ALBUMIN 2.4 g/dL (3.4-5.0); CARBON DIOXIDE 29.1 mmol/L (21-32); COR CA(FOR HYPOALB) 9.3 mg/dL (8.5-10.1); CREATININE 1.58 mg/dL (0.55-1.02); TOTAL PROTEIN 6.7 g/dL (6.4-8.2)
[2022-04-03] MEDS: ALBUMIN HUMAN 25%- 100 ML 100 ML IV SCH (08:45)
[2022-04-03] MEDS: HEMOCYTE-PLUS PO SCH (08:47)
[2022-04-03] MEDS: PROTONIX TAB 40 MG PO SCH ×2 (08:47→20:33)
[2022-04-03] MEDS: K-DUR TAB 20 MEQ PO SCH (08:47)
[2022-04-03] MEDS: GLUCOTROL XL 24-HR PO SCH (08:47)
[2022-04-03] MEDS: NEURONTIN CAP 300 MG PO SCH (08:48)
[2022-04-03] MEDS: VITAMIN B-12 PO SCH (08:48)
[2022-04-03] MEDS: XOPENEX 1.25 MG/3 ML NEBULE NEB SCH ×4 (09:07→20:47)
[2022-04-03] MEDS: NS 1,000 ML IV 1,000 ML IV SCH (10:11)
[2022-04-03] MEDS: FORTAZ or TAZICEF VIAL INJ 1 G in NS 100 ML IV 100 ML IV SCH (10:11)
[2022-04-03] MEDS: LEVAQUIN PREMIX IV 250 MG 250 MG/50 ML BAG IV SCH (12:57)
--- NOTE | 2022-04-03 17:07 | VAS ---
HISTORYLEFT ARM PAIN & SWELLING S/P FALLSTUDYUPPER EXT VENOUS, UNILATERALCOMPARISONNo relevant prior studies available.TECHNIQUEGrayscale and color Doppler images of the left upper extremity.FINDINGSJugular, subclavian, axillary, brachial, ulnar and radial veins demonstrate normal compressibility, color Doppler flow, waveforms and augmentation with no filling defects.Soft tissues are unremarkable.IMPRESSIONNo evidence of deep venous thrombosis.Electronically signed by: Jamel Young (Apr 03, 2022 17:06:29)
[2022-04-03 17:35] LABS: BILIRUBIN,URINE NEGATIVE (NEGATIVE); BLOOD/HEMOGLOBIN,URINE NEGATIVE (NEGATIVE); GLUCOSE, URINE NEGATIVE (NEGATIVE); KETONES,URINE NEGATIVE (NEGATIVE); LEUKOCYTE ESTERASE ,URINE NEGATIVE (NEGATIVE); NITRITES,URINE NEGATIVE (NEGATIVE); PROTEIN,URINE NEGATIVE (NEGATIVE); UROBILINOGEN,URINE NORMAL (NORMAL)
[2022-04-03 17:40] LABS: APPEARANCE,URINE CLEAR (CLEAR); COLOR,URINE YELLOW (YELLOW)
[2022-04-03] MEDS: COLACE CAP 100 MG PO SCH (20:33)
[2022-04-03] MEDS: AMBIEN PO SCH (21:00)
--- NOTE | 2022-04-03 22:55 | CT ---
HISTORYABDOMINAL PAINSTUDYABDOMEN/PELVIS W/O CONCOMPARISONNoneTECHNIQUENon-contrasted axial CT images of the abdomen and pelvis were obtained and reformatted into coronal and sagittal planes for further evaluation.Radiation dose: 349.70 mGy-cm total DLPFINDINGSLung bases are clear.Possible previous Pam fundoplication; correlate clinically.Stomach appears normal.Solid visceral organs of the upper abdomen are unremarkable.Status post cholecystectomy.No intra or extrahepatic biliary dilatation.Unremarkable appearance of the kidneys.No hydronephrosis, hydroureter or ureteral calculus.Unremarkable appearance of the urinary bladder.Normal appearance of the small and large bowel.Status post hysterectomy.No evidence of acute appendicitis.No pneumoperitoneum.No significant fluid collection.No adenopathy.No acute osseous abnormality.IMPRESSIONNo acute intra-abdominal abnormality detected.Electronically signed by: Jamel Young (Apr 03, 2022 22:52:58)
[2022-04-04] MEDS: NS 1,000 ML IV 1,000 ML IV SCH ×3 (01:30→22:13)
[2022-04-04 06:24] LABS: BASOPHILS % (AUTO) 0.3 % (0.2-1.0); EOSINOPHILS # (AUTO) 0.4 x10^3/uL (0.0-0.2); EOSINOPHILS % (AUTO) 2.2 % (0.9-2.9); HEMATOCRIT 20.9 % (36.0-47.0); LYMPHOCYTES % (AUTO) 6.1 % (21.0-51.0); MEAN CORPUSCULAR HEMOGLOBIN 28.1 pg (27.0-34.0); MEAN CORPUSCULAR HGB CONC 33.4 g/dL (33.0-35.0); MEAN CORPUSCULAR VOLUME 84.1 fL (80.0-100.0); MEAN PLATELET VOLUME 6.1 fL (7.4-11.0); MONOCYTES # (AUTO) 0.6 x10^3/uL (0.3-0.8); NEUTROPHILS # (AUTO) 13.8 x10^3/uL (2.2-4.8); NEUTROPHILS % (AUTO) 87.4 % (42.0-75.0); RED BLOOD COUNT 2.49 X10^6/uL (3.5-5.4); RED CELL DISTRIBUTION WIDTH 15.3 % (11.6-16.5); WHITE BLOOD COUNT 15.8 X10^3/uL (3.6-10.0)
[2022-04-04 06:25] LABS: ALANINE AMINOTRANSFERASE 8 Units/L (12-78); ALBUMIN 2.1 g/dL (3.4-5.0); ALKALINE PHOSPHATASE 125 Units/L (46-116); ASPARTATE AMINO TRANSFERASE 15 Units/L (15-37); BLOOD UREA NITROGEN 13 mg/dL (7-18); CALCIUM 7.9 mg/dL (8.5-10.1); CARBON DIOXIDE 27.8 mmol/L (21-32); CHLORIDE 98 mmol/L (98-107); COR CA(FOR HYPOALB) 9.4 mg/dL (8.5-10.1); CREATININE 1.62 mg/dL (0.55-1.02); SODIUM 132 mmol/L (136-145); TOTAL PROTEIN 5.9 g/dL (6.4-8.2); eGFR NON BLACK RACES 33 (>60)
[2022-04-04] MEDS: K-DUR TAB 20 MEQ PO SCH (08:30)
[2022-04-04] MEDS: ALBUMIN HUMAN 25%- 100 ML 100 ML IV SCH (08:30)
[2022-04-04] MEDS: GLUCOTROL XL 24-HR PO SCH (08:32)
[2022-04-04] MEDS: PROTONIX TAB 40 MG PO SCH ×2 (08:32→21:15)
[2022-04-04] MEDS: HEMOCYTE-PLUS PO SCH (08:33)
[2022-04-04] MEDS: VITAMIN B-12 PO SCH (08:33)
[2022-04-04] MEDS: NEURONTIN CAP 300 MG PO SCH (08:33)
[2022-04-04] MEDS: XOPENEX 1.25 MG/3 ML NEBULE NEB SCH ×4 (09:00→20:10)
[2022-04-04] MEDS: FORTAZ or TAZICEF VIAL INJ 1 G in NS 100 ML IV 100 ML IV SCH (09:58)
[2022-04-04] MEDS ORDERED: NORCO 5/325 MG TAB PO PRN (10:22)
[2022-04-04] MEDS: LEVAQUIN PREMIX IV 250 MG 250 MG/50 ML BAG IV SCH (11:09)
[2022-04-04] MEDS: LINZESS PO SCH (11:11)
[2022-04-04] MEDS: FOLIC ACID TAB 1 MG PO SCH (11:11)
[2022-04-04] MEDS ORDERED: NS 500 ML IV 500 ML IV ONE (11:12)
[2022-04-04] MEDS: NYSTATIN SUSP PO SCH ×3 (12:23→21:15)
[2022-04-04] MEDS: NORCO 10/325 TAB PO PRN ×2 (18:13→21:21)
[2022-04-04 20:25] LABS: HEMATOCRIT 30.8 % (36.0-47.0)
[2022-04-04 20:30] LABS: HEMOGLOBIN 10.2 g/dL (12.0-16.0)
[2022-04-04] MEDS: ZOFRAN INJ 4 MG VIAL IVP PRN (21:15)
[2022-04-04] MEDS: AMBIEN PO SCH (21:15)
[2022-04-04] MEDS: COLACE CAP 100 MG PO SCH (21:15)
[2022-04-05] MEDS: NS 1,000 ML IV 1,000 ML IV SCH ×3 (02:21→20:14)
[2022-04-05 05:10] LABS: BASOPHILS % (AUTO) 0 % (0.2-1.0); EOSINOPHILS # (AUTO) 0.1 x10^3/uL (0.0-0.2); EOSINOPHILS % (AUTO) 0.3 % (0.9-2.9); HEMATOCRIT 31.5 % (36.0-47.0); HEMOGLOBIN 10.7 g/dL (12.0-16.0); LYMPHOCYTES # (AUTO) 1.2 X10^3/uL (1.3-2.9); LYMPHOCYTES % (AUTO) 5.8 % (21.0-51.0); MEAN CORPUSCULAR HEMOGLOBIN 28.4 pg (27.0-34.0); MEAN CORPUSCULAR HGB CONC 33.8 g/dL (33.0-35.0); MEAN CORPUSCULAR VOLUME 83.8 fL (80.0-100.0); MEAN PLATELET VOLUME 6.4 fL (7.4-11.0); MONOCYTES # (AUTO) 1.3 x10^3/uL (0.3-0.8); MONOCYTES % (AUTO) 5.9 % (0.0-13.0); NEUTROPHILS # (AUTO) 18.7 x10^3/uL (2.2-4.8); RED BLOOD COUNT 3.75 X10^6/uL (3.5-5.4); RED CELL DISTRIBUTION WIDTH 15.6 % (11.6-16.5); WHITE BLOOD COUNT 21.3 X10^3/uL (3.6-10.0)
[2022-04-05 05:26] LABS: ALBUMIN 2.4 g/dL (3.4-5.0); CALCIUM 8.4 mg/dL (8.5-10.1); CARBON DIOXIDE 23.9 mmol/L (21-32); COR CA(FOR HYPOALB) 9.7 mg/dL (8.5-10.1); CREATININE 1.35 mg/dL (0.55-1.02); TOTAL PROTEIN 6.6 g/dL (6.4-8.2)
[2022-04-05 05:33] LABS: PLATELET MORPHOLOGY COMMENT NORMAL (NORMAL)
[2022-04-05] MEDS: ZOFRAN INJ 4 MG VIAL IVP PRN ×2 (05:39→21:39)
[2022-04-05] MEDS: NORCO 10/325 TAB PO PRN (06:07)
[2022-04-05] MEDS: LEVAQUIN PREMIX IV 250 MG 250 MG/50 ML BAG IV SCH (08:07)
[2022-04-05] MEDS: NYSTATIN SUSP PO SCH ×4 (08:10→21:32)
[2022-04-05] MEDS: HEMOCYTE-PLUS PO SCH (08:10)
[2022-04-05] MEDS: XOPENEX 1.25 MG/3 ML NEBULE NEB SCH ×4 (08:10→21:00)
[2022-04-05] MEDS: K-DUR TAB 20 MEQ PO SCH (08:10)
[2022-04-05] MEDS: VITAMIN B-12 PO SCH (08:10)
[2022-04-05] MEDS: GLUCOTROL XL 24-HR PO SCH (08:11)
[2022-04-05] MEDS: PROTONIX TAB 40 MG PO SCH ×2 (08:11→21:31)
[2022-04-05] MEDS: NEURONTIN CAP 300 MG PO SCH (08:11)
[2022-04-05] MEDS: FOLIC ACID TAB 1 MG PO SCH (08:11)
[2022-04-05] MEDS: LINZESS PO SCH (08:11)
[2022-04-05] MEDS: FORTAZ or TAZICEF VIAL INJ 1 G in NS 100 ML IV 100 ML IV SCH (08:57)
[2022-04-05] MEDS ORDERED: LINZESS PO SCH (09:00)
[2022-04-05] MEDS: ALBUMIN HUMAN 25%- 100 ML 100 ML IV SCH (10:00)
[2022-04-05] MEDS: BENTYL CAP 10 MG PO PRN (11:09)
[2022-04-05] MEDS: DIFLUCAN 200 MG IV PREMIX* 200 MG/100 ML BAG IV SCH (11:09)
[2022-04-05] MEDS: COLACE CAP 100 MG PO SCH (21:31)
[2022-04-05] MEDS: AMBIEN PO SCH (21:31)
--- NOTE | 2022-04-05 23:51 | EKG ---
Test Reason : tachy Blood Pressure : */* mmHG Vent. Rate : 135 BPM Atrial Rate : 135 BPM P-R Int : 202 ms QRS Dur : 70 ms QT Int : 196 ms P-R-T Axes : * -26 116 degrees QTc Int : 294 ms Sinus tachycardia with premature supraventricular complexes Possible Anterolateral infarct (cited on or before 01-APR-2022) Inferior injury pattern ACUTE [place] / STEMI Consider right ventricular involvement in acute inferior infarct Abnormal ECG When compared with ECG of 01-APR-2022 15:45, (Unconfirmed) Questionable change in initial forces of Lateral leads ST elevation now present in Inferior leads Non-specific change in ST segment in Anterolateral leads Confirmed by Clarence Ware ([id number]) on 04/07/2022 8:52:40 AM Referred By: Confirmed By: Clarence Ware
[2022-04-06] MEDS: NORCO 10/325 TAB PO PRN ×2 (00:11→07:53)
[2022-04-06] MEDS: NS 1,000 ML IV 1,000 ML IV SCH ×3 (00:22→23:26)
[2022-04-06 05:34] LABS: BASOPHILS # (AUTO) 0.1 X10^3/uL (0.0-0.1); BASOPHILS % (AUTO) 0.6 % (0.2-1.0); HEMATOCRIT 33.8 % (36.0-47.0); HEMOGLOBIN 11.5 g/dL (12.0-16.0); LYMPHOCYTES # (AUTO) 0.5 X10^3/uL (1.3-2.9); LYMPHOCYTES % (AUTO) 2.2 % (21.0-51.0); MEAN CORPUSCULAR HEMOGLOBIN 28.4 pg (27.0-34.0); MEAN CORPUSCULAR HGB CONC 33.8 g/dL (33.0-35.0); MEAN PLATELET VOLUME 6.1 fL (7.4-11.0); MONOCYTES # (AUTO) 0.6 x10^3/uL (0.3-0.8); MONOCYTES % (AUTO) 2.7 % (0.0-13.0); NEUTROPHILS % (AUTO) 94.5 % (42.0-75.0); RED BLOOD COUNT 4.03 X10^6/uL (3.5-5.4); RED CELL DISTRIBUTION WIDTH 15.3 % (11.6-16.5); WHITE BLOOD COUNT 24.4 X10^3/uL (3.6-10.0)
[2022-04-06 05:45] LABS: ALBUMIN 2.8 g/dL (3.4-5.0); CALCIUM 9.1 mg/dL (8.5-10.1); CARBON DIOXIDE 21.8 mmol/L (21-32); COR CA(FOR HYPOALB) 10.1 mg/dL (8.5-10.1); CREATININE 1.61 mg/dL (0.55-1.02); TOTAL PROTEIN 7.4 g/dL (6.4-8.2)
[2022-04-06 05:56] LABS: BAND NEUTROPHILS % 3 % (0-10)
[2022-04-06 05:57] LABS: PLATELET MORPHOLOGY COMMENT NORMAL (NORMAL)
[2022-04-06] MEDS: FORTAZ or TAZICEF VIAL INJ 1 G in NS 100 ML IV 100 ML IV SCH ×2 (07:53→12:13)
[2022-04-06] MEDS: XOPENEX 1.25 MG/3 ML NEBULE NEB SCH ×4 (08:05→20:30)
[2022-04-06] MEDS: LEVAQUIN PREMIX IV 250 MG 250 MG/50 ML BAG IV SCH (09:08)
[2022-04-06] MEDS: HEMOCYTE-PLUS PO SCH (09:09)
[2022-04-06] MEDS: NYSTATIN SUSP PO SCH ×4 (09:09→21:02)
[2022-04-06] MEDS: LINZESS PO SCH (09:09)
[2022-04-06] MEDS: VITAMIN B-12 PO SCH (09:10)
[2022-04-06] MEDS: NEURONTIN CAP 300 MG PO SCH (09:10)
[2022-04-06] MEDS: PROTONIX TAB 40 MG PO SCH ×2 (09:10→21:01)
[2022-04-06] MEDS: K-DUR TAB 20 MEQ PO SCH (09:10)
[2022-04-06] MEDS: GLUCOTROL XL 24-HR PO SCH (09:10)
[2022-04-06] MEDS: FOLIC ACID TAB 1 MG PO SCH (09:10)
[2022-04-06] MEDS: DIFLUCAN 200 MG IV PREMIX* 200 MG/100 ML BAG IV SCH (09:53)
--- NOTE | 2022-04-06 10:15 | PCM.PROG ---
Progress Note - Progress Note for Day of Date of Exam: 04/06/22 - Subjective Subjective: IS CURRENTLY BEING TREATED FOR LEUKOCYTOSIS, ACUTE KIDNEY FAILURE, AND ELECTROLYTE IMBALANCE. TODAY, SHE IS ALERT AND ORINETED, LYING IN BED ON MORNING ROUNDS. SHE COMPLAINS OF ABDOMINAL PAIN/DISTENSION AND NAUSEA THIS MORNING. SHE CONTINUES TO HAVE GENERALIZED WEAKNESS. SHE WAS APPARENTLY NOTED TO HAVE INCREASED HEART RATE AND DECREASED OXYGEN SATURATIONS EARLY THIS MORNING. SATURATIONS DECREASED TO 91% ON ROOM AIR. SHE WAS PLACED ON NASAL CANNUAL AT 2 LPM. SHE DENIES SHORTNESS OF BREATH ON MORNING ROUNDS. ON EXAMINATION, HEART IS REGULAR IN RATE AND RHYTHM. BILATERAL LUNGS ARE NOTED WITH DIMINISHED LUNG SOUNDS THROUGHOUT. ABDOMEN IS MARKEDLY DISTENDED. THERE IS A SIGNIFICANT INCREASE IN DISTENSION SINCE WE SAW HER ON WEDNESDAY. HYPOACTIVE BOWEL SOUNDS ARE NOTED. THERE IS STILL SOME SWELLING TO THE LEFT HAND FOLLOWING AN INJURY LAST WEEK. NO LOWER EXTREMITY EDEMA NOTED. HER VITALS THIS MORNING ARE: 97.6-91-20-94%-141/85. LABS WERE OBTAINED. WBC INCREASED TO 24.4, RBC 4.03, HGB 11.5, HCT 33.8, PLT COUNT 635, SODIUM 129, POTASSIUM 3.6, CHLORIDE 95, BUN 22, CREATININE 1.61, GLUCOSE 161, CALCIUM 9.1, AST 14, ALT 8, ALK PHOS 142, TOTAL PROTEIN 7.4, ALBUMIN 2.8. BLOOD CULTURES ARE PENDING. AN ABDOMEN/PELVIS CT WITHOUT CONTRAST WAS OBTAINED ON WEDNESDAY AND WAS NEGATIVE FOR ACUTE ABNORMALITY. SHE IS CURRENTLY RECEIVING NORAML SALINE AT 80 ML/HR, LEVAQUIN 250MG IV DAILY, F ORTAZ 1G IV DAILY, DIFLUCAN 200MG IV DAILY, ALBUMIN 25% IV DAILY, XOPENEX NEBS QID, LINZESS 290MCG DAILY, AND ZOFRAN 4MG IV Q6H PRN. HER HOME MEDICATIONS OF BENTYL, NEURONTIN, GLIPIZIDE, NORCO, PANTOPRAZOLE, PROMETHAZINE, AND ZOLPIDEM WERE RESUMED. WE WILL OBTAIN A KUB AND A CHEST XRAY THIS MORNING. WE WILL CONSULT DUE TO PERSISTENT ABDOMINAL PAIN AND MARKED DISTENSION. OTHERWISE, WE WILL FOLLOW-UP WITH AM LABS AND CONTINUE TO MONITOR. TIME SPENT ON CLINICAL ASSESSMENT, REVIWING LABS AND IMAGING, DECISION MAKING, AND DOCUMENTATION GREATER THAN 45 MINUTES. - Past Medical Family Social History Past Med/Fam/Surg Hx: No changes since H&P Allergies: Allergies No Known Drug Allergies Allergy (Verified 04/29/20 20:19) - Review of Systems ROS: No change since H&P - Vital Signs and I&O's Vital Signs: Temperature 97.6 F Pulse Rate [Left Radial] 113 Pulse Rate 91 Respiratory Rate 24 Blood Pressure [Left Arm] 141/85 O2 Sat by Pulse Oximetry 95 Intake and Output: Intake & Output 04/03/22 04/04/22 04/05/22 04/06/22 11:59 11:59 11:59 11:59 Intake Total 3112 / 3112 2202 / 2202 4053 / 4053 2653 / 2653 Output Total 980 / 980 1050 / 1050 750 / 750 Balance 3112 / 3112 1222 / 1222 3003 / 3003 1903 / 1903 - Physical Exam Oriented: Normal Eyes: Normal Ear: Normal Nose: Normal Throat: Normal Respiratory: Diminished Cardiovascular: Normal : Normal Auscultation: Bowel Sounds: Normal Palpation: Normal Tenderness: Diffuse, Other (MARKED DISTENSION ) Skin: Normal Musculoskeletal: Left, Wrist, Tender Psychiatric: Normal Mood Description: Calm Affect: Normal Speech Pattern: Clear, Appropriate - Laboratory and Diagnostics Result Diagrams: 04/06/22 05:18 04/06/22 05:18 Labs: 04/01/22 15:56 Blood Blood Culture - Preliminary 04/01/22 17:30 Urine,Clean Catch Urine Culture - Final 04/01/22 16:06 Blood Blood Culture - Preliminary Laboratory WBC 24.4 X10^3/uL (3.6-10.0) H 04/06/22 05:18 RBC 4.03 X10^6/uL (3.5-5.4) 04/06/22 05:18 Hgb 11.5 g/dL (12.0-16.0) L 04/06/22 05:18 Hct 33.8 % (36.0-47.0) L 04/06/22 05:18 MCV 84.0 fL (80.0-100.0) 04/06/22 05:18 MCH 28.4 pg (27.0-34.0) 04/06/22 05:18 MCHC 33.8 g/dL (33.0-35.0) 04/06/22 05:18 RDW 15.3 % (11.6-16.5) 04/06/22 05:18 Plt Count 635 X10^3/uL (150.0-450.0) H 04/06/22 05:18 Plt Count Comment Increased (ADEQUATE) A 04/06/22 05:18 MPV 6.1 fL (7.4-11.0) L 04/06/22 05:18 Neut % (Auto) 94.5 % (42.0-75.0) H 04/06/22 05:18 Lymph % (Auto) 2.2 % (21.0-51.0) L 04/06/22 05:18 [place] % (Auto) 2.7 % (0.0-13.0) 04/06/22 05:18 Eos % (Auto) 0.0 % (0.9-2.9) L 04/06/22 05:18 Baso % (Auto) 0.6 % (0.2-1.0) 04/06/22 05:18 Neut # (Auto) 23.0 x10^3/uL (2.2-4.8) H 04/06/22 05:18 Lymph # (Auto) 0.5 X10^3/uL (1.3-2.9) L 04/06/22 05:18 [place] # (Auto) 0.6 x10^3/uL (0.3-0.8) 04/06/22 05:18 Eos # (Auto) 0.0 x10^3/uL (0.0-0.2) 04/06/22 05:18 Baso # (Auto) 0.1 X10^3/uL (0.0-0.1) 04/06/22 05:18 Absolute Nucleated RBC 0.0 /100WBC 04/06/22 05:18 Total Counted 100 04/06/22 05:18 Neutrophils % (Manual) 94 % (39-76) H 04/06/22 05:18 Band Neutrophils % 3 % (0-10) 04/06/22 05:18 Lymphocytes % (Manual) 2 % (13-43) L 04/06/22 05:18 Monocytes % (Manual) 1 % (4-9) L 04/06/22 05:18 Eosinophils % (Manual) 1 % (0-6) 04/05/22 04:20 Plt Morphology Comment Normal (NORMAL) 04/06/22 05:18 RBC Morphology Normal (NORMAL) 04/06/22 05:18 Sodium 129 mmol/L (136-145) L 04/06/22 05:18 Corrected Sodium 130 mmol/L (136-145) L 04/06/22 05:18 Potassium 3.6 mmol/L (3.5-5.1) 04/06/22 05:18 Chloride 95 mmol/L (98-107) L 04/06/22 05:18 Carbon Dioxide 21.8 mmol/L (21-32) 04/06/22 05:18 BUN 22 mg/dL (7-18) H 04/06/22 05:18 Creatinine 1.61 mg/dL (0.55-1.02) H 04/06/22 05:18 Est GFR (MDRD) Af Amer 41 (>60) L 04/06/22 05:18 Est GFR (MDRD) Non-Af 34 (>60) L 04/06/22 05:18 Glucose 161 mg/dL (65-99) H 04/06/22 05:18 POC Glucose (mg/dL) 143 mg/dL (65-99) H 04/06/22 05:10 Calcium 9.1 mg/dL (8.5-10.1) 04/06/22 05:18 Corrected Calcium 10.1 mg/dL (8.5-10.1) 04/06/22 05:18 Magnesium 2.3 mg/dL (2.0-2.9) 04/04/22 05:54 Iron 31 ug/dL (50-175) L 04/02/22 05:34 Transferrin 92 mg/dL (202-364) L 04/02/22 05:34 Ferritin 525 ng/mL (8-252) H 04/02/22 05:34 Total Bilirubin 0.60 mg/dL (0.2-1.0) 04/06/22 05:18 AST 14 Units/L (15-37) L 04/06/22 05:18 ALT 8 Units/L (12-78) L 04/06/22 05:18 Alkaline Phosphatase 142 Units/L (46-116) H 04/06/22 05:18 Creatine Kinase 89 Units/L (26-192) 04/06/22 00:05 Troponin I High Sens 16.2 ng/L (4.0-60.0) 04/06/22 00:05 Total Protein 7.4 g/dL (6.4-8.2) 04/06/22 05:18 Albumin 2.8 g/dL (3.4-5.0) L 04/06/22 05:18 Globulin 4.6 g/dL (2.5-4.5) H 04/06/22 05:18 Albumin/Globulin Ratio 0.6 Ratio (1.1-2.1) L 04/06/22 05:18 Vitamin B12 > 2000 pg/mL (193-986) H 04/02/22 05:34 Folate 3.7 ng/mL (>8.6) L 04/02/22 05:34 Specimen Type Catherized urine 04/03/22 17:20 Urine Color Yellow (YELLOW) 04/03/22 17:20 Urine Appearance Clear (CLEAR) 04/03/22 17:20 Urine pH 6.0 (5.0 - 8.0) 04/03/22 17:20 Ur Specific [place] 1.015 (1.000-1.030) 04/03/22 17:20 Urine Protein Negative (NEGATIVE) 04/03/22 17:20 Urine Glucose (UA) Negative (NEGATIVE) 04/03/22 17:20 Urine Ketones Negative (NEGATIVE) 04/03/22 17:20 Urine Blood Negative (NEGATIVE) 04/03/22 17:20 Urine Nitrite Negative (NEGATIVE) 04/03/22 17:20 Urine Bilirubin Negative (NEGATIVE) 04/03/22 17:20 Urine Urobilinogen Normal (NORMAL) 04/03/22 17:20 Ur Leukocyte Esterase Negative (NEGATIVE) 04/03/22 17:20 Blood Type A NEGATIVE 04/04/22 07:14 Antibody Screen Negative 04/04/22 07:14 Crossmatch See Detail 04/04/22 07:14 - Plan (1) Leukocytosis Status: Acute Qualifiers: Leukocytosis type: unspecified Plan: NORAML SALINE AT 80 ML/HR, LEVAQUIN 250MG IV DAILY, FORTAZ 1G IV DAILY, D IFLUCAN 200MG IV DAILY, ALBUMIN 25% IV DAILY, XOPENEX NEBS QID, LINZESS 290MCG DAILY, AND ZOFRAN 4MG IV Q6H PRN. HER HOME MEDICATIONS OF BENTYL, NEURONTIN, GLIPIZIDE, NORCO, PANTOPRAZOLE, PROMETHAZINE, AND ZOLPIDEM WERE RESUMED. (2) Acute kidney failure Status: Acute Qualifiers: Acute renal failure type: unspecified Qualified Code(s): N17.9 - Acute kidney failure, unspecified (3) Abdominal pain Status: Acute Qualifiers: Abdominal location: generalized Qualified Code(s): R10.84 - Generalized ab dominal pain (4) Anemia Status: Chronic Qualifiers: Anemia type: iron deficiency Iron deficiency anemia type: unspecified iron deficiency Qualified Code(s): D50.9 - Iron deficiency anemia, unspecified (5) Hyponatremia Status: Acute (6) Hypokalemia Status: Acute (7) Hypoalbuminemia Status: Acute (8) Hypomagnesemia Status: Acute
[2022-04-06] MEDS: ALBUMIN HUMAN 25%- 100 ML 100 ML IV SCH (12:03)
--- NOTE | 2022-04-06 12:46 | RAD ---
HISTORYShortness of breathSTUDYSingle-view [id number]/07/2022FINDINGSThe trachea is midline. The cardiac silhouette is enlarged with a tortuous thoracic aorta. A poor inspiratory effort is noted to be present. The lungs are clear without focal infiltrate or effusion. The bony thorax is unremarkable.IMPRESSIONNo acute cardiopulmonary disease.Electronically signed by: WESLEY GILBERT (Apr 06, 2022 12:44:58)
--- NOTE | 2022-04-06 12:48 | RAD ---
HISTORYABDOMINAL DISTENTIONSTUDYKUBCOMPARISONCT abdomen dated 04/03/2022FINDINGSEvaluation of the abdomen demonstrates a nonspecific but nonobstructive bowel gas pattern as distal colonic gas is noted be present. Multiple fluid-filled loops of small bowel within the central abdomen are observed with minimal amount of air. Distension of the colon throughout transverse and descending colon remains essentially unchanged compared prior CT of 04/03/2022. Clinical evaluation for developing colonic ileus is requested. No pathological soft tissue mass or calcification can be observed. The bony structures are grossly intact.IMPRESSIONNonspecific but nonobstructive bowel gas pattern is observed with stable distension of and air-filled colon noted to be present. Developing colonic ileus should be considered.Electronically signed by: WESLEY GILBERT (Apr 06, 2022 12:46:59)
[2022-04-06] MEDS: PHENERGAN INJ 25 MG IM PRN (18:04)
[2022-04-06] MEDS: COLACE CAP 100 MG PO SCH (21:01)
[2022-04-06] MEDS: AMBIEN PO SCH (21:02)
[2022-04-06] MEDS: BENTYL CAP 10 MG PO PRN (21:43)
[2022-04-07] MEDS: NS 1,000 ML IV 1,000 ML IV SCH ×2 (02:27→16:30)
[2022-04-07] MEDS: NORCO 10/325 TAB PO PRN (03:53)
[2022-04-07 05:51] LABS: BASOPHILS % (AUTO) 0.2 % (0.2-1.0); EOSINOPHILS # (AUTO) 0.1 x10^3/uL (0.0-0.2); EOSINOPHILS % (AUTO) 0.3 % (0.9-2.9); HEMATOCRIT 31.2 % (36.0-47.0); HEMOGLOBIN 10.3 g/dL (12.0-16.0); LYMPHOCYTES # (AUTO) 0.9 X10^3/uL (1.3-2.9); LYMPHOCYTES % (AUTO) 4.2 % (21.0-51.0); MEAN CORPUSCULAR HEMOGLOBIN 28.2 pg (27.0-34.0); MEAN CORPUSCULAR VOLUME 85.5 fL (80.0-100.0); MEAN PLATELET VOLUME 6.4 fL (7.4-11.0); MONOCYTES # (AUTO) 1.4 x10^3/uL (0.3-0.8); MONOCYTES % (AUTO) 6.4 % (0.0-13.0); NEUTROPHILS % (AUTO) 88.9 % (42.0-75.0); RED BLOOD COUNT 3.65 X10^6/uL (3.5-5.4); RED CELL DISTRIBUTION WIDTH 15.7 % (11.6-16.5); WHITE BLOOD COUNT 22.5 X10^3/uL (3.6-10.0)
[2022-04-07 06:14] LABS: ALBUMIN 2.8 g/dL (3.4-5.0); CALCIUM 8.7 mg/dL (8.5-10.1); CARBON DIOXIDE 19.2 mmol/L (21-32); COR CA(FOR HYPOALB) 9.7 mg/dL (8.5-10.1); CREATININE 1.45 mg/dL (0.55-1.02); TOTAL PROTEIN 6.9 g/dL (6.4-8.2)
[2022-04-07 06:15] LABS: BAND NEUTROPHILS % 7 % (0-10); METAMYELOCYTES % 2; PLATELET MORPHOLOGY COMMENT NORMAL (NORMAL)
[2022-04-07] MEDS: XOPENEX 1.25 MG/3 ML NEBULE NEB SCH ×4 (08:25→21:13)
[2022-04-07] MEDS: LEVAQUIN PREMIX IV 250 MG 250 MG/50 ML BAG IV SCH (08:47)
[2022-04-07] MEDS: FOLIC ACID TAB 1 MG PO SCH (08:49)
[2022-04-07] MEDS: PROTONIX TAB 40 MG PO SCH (08:49)
[2022-04-07] MEDS: VITAMIN B-12 PO SCH (08:49)
[2022-04-07] MEDS: NEURONTIN CAP 300 MG PO SCH (08:49)
[2022-04-07] MEDS: LINZESS PO SCH (08:49)
[2022-04-07] MEDS: GLUCOTROL XL 24-HR PO SCH (08:49)
[2022-04-07] MEDS: HEMOCYTE-PLUS PO SCH (08:49)
[2022-04-07] MEDS: K-DUR TAB 20 MEQ PO SCH (08:49)
[2022-04-07] MEDS: NYSTATIN SUSP PO SCH ×4 (08:50→22:08)
[2022-04-07] MEDS: FORTAZ or TAZICEF VIAL INJ 1 G in NS 100 ML IV 100 ML IV SCH (09:44)
--- NOTE | 2022-04-07 10:27 | PCM.PROG ---
Progress Note - Progress Note for Day of Date of Exam: 04/07/22 - Subjective Subjective: IS CURRENTLY BEING TREATED FOR LEUKOCYTOSIS, ACUTE KIDNEY FAILURE, ILEUS, AND ELECTROLYTE IMBALANCE. TODAY, SHE IS ALERT AND ORINETED, LYING IN BED ON MORNING ROUNDS. SHE CONTINUES TO COMPLAIN OF ABDOMINAL PAIN/DISTENSION AND NAUSEA THIS MORNING. SHE CONTINUES TO HAVE GENERALIZED W EAKNESS. ON EXAMINATION, HEART IS REGULAR IN RATE AND RHYTHM. BILATERAL LUNGS ARE NOTED WITH DIMINISHED LUNG SOUNDS THROUGHOUT. ABDOMEN IS MARKEDLY DISTENDED. THERE IS A SIGNIFICANT INCREASE IN DISTENSION SINCE WE SAW HER ON WEDNESDAY. HYPOACTIVE BOWEL SOUNDS ARE NOTED. THERE IS STILL SOME SWELLING TO THE LEFT HAND FOLLOWING AN INJURY LAST WEEK. NO LOWER EXTREMITY EDEMA NOTED. HER VITALS THIS MORNING ARE: 97.4-114-22-97%-135/78. LABS WERE OBTAINED. WBC 22.5, RBC 3.65, HGB 10.3, HCT 31.2, PLT COUNT 274, SODIUM 131, POTASSIUM 3.9, CHLORIDE 98, CARBON DIOXIDE 19.2, BUN 31, CREATININE 1.45, GLUCOSE 32, CALCIUM 8.7, TOTAL BILI 0.30, AST 16, ALT 7, ALK PHOS 119, TOTAL PROTEIN 6.9, ALBUMIN 2.8. BLOOD CULTURES ARE PENDING. A KUB WAS OBTAINED AND REVEALED: Nonspecific but nonobstructive bowel gas pattern is observed with stable distension of and air-filled colon noted to be present. Developing colonic ileus should be considered. SHE IS CURRENTLY RECEIVING NORMAL SALINE AT 80 ML/HR, LEVAQUIN 250MG IV DAILY, FORTAZ 1G IV DAILY, DIFLUCAN 200MG IV DAILY, ALBUMIN 25% IV DAILY, XOPENEX NEBS QID, LINZESS 290MCG DAILY, AND ZOFRAN 4MG IV Q6H PRN. HER HOME MEDICATIONS OF BENTYL, NEURONTIN, GLIPIZIDE, NORCO, PANTOPRAZOLE, PROMETHAZINE, AND ZOLPIDEM WERE RESUMED. WE ENCOURAGED PLACEMENT OF NG TUBE YESTERDAY, HOWEVER, PATIENT AND SPOUSE REFUSED. THEY DID REQUEST TRANSFER TO HER VISUAL ASSOCIATE, , IN [place]. WE SPOKE WITH YESTERDAY. HE ACCEPTED PATIENT FOR TRANSFER. WE WILL SEND PATIENT WHEN A BED BECOMES AVAILABLE AT [facility]. WE EDUCATED PATIENT ON THE NG TUBE AND ENCOURAGED PLACEMENT FOR DECOMPRESSION. OTHERWISE, WE WILL FOLLOW-UP WITH AM LABS AND CONTINUE TO MONITOR. TIME SPENT ON CLINICAL ASSESSMENT, REVIWING LABS AND IMAGING, DECISION MAKING, AND DOCUMENTATION GRE ATER THAN 45 MINUTES. - Past Medical Family Social History Past Med/Fam/Surg Hx: No changes since H&P Allergies: Allergies No Known Drug Allergies Allergy (Verified 04/29/20 20:19) - Review of Systems ROS: No change since H&P - Vital Signs and I&O's Vital Signs: Temperature 97.4 F Pulse Rate [Left Radial] 114 Pulse Rate 122 Respiratory Rate 22 Blood Pressure [Left Arm] 135/78 O2 Sat by Pulse Oximetry 97 Intake and Output: Intake & Output 04/04/22 04/05/22 04/06/22 04/07/22 11:59 11:59 11:59 11:59 Intake Total 2202 / 2202 4053 / 4053 2653 / 2653 2146 / 2146 Output Total 980 / 980 1050 / 1050 750 / 750 270 / 270 Balance 1222 / 1222 3003 / 3003 1903 / 1903 1876 / 1876 - Physical Exam Oriented: Normal Eyes: Normal Ear: Normal Nose: Normal Throat: Normal Respiratory: Diminished Cardiovascular: Normal : Normal Auscultation: Bowel Sounds: Normal Palpation: Normal Tenderness: Diffuse, Other (MARKED DISTENSION ) Skin: Normal Musculoskeletal: Left, Wrist, Tender Psychiatric: Normal Mood Description: Calm Affect: Normal Speech Pattern: Clear, Appropriate - Laboratory and Diagnostics Result Diagrams: 04/07/22 05:13 04/07/22 05:13 Labs: 04/01/22 16:06 Blood Blood Culture - Final 04/01/22 15:56 Blood Blood Culture - Final 04/01/22 17:30 Urine,Clean Catch Urine Culture - Final Laboratory WBC 22.5 X10^3/uL (3.6-10.0) H 04/07/22 05:13 RBC 3.65 X10^6/uL (3.5-5.4) 04/07/22 05:13 Hgb 10.3 g/dL (12.0-16.0) L 04/07/22 05:13 Hct 31.2 % (36.0-47.0) L 04/07/22 05:13 MCV 85.5 fL (80.0-100.0) 04/07/22 05:13 MCH 28.2 pg (27.0-34.0) 04/07/22 05:13 MCHC 33.0 g/dL (33.0-35.0) 04/07/22 05:13 RDW 15.7 % (11.6-16.5) 04/07/22 05:13 Plt Count 574 X10^3/uL (150.0-450.0) H 04/07/22 05:13 Plt Count Comment Increased (ADEQUATE) A 04/07/22 05:13 MPV 6.4 fL (7.4-11.0) L 04/07/22 05:13 Neut % (Auto) 88.9 % (42.0-75.0) H 04/07/22 05:13 Lymph % (Auto) 4.2 % (21.0-51.0) L 04/07/22 05:13 [place] % (Auto) 6.4 % (0.0-13.0) 04/07/22 05:13 Eos % (Auto) 0.3 % (0.9-2.9) L 04/07/22 05:13 Baso % (Auto) 0.2 % (0.2-1.0) 04/07/22 05:13 Neut # (Auto) 20.0 x10^3/uL (2.2-4.8) H 04/07/22 05:13 Lymph # (Auto) 0.9 X10^3/uL (1.3-2.9) L 04/07/22 05:13 [place] # (Auto) 1.4 x10^3/uL (0.3-0.8) H 04/07/22 05:13 Eos # (Auto) 0.1 x10^3/uL (0.0-0.2) 04/07/22 05:13 Baso # (Auto) 0.0 X10^3/uL (0.0-0.1) 04/07/22 05:13 Absolute Nucleated RBC 0.0 /100WBC 04/07/22 05:13 Total Counted 100 04/07/22 05:13 Neutrophils % (Manual) 84 % (39-76) H 04/07/22 05:13 Band Neutrophils % 7 % (0-10) 04/07/22 05:13 Lymphocytes % (Manual) 3 % (13-43) L 04/07/22 05:13 Monocytes % (Manual) 4 % (4-9) 04/07/22 05:13 Eosinophils % (Manual) 1 % (0-6) 04/05/22 04:20 Metamyelocytes % 2 04/07/22 05:13 Plt Morphology Comment Normal (NORMAL) 04/07/22 05:13 RBC Morphology Normal (NORMAL) 04/07/22 05:13 Smear Path Review See note 04/02/22 05:34 Sodium 131 mmol/L (136-145) L 04/07/22 05:13 Corrected Sodium 132 mmol/L (136-145) L 04/07/22 05:13 Potassium 3.9 mmol/L (3.5-5.1) 04/07/22 05:13 Chloride 98 mmol/L (98-107) 04/07/22 05:13 Carbon Dioxide 19.2 mmol/L (21-32) L 04/07/22 05:13 BUN 31 mg/dL (7-18) H 04/07/22 05:13 Creatinine 1.45 mg/dL (0.55-1.02) H 04/07/22 05:13 Est GFR (MDRD) Af Amer 46 (>60) L 04/07/22 05:13 Est GFR (MDRD) Non-Af 38 (>60) L 04/07/22 05:13 Glucose 132 mg/dL (65-99) H 04/07/22 05:13 POC Glucose (mg/dL) 134 mg/dL (65-99) H 04/07/22 05:24 Calcium 8.7 mg/dL (8.5-10.1) 04/07/22 05:13 Corrected Calcium 9.7 mg/dL (8.5-10.1) 04/07/22 05:13 Magnesium 2.3 mg/dL (2.0-2.9) 04/04/22 05:54 Iron 31 ug/dL (50-175) L 04/02/22 05:34 Transferrin 92 mg/dL (202-364) L 04/02/22 05:34 Ferritin 525 ng/mL (8-252) H 04/02/22 05:34 Total Bilirubin 0.30 mg/dL (0.2-1.0) 04/07/22 05:13 AST 16 Units/L (15-37) 04/07/22 05:13 ALT 7 Units/L (12-78) L 04/07/22 05:13 Alkaline Phosphatase 119 Units/L (46-116) H 04/07/22 05:13 Creatine Kinase 89 Units/L (26-192) 04/06/22 00:05 Troponin I High Sens 16.2 ng/L (4.0-60.0) 04/06/22 00:05 Total Protein 6.9 g/dL (6.4-8.2) 04/07/22 05:13 Albumin 2.8 g/dL (3.4-5.0) L 04/07/22 05:13 Globulin 4.1 g/dL (2.5-4.5) 04/07/22 05:13 Albumin/Globulin Ratio 0.7 Ratio (1.1-2.1) L 04/07/22 05:13 Vitamin B12 > 2000 pg/mL (193-986) H 04/02/22 05:34 Folate 3.7 ng/mL (>8.6) L 04/02/22 05:34 Specimen Type Catherized urine 04/03/22 17:20 Urine Color Yellow (YELLOW) 04/03/22 17:20 Urine Appearance Clear (CLEAR) 04/03/22 17:20 Urine pH 6.0 (5.0 - 8.0) 04/03/22 17:20 Ur Specific [place] 1.015 (1.000-1.030) 04/03/22 17:20 Urine Protein Negative (NEGATIVE) 04/03/22 17:20 Urine Glucose (UA) Negative (NEGATIVE) 04/03/22 17:20 Urine Ketones Negative (NEGATIVE) 04/03/22 17:20 Urine Blood Negative (NEGATIVE) 04/03/22 17:20 Urine Nitrite Negative (NEGATIVE) 04/03/22 17:20 Urine Bilirubin Negative (NEGATIVE) 04/03/22 17:20 Urine Urobilinogen Normal (NORMAL) 04/03/22 17:20 Ur Leukocyte Esterase Negative (NEGATIVE) 04/03/22 17:20 Blood Type A NEGATIVE 04/04/22 07:14 Antibody Screen Negative 04/04/22 07:14 Crossmatch See Detail 04/04/22 07:14 - Plan (1) Leukocytosis Status: Acute Qualifiers: Leukocytosis type: unspecified Plan: NORMAL SALINE AT 80 ML/HR, LEVAQUIN 250MG IV DAILY, FORTAZ 1G IV DAILY, DIFLUCAN 200MG IV DAILY, ALBUMIN 25% IV DAILY, XOPENEX NEBS QID, LINZESS 290MCG DAILY, AND ZOFRAN 4MG IV Q6H PRN. HER HOME MEDICATIONS OF BENTYL, NEURONTIN, GLIPIZIDE, NORCO, PANTOPRAZOLE, PROMETHAZINE, AND ZOLPIDEM WERE RESUMED. (2) Acute kidney failure Status: Acute Qualifiers: Acute renal failure type: unspecified Qualified Code(s): N17.9 - Acute kidney failure, unspecified (3) Abdominal pain Status: Acute Qualifiers: Abdominal location: generalized Qualified Code(s): R10.84 - Generalized abdominal pain (4) Anemia Status: Chronic Qualifiers: Anemia type: iron deficiency Iron deficiency anemia type: unspecified iron deficiency Qualified Code(s): D50.9 - Iron deficiency anemia, unspecified (5) Hyponatremia Status: Acute (6) Hypokalemia Status: Acute (7) Hypoalbuminemia Status: Acute (8) Hypomagnesemia Status: Acute
[2022-04-07] MEDS: ALBUMIN HUMAN 25%- 100 ML 100 ML IV SCH (11:07)
[2022-04-07] MEDS ORDERED: VALIUM INJ IVP ONE (11:23)
[2022-04-07] MEDS: DIFLUCAN 200 MG IV PREMIX* 200 MG/100 ML BAG IV SCH (11:33)
[2022-04-07] MEDS ORDERED: ATIVAN INJ 2 MG VIAL IVP ONE (16:29)
[2022-04-07] MEDS ORDERED: ATIVAN INJ 2 MG VIAL ONE (16:32)
--- NOTE | 2022-04-07 18:13 | RAD ---
HISTORYNG tube placementSTUDYKUBCOMPARISONNone. r.br.br acquired.FINDINGSSurgical clips seen in the right upper quadrant. There is a nasogastric tube with its tip just at the level of the gastroesophageal junction. There is significant gaseous distention of the colonic bowel loops and small bowel loops within the mid abdomen and upper abdomen. The stomach is also markedly distended. No pathologic calcifications are noted.The osseous structures are intact.IMPRESSIONNasogastric tube in situ with its tip just at the level of the gastroesophageal junction. This in needs to be advanced approximately 5-10 cm.Marked gaseous distention of the stomach, colonic bowel loops and small bowel loops. This is concerning for a high-grade bowel obstruction.Electronically signed by: Janene Ellison (Apr 07, 2022 18:11:55)
--- NOTE | 2022-04-07 19:35 | RAD ---
HISTORYng tube placementSTUDYCHEST, 1 VIEWCOMPARISONNone.TECHNIQUEA single frontal view of the chest was obtained.FINDINGSThere are multiple EKG leads and wires seen overlying the patient. There is a nasogastric tube with its tip just at the level of the gastroesophageal junction. This needs to be advanced 7-10 cm. The heart is normal in size. There is increased density to the right middle lobe and right lower lobe. There is no effusion. There is no pneumothorax. The osseous structures are intact. The stomach is markedly gaseous lead distended as well as the transverse colon.IMPRESSIONRight lower lobe and midlung zone alveolar infiltrate. The nasogastric tube is seen at the level of the gastroesophageal junction and should be advanced approximately 7-10 cm.Electronically signed by: Janene Ellison (Apr 07, 2022 19:33:08)
[2022-04-07] MEDS: PHENERGAN INJ 25 MG IM PRN (21:28)
[2022-04-07] MEDS: AMBIEN PO SCH (22:07)
[2022-04-07] MEDS: COLACE CAP 100 MG PO SCH (22:08)
--- NOTE | 2022-04-07 22:10 | RAD ---
HISTORYng tube placementSTUDYKUBCOMPARISONDecemb2021 x-ray KUBTECHNIQUEA supine view was acquired.FINDINGSThere is a nasogastric tube seen with its tip just at the gastroesophageal junction. The stomach is markedly distended as well as multiple small and large bowel loops. The nasogastric tube needs to be advanced approximate 7-10 cm. If the nasogastric tube cannot be advanced there may be an obstruction at the gastroesophageal junction. No pathologic calcifications are noted.The osseous structures are intact.IMPRESSIONNasogastric tube at the gastroesophageal junction. This needs to be advanced 7 to 10 cm. If there is an obstruction to advancement, a lesion within the gastroesophageal junction may be present.Marked gaseous distention of the stomach and visualized small and large bowel loops.Electronically signed by: Janene Ellison (Apr 07, 2022 22:08:32)
[2022-04-07] MEDS: PROTONIX INJ 40 MG VIAL IVP SCH (22:17)
[2022-04-07] MEDS ORDERED: D50W ABBOJECT SYR IV ONE (23:29)
[2022-04-07] MEDS ORDERED: D50W ABBOJECT SYR ONE (23:38)
[2022-04-08] MEDS: PHENERGAN INJ 25 MG IM PRN (03:30)
[2022-04-08] MEDS ORDERED: D50W ABBOJECT SYR IV ONE ×2 (04:28→15:00)
[2022-04-08] MEDS: NS 1,000 ML IV 1,000 ML IV SCH (05:12)
[2022-04-08 05:48] LABS: BASOPHILS # (AUTO) 0.1 X10^3/uL (0.0-0.1); BASOPHILS % (AUTO) 0.3 % (0.2-1.0); EOSINOPHILS # (AUTO) 0.3 x10^3/uL (0.0-0.2); HEMATOCRIT 30.9 % (36.0-47.0); HEMOGLOBIN 10.1 g/dL (12.0-16.0); LYMPHOCYTES # (AUTO) 0.8 X10^3/uL (1.3-2.9); LYMPHOCYTES % (AUTO) 5.1 % (21.0-51.0); MEAN CORPUSCULAR HEMOGLOBIN 28.2 pg (27.0-34.0); MEAN CORPUSCULAR HGB CONC 32.7 g/dL (33.0-35.0); MEAN CORPUSCULAR VOLUME 86.2 fL (80.0-100.0); MEAN PLATELET VOLUME 5.9 fL (7.4-11.0); MONOCYTES % (AUTO) 6.2 % (0.0-13.0); NEUTROPHILS # (AUTO) 14.1 x10^3/uL (2.2-4.8); NEUTROPHILS % (AUTO) 86.4 % (42.0-75.0); RED BLOOD COUNT 3.59 X10^6/uL (3.5-5.4); RED CELL DISTRIBUTION WIDTH 16.4 % (11.6-16.5); WHITE BLOOD COUNT 16.3 X10^3/uL (3.6-10.0)
[2022-04-08 06:29] LABS: ALANINE AMINOTRANSFERASE 11 Units/L (12-78); ALBUMIN 2.8 g/dL (3.4-5.0); ALKALINE PHOSPHATASE 95 Units/L (46-116); ASPARTATE AMINO TRANSFERASE 20 Units/L (15-37); BLOOD UREA NITROGEN 33 mg/dL (7-18); CALCIUM 8.3 mg/dL (8.5-10.1); CARBON DIOXIDE 23.1 mmol/L (21-32); CHLORIDE 103 mmol/L (98-107); COR CA(FOR HYPOALB) 9.3 mg/dL (8.5-10.1); CREATININE 1.41 mg/dL (0.55-1.02); SODIUM 136 mmol/L (136-145); TOTAL PROTEIN 6.5 g/dL (6.4-8.2); eGFR NON BLACK RACES 39 (>60)
--- NOTE | 2022-04-08 07:55 | RAD ---
HISTORYILEUS Relevant Clinical [id number]/12/2022 .br.br.br.br loops with overall no interval change. There are some new more prominent small bowel loops.Small amount of air in the rectum. Status post cholecystectomy.IMPRESSIONPersistent diffuse dilated mainly large bowel loops with some new more prominent small bowel loop since prior study.Electronically signed by: Tri Bautista (Apr 08, 2022 07:53:02)
[2022-04-08] MEDS ORDERED: NovoLIN R (or HumuLIN R) SUBCUT PRN (08:34)
[2022-04-08] MEDS: NYSTATIN SUSP PO SCH ×5 (08:42→21:24)
[2022-04-08] MEDS: FOLIC ACID TAB 1 MG PO SCH (08:42)
[2022-04-08] MEDS: NEURONTIN CAP 300 MG PO SCH (08:42)
[2022-04-08] MEDS: LEVAQUIN PREMIX IV 250 MG 250 MG/50 ML BAG IV SCH (08:42)
[2022-04-08] MEDS: VITAMIN B-12 PO SCH (08:42)
[2022-04-08] MEDS: LINZESS PO SCH (08:42)
[2022-04-08] MEDS: HEMOCYTE-PLUS PO SCH (08:42)
[2022-04-08] MEDS: K-DUR TAB 20 MEQ PO SCH (08:42)
--- NOTE | 2022-04-08 08:54 | RAD ---
HISTORYShortness of breathSTUDYChest AP [id number]/13/2022FINDINGSThe heart remains markedly enlarged. The aorta is calcified. The lungs are markedly hypoinflated. No definite infiltrates or pleural effusions are identified. Gastric distension is identified. Bony thorax is unremarkable.IMPRESSIONLungs markedly hypoinflated but free of acute infiltratesCardiomegaly without congestive heart failureGastric distensionElectronically signed by: GLORIA GUERRERO (Apr 08, 2022 08:52:14)
[2022-04-08] MEDS: XOPENEX 1.25 MG/3 ML NEBULE NEB SCH ×4 (09:38→20:41)
[2022-04-08] MEDS: DIFLUCAN 100 MG IV (MIX by PHARMACY)* 100 MG/50 ML BAG IV SCH (09:50)
[2022-04-08] MEDS: PROTONIX INJ 40 MG VIAL IVP SCH ×2 (09:52→21:19)
[2022-04-08] MEDS: ALBUMIN HUMAN 25%- 100 ML 100 ML IV SCH (10:43)
--- NOTE | 2022-04-08 10:56 | PCM.PROG ---
Progress Note - Progress Note for Day of Date of Exam: 04/08/22 - Subjective Subjective: IS CURRENTLY BEING TREATED FOR LEUKOCYTOSIS, ACUTE KIDNEY FAILURE, ILEUS, AND ELECTROLYTE IMBALANCE. TODAY, SHE IS ALERT AND ORIENTED, LYING IN BED ON MORNING ROUNDS. SHE CONTINUES TO COMPLAIN OF ABDOMINAL PAIN/DISTENSION AND NAUSEA THIS MORNING. SHE CONTINUES TO HAVE GENERALIZED W EAKNESS. AN NG TUBE WAS INSERTED YESTERDAY AFTERNOON AFTER MULTIPLE ATTEMPTS. KUB WAS OBTAINED FOR PLACEMENT AND RECOMMENDED THAT NG TUBE BE ADVANCED. PATIENT REFUSED ADVANCEMENT AND DEMANDED THAT NG TUBE BE REMOVED. NG WAS REMOVED BY NURSING STAFF DUE TO PATIENT REFUSING FOR IT TO REMAIN. ON EXAMINATION, SHE IS TACHYCARDIC WITH HR 114. BILATERAL LUNGS ARE NOTED WITH DIMINISHED LUNG SOUNDS THROUGHOUT. ABDOMEN IS MARKEDLY DISTENDED. THERE IS A SIGNIFICANT INCREASE IN DISTENSION SINCE WE SAW HER ON WEDNESDAY. HYPOACTIVE BOWEL SOUNDS ARE NOTED. THERE IS STILL SOME SWELLING TO THE LEFT HAND FOLLOWING AN INJURY LAST WEEK. NO LOWER EXTREMITY EDEMA NOTED. HER VITALS THIS MORNING ARE: 98.3-114-22-99%-124/71. LABS WERE OBTAINED. WBC 16.3, RBC 3.59, HGB 10.1, HCT 30.9, PLT COUNT 471, SODIUM 136, POTASSIUM 4.1, CARBON DIOXIDE 23.1, BUN 33, CREATININE 1.41, GLUCOSE 86, CALCIUM 8.3, AST 20, ALT 11, ALK PHOS 95, TOTAL PROTEIN 6.5, ALBUMIN 2.8. BLOOD CULTURES ARE PENDING. A CHEST XRAY WAS OBTAINED THIS MORNING AND REVEALED: Lungs markedly hypoinflated but free of acute infiltrates. Cardiomegaly without congestive heart failure. Gastric distension. SHE IS CURRENTLY RECEIVING NORMAL SALINE AT 80 ML/HR, LEVAQUIN 250MG IV DAILY, FORTAZ 1G IV DAILY, DIFLUCAN 200MG IV DAILY, ALBUMIN 25% IV DAILY, XOPENEX NEBS QID, LINZESS 290MCG DAILY, AND ZOFRAN 4MG IV Q6H PRN. HER HOME MEDICATIONS OF BENTYL, NEURONTIN, GLIPIZIDE, NORCO, PANTOPRAZOLE, PROMETHAZINE, AND ZOLPIDEM WERE RESUMED. PATIENT HAS BEEN ACCEPTED FOR TRANSFER TO [facility] IN [place], [place] HOWEVER, A BED IS STILL NOT AVAILABLE. WE WILL SEND PATIENT WHEN A BED BECOMES AVAILABLE. IN THE MEANTIME, WE DISCUSSED THE NEED FOR NG TUBE AND DECOMPRESSION. DUE TO THE DIFFICULTY OF PLACING THE NG TUBE DUE TO POSSIBLE OBSTRUCTION, WE WILL CONSULT WITH FOR POSSIBLE EGD AND NG TUBE PLACEMENT. OTHERWISE, WE WILL FOLLOW-UP WITH AM LABS AND CONTINUE TO MONITOR. TIME SPENT ON CLINICAL ASSESSMENT, REVIWING LABS AND IMAGING, DECISION MAKING, AND DOCUMENTATION GREATER THAN 45 MINUTES. - Past Medical Family Social History Past Med/Fam/Surg Hx: No changes since H&P Allergies: Allergies No Known Drug Allergies Allergy (Verified 04/29/20 20:19) - Review of Systems ROS: No change since H&P - Vital Signs and I&O's Vital Signs: Temperature 98.3 F Pulse Rate [Left Radial] 114 Pulse Rate 67 Respiratory Rate 22 Blood Pressure [Left Arm] 124/71 O2 Sat by Pulse Oximetry 99 Intake and Output: Intake & Output 04/05/22 04/06/22 04/07/22 04/08/22 11:59 11:59 11:59 11:59 Intake Total 4053 / 4053 2653 / 2653 2146 / 2146 1330 / 1330 Output Total 1050 / 1050 750 / 750 270 / 270 325 / 325 Balance 3003 / 3003 1903 / 1903 1876 / 1876 1005 / 1005 - Physical Exam Oriented: Normal Eyes: Normal Ear: Normal Nose: Normal Throat: Normal Respiratory: Diminished Cardiovascular: Normal : Normal Auscultation: Bowel Sounds: Normal Palpation: Normal Tenderness: Diffuse, Other (MARKED DISTENSION ) Skin: Normal Musculoskeletal: Left, Wrist, Tender Psychiatric: Normal Mood Description: Calm Affect: Normal Speech Pattern: Clear, Appropriate - Laboratory and Diagnostics Result Diagrams: 04/08/22 05:32 04/08/22 05:32 Labs: 04/01/22 16:06 Blood Blood Culture - Final 04/01/22 15:56 Blood Blood Culture - Final 04/01/22 17:30 Urine,Clean Catch Urine Culture - Final Laboratory WBC 16.3 X10^3/uL (3.6-10.0) H 04/08/22 05:32 RBC 3.59 X10^6/uL (3.5-5.4) 04/08/22 05:32 Hgb 10.1 g/dL (12.0-16.0) L 04/08/22 05:32 Hct 30.9 % (36.0-47.0) L 04/08/22 05:32 MCV 86.2 fL (80.0-100.0) 04/08/22 05:32 MCH 28.2 pg (27.0-34.0) 04/08/22 05:32 MCHC 32.7 g/dL (33.0-35.0) L 04/08/22 05:32 RDW 16.4 % (11.6-16.5) 04/08/22 05:32 Plt Count 471 X10^3/uL (150.0-450.0) H 04/08/22 05:32 Plt Count Comment Increased (ADEQUATE) A 04/07/22 05:13 MPV 5.9 fL (7.4-11.0) L 04/08/22 05:32 Neut % (Auto) 86.4 % (42.0-75.0) H 04/08/22 05:32 Lymph % (Auto) 5.1 % (21.0-51.0) L 04/08/22 05:32 [place] % (Auto) 6.2 % (0.0-13.0) 04/08/22 05:32 Eos % (Auto) 2.0 % (0.9-2.9) 04/08/22 05:32 Baso % (Auto) 0.3 % (0.2-1.0) 04/08/22 05:32 Neut # (Auto) 14.1 x10^3/uL (2.2-4.8) H 04/08/22 05:32 Lymph # (Auto) 0.8 X10^3/uL (1.3-2.9) L 04/08/22 05:32 [place] # (Auto) 1.0 x10^3/uL (0.3-0.8) H 04/08/22 05:32 Eos # (Auto) 0.3 x10^3/uL (0.0-0.2) H 04/08/22 05:32 Baso # (Auto) 0.1 X10^3/uL (0.0-0.1) 04/08/22 05:32 Absolute Nucleated RBC 0.1 /100WBC 04/08/22 05:32 Total Counted 100 04/07/22 05:13 Neutrophils % (Manual) 84 % (39-76) H 04/07/22 05:13 Band Neutrophils % 7 % (0-10) 04/07/22 05:13 Lymphocytes % (Manual) 3 % (13-43) L 04/07/22 05:13 Monocytes % (Manual) 4 % (4-9) 04/07/22 05:13 Eosinophils % (Manual) 1 % (0-6) 04/05/22 04:20 Metamyelocytes % 2 04/07/22 05:13 Plt Morphology Comment Normal (NORMAL) 04/07/22 05:13 RBC Morphology Normal (NORMAL) 04/07/22 05:13 Smear Path Review See note 04/02/22 05:34 Sodium 136 mmol/L (136-145) 04/08/22 05:32 Corrected Sodium TNP 04/08/22 05:32 Potassium 4.1 mmol/L (3.5-5.1) 04/08/22 05:32 Chloride 103 mmol/L (98-107) 04/08/22 05:32 Carbon Dioxide 23.1 mmol/L (21-32) 04/08/22 05:32 BUN 33 mg/dL (7-18) H 04/08/22 05:32 Creatinine 1.41 mg/dL (0.55-1.02) H 04/08/22 05:32 Est GFR (MDRD) Af Amer 47 (>60) L 04/08/22 05:32 Est GFR (MDRD) Non-Af 39 (>60) L 04/08/22 05:32 Glucose 86 mg/dL (65-99) 04/08/22 05:32 POC Glucose (mg/dL) 88 mg/dL (65-99) 04/08/22 05:14 Calcium 8.3 mg/dL (8.5-10.1) L 04/08/22 05:32 Corrected Calcium 9.3 mg/dL (8.5-10.1) 04/08/22 05:32 Magnesium 2.3 mg/dL (2.0-2.9) 04/04/22 05:54 Iron 31 ug/dL (50-175) L 04/02/22 05:34 Transferrin 92 mg/dL (202-364) L 04/02/22 05:34 Ferritin 525 ng/mL (8-252) H 04/02/22 05:34 Total Bilirubin 0.20 mg/dL (0.2-1.0) 04/08/22 05:32 AST 20 Units/L (15-37) 04/08/22 05:32 ALT 11 Units/L (12-78) L 04/08/22 05:32 Alkaline Phosphatase 95 Units/L (46-116) 04/08/22 05:32 Creatine Kinase 89 Units/L (26-192) 04/06/22 00:05 Troponin I High Sens 16.2 ng/L (4.0-60.0) 04/06/22 00:05 Total Protein 6.5 g/dL (6.4-8.2) 04/08/22 05:32 Albumin 2.8 g/dL (3.4-5.0) L 04/08/22 05:32 Globulin 3.7 g/dL (2.5-4.5) 04/08/22 05:32 Albumin/Globulin Ratio 0.8 Ratio (1.1-2.1) L 04/08/22 05:32 Vitamin B12 > 2000 pg/mL (193-986) H 04/02/22 05:34 Folate 3.7 ng/mL (>8.6) L 04/02/22 05:34 Specimen Type Catherized urine 04/03/22 17:20 Urine Color Yellow (YELLOW) 04/03/22 17:20 Urine Appearance Clear (CLEAR) 04/03/22 17:20 Urine pH 6.0 (5.0 - 8.0) 04/03/22 17:20 Ur Specific Jessie 1.015 (1.000-1.030) 04/03/22 17:20 Urine Protein Negative (NEGATIVE) 04/03/22 17:20 Urine Glucose (UA) Negative (NEGATIVE) 04/03/22 17:20 Urine Ketones Negative (NEGATIVE) 04/03/22 17:20 Urine Blood Negative (NEGATIVE) 04/03/22 17:20 Urine Nitrite Negative (NEGATIVE) 04/03/22 17:20 Urine Bilirubin Negative (NEGATIVE) 04/03/22 17:20 Urine Urobilinogen Normal (NORMAL) 04/03/22 17:20 Ur Leukocyte Esterase Negative (NEGATIVE) 04/03/22 17:20 Blood Type A NEGATIVE 04/04/22 07:14 Antibody Screen Negative 04/04/22 07:14 Crossmatch See Detail 04/04/22 07:14 - Plan (1) Leukocytosis Status: Acute Qualifiers: Leukocytosis type: unspecified Plan: D5W AT 80 ML/HR, LEVAQUIN 250MG IV DAILY, FORTAZ 1G IV DAILY, DIFLUCAN 200MG IV DAILY, ALBUMIN 25% IV DAILY, XOPENEX NEBS QID, LINZESS 290MCG DAILY, AND ZOFRAN 4MG IV Q6H PRN. HER HOME MEDICATIONS OF BENTYL, NEURONTIN, GLIPIZIDE, NORCO, PANTOPRAZOLE, PROMETHAZINE, AND ZOLPIDEM WERE RESUMED. (2) Ileus Status: Acute (3) Acute kidney failure Status: Acute Qualifiers: Acute renal failure type: unspecified Qualified Code(s): N17.9 - Acute kidney failure, unspecified (4) Abdominal pain Status: Acute Qualifiers: Abdominal location: generalized Qualified Code(s): R10.84 - Generalized abdominal pain (5) Anemia Status: Chronic Qualifiers: Anemia type: iron deficiency Iron deficiency anemia type: unspecified iron deficiency Qualified Code(s): D50.9 - Iron deficiency anemia, unspecified (6) Hyponatremia Status: Acute (7) Hypokalemia Status: Acute (8) Hypoalbuminemia Status: Acute (9) Hypomagnesemia Status: Acute
[2022-04-08] MEDS ORDERED: DIPRIVAN VIAL 20 ML ONE (11:05)
[2022-04-08] MEDS ORDERED: NS 500 ML IV 500 ML IV ONE (11:13)
[2022-04-08] MEDS: D5W 1,000 ML IV 1,000 ML IV SCH (12:08)
[2022-04-08] MEDS: FORTAZ or TAZICEF VIAL INJ 1 G in NS 100 ML IV 100 ML IV SCH (12:08)
[2022-04-08] MEDS ORDERED: D50W ABBOJECT SYR ONE (15:05)
[2022-04-08] MEDS ORDERED: SNACK - Diabetic Appropriate PO SCH (20:00)
[2022-04-08] MEDS: AMBIEN PO SCH (21:19)
[2022-04-08] MEDS: COLACE CAP 100 MG PO SCH (21:20)
[2022-04-08] MEDS: NORCO 10/325 TAB PO PRN (21:21)
[2022-04-09] MEDS: D5W 1,000 ML IV 1,000 ML IV SCH (00:35)
[2022-04-09] MEDS: NORCO 10/325 TAB PO PRN (05:20)
[2022-04-09] MEDS ORDERED: D50W ABBOJECT SYR IV ONE ×2 (05:22→11:20)
[2022-04-09 05:48] LABS: BASOPHILS % (AUTO) 0.1 % (0.2-1.0); EOSINOPHILS # (AUTO) 0.2 x10^3/uL (0.0-0.2); EOSINOPHILS % (AUTO) 0.7 % (0.9-2.9); HEMATOCRIT 25.7 % (36.0-47.0); HEMOGLOBIN 8.4 g/dL (12.0-16.0); LYMPHOCYTES % (AUTO) 4.4 % (21.0-51.0); MEAN CORPUSCULAR HEMOGLOBIN 27.8 pg (27.0-34.0); MEAN CORPUSCULAR HGB CONC 32.6 g/dL (33.0-35.0); MEAN CORPUSCULAR VOLUME 85.3 fL (80.0-100.0); MEAN PLATELET VOLUME 6.2 fL (7.4-11.0); MONOCYTES # (AUTO) 1.2 x10^3/uL (0.3-0.8); MONOCYTES % (AUTO) 5.2 % (0.0-13.0); NEUTROPHILS # (AUTO) 20.8 x10^3/uL (2.2-4.8); NEUTROPHILS % (AUTO) 89.6 % (42.0-75.0); RED BLOOD COUNT 3.02 X10^6/uL (3.5-5.4); RED CELL DISTRIBUTION WIDTH 15.9 % (11.6-16.5); WHITE BLOOD COUNT 23.2 X10^3/uL (3.6-10.0)
[2022-04-09 05:52] LABS: ALANINE AMINOTRANSFERASE 12 Units/L (12-78); ALBUMIN 2.3 g/dL (3.4-5.0); ALKALINE PHOSPHATASE 104 Units/L (46-116); ASPARTATE AMINO TRANSFERASE 25 Units/L (15-37); BLOOD UREA NITROGEN 35 mg/dL (7-18); CALCIUM 7.9 mg/dL (8.5-10.1); CARBON DIOXIDE 23.6 mmol/L (21-32); CHLORIDE 102 mmol/L (98-107); COR CA(FOR HYPOALB) 9.3 mg/dL (8.5-10.1); CREATININE 1.38 mg/dL (0.55-1.02); SODIUM 133 mmol/L (136-145); TOTAL PROTEIN 5.5 g/dL (6.4-8.2); eGFR NON BLACK RACES 40 (>60)
[2022-04-09 06:09] LABS: BAND NEUTROPHILS % 2 % (0-10)
[2022-04-09 06:10] LABS: PLATELET MORPHOLOGY COMMENT NORMAL (NORMAL)
--- NOTE | 2022-04-09 08:18 | EKG ---
Test Reason : sob Blood Pressure : */* mmHG Vent. Rate : 121 BPM Atrial Rate : 121 BPM P-R Int : 146 ms QRS Dur : 70 ms QT Int : 288 ms P-R-T Axes : 47 -23 48 degrees QTc Int : 408 ms Sinus tachycardia Low voltage QRS Possible Anterolateral infarct (cited on or before 01-APR-2022) Abnormal ECG When compared with ECG of 05-APR-2022 23:45, premature supraventricular complexes are no longer present Serial changes of evolving Anterior infarct present Serial changes of evolving Anterolateral infarct present Confirmed by Clarence Ware ([id number]) on 04/09/2022 1:16:06 PM Referred By: Confirmed By: Clarence Ware
--- NOTE | 2022-04-09 08:24 | RAD ---
HISTORYHypotension, leukocytosis, shortness of breathSTUDYChest AP [id number]/14/2022FINDINGSTher e is a nasogastric tube coursing below the left hemidiaphragm. Its tip is not visible. The heart is enlarged. No congestive heart failure is noted. The lungs are mildly hypoinflated however better inflated than on the prior examination. No definite infiltrates are identified. Bony thorax is unremarkable. Previously noted gastric distension no longer identified.IMPRESSIONCardiomegaly without congestive heart failure, unchangedSlightly better expansion of both lungs without definite infiltrates present.Electronically signed by: GLORIA GUERRERO (Apr 09, 2022 08:22:57)
[2022-04-09] MEDS: XOPENEX 1.25 MG/3 ML NEBULE NEB SCH ×2 (08:40→13:00)
[2022-04-09] MEDS ORDERED: LOVENOX INJ 40 MG SYR SC SCH (09:00)
[2022-04-09] MEDS: LEVAQUIN PREMIX IV 250 MG 250 MG/50 ML BAG IV SCH (09:14)
[2022-04-09] MEDS: PROTONIX INJ 40 MG VIAL IVP SCH (09:14)
--- NOTE | 2022-04-09 09:14 | RAD ---
HISTORYFollow-up [id number]/13/2022 br.br.br post nasogastric tube placement. Gas is seen through portions of the right and transverse colon. No distended small bowel is identified on this examination. No abnormal masses or abnormal calcifications are identified.IMPRESSIONResolution of the previously present gastric distention status post nasogastric tube placementNonspecific nonobstructive bowel gas patternElectronically signed by: GLORIA GUERRERO (Apr 09, 2022 09:12:40)
[2022-04-09] MEDS: NYSTATIN SUSP PO SCH ×2 (09:22→13:43)
[2022-04-09] MEDS: NEURONTIN CAP 300 MG PO SCH (09:22)
[2022-04-09] MEDS: VITAMIN B-12 PO SCH (09:23)
[2022-04-09] MEDS: LINZESS PO SCH (09:23)
[2022-04-09] MEDS: FOLIC ACID TAB 1 MG PO SCH (09:23)
[2022-04-09] MEDS: HEMOCYTE-PLUS PO SCH (09:24)
[2022-04-09] MEDS: K-DUR TAB 20 MEQ PO SCH (09:24)
[2022-04-09 09:36] LABS: INR 1.71 (0.8-1.3)
[2022-04-09 09:37] LABS: LACTIC ACID 0.5 mmol/L (0.4-2.0)
[2022-04-09 09:49] LABS: PHOSPHORUS 2.3 mg/dL (2.6-4.7)
[2022-04-09] MEDS: ALBUMIN HUMAN 25%- 100 ML 100 ML IV SCH (10:05)
[2022-04-09 10:27] LABS: BILIRUBIN,URINE NEGATIVE (NEGATIVE); BLOOD/HEMOGLOBIN,URINE 3+ (NEGATIVE); GLUCOSE, URINE NEGATIVE (NEGATIVE); KETONES,URINE NEGATIVE (NEGATIVE); LEUKOCYTE ESTERASE ,URINE NEGATIVE (NEGATIVE); NITRITES,URINE NEGATIVE (NEGATIVE); PROTEIN,URINE 2+ (NEGATIVE); UROBILINOGEN,URINE NORMAL (NORMAL)
[2022-04-09 10:41] LABS: APPEARANCE,URINE CLEAR (CLEAR); COLOR,URINE YELLOW (YELLOW); RBC,URINE 20-30 /HPF (0-3)
[2022-04-09 10:42] LABS: BACTERIA,URINE 1+ /HPF (NEGATIVE); GRANULAR CASTS,URINE MODERATE /LPF (NEGATIVE); SQUAMOUS EPITHELIAL CELL,UR NEGATIVE /HPF (NEGATIVE)
[2022-04-09] MEDS ORDERED: COLACE CAP 100 MG PO PRN (11:00)
[2022-04-09] MEDS ORDERED: D5 1/2 NS + KCL 20 MEQ/L 1,000 ML IV SCH (11:00)
[2022-04-09] MEDS ORDERED: AMBIEN PO PRN (11:00)
--- NOTE | 2022-04-09 11:33 | DR.UPDATE ---
H&P Update Prescription drug monitoring program results: PDMP reviewed and no concerns identified H&P Reviewed: Yes Any changes to H&P?: No Patient was examined?: Yes Procedures (ALL) - Central Line Placement PCM.CLCO: written consent Time out performed: Yes Patient placed pm monitor/pulse ox: Yes MD prep: mask, gown, gloves, other Centrial line prep: chlorhexidine scrub, sterile drapes applied Local anesthsia used: lidocane 1% Ultrasound used for placement: Yes (right IJ easily id'd via u/s and cannulation visualized) Central line lumen ininserted: triple Post procedure: sutured in place, good blood return, all ports aspirated, flushed,capped, sterile dressing applied Post procedure xray: tip oc catheter in good position, no pneumothorax seen Patient tolerated procedure: Yes Complications: none
[2022-04-09] MEDS ORDERED: NS 1,000 ML IV 1,000 ML IV ONE (11:47)
--- NOTE | 2022-04-09 11:51 | RAD ---
HISTORYcentral line placement Relevant Clinical InformationSTUDYCHEST, 1 VIEWCOMPARISONChest radiograph dated April 09, 2022.FINDINGSThe trachea is midline. The cardiomediastinal silhouette is enlarged. There is a nasogastric tube which extends beyond the GE junction and into the stomach. There is a right IJ CVL whose CVL tip overlies the lower right atrium. No pneumothorax is seen. There is central vascular congestion observed with patchy ground-glass disease in the left midlung zone and in both lower lobes bilaterally which can be seen with edema or infection/pneumonia. Please correlate medically.No other cardiopulmonary changes from prior are seen. The bony thorax is grossly intact on this examination.IMPRESSIONAs above.Electronically signed by: JOSEPH SOARES III (Apr 09, 2022 11:48:40)
[2022-04-09] MEDS: FORTAZ or TAZICEF VIAL INJ 1 G in NS 100 ML IV 100 ML IV SCH (11:57)
[2022-04-09] MEDS: DIFLUCAN 100 MG IV (MIX by PHARMACY)* 100 MG/50 ML BAG IV SCH (11:57)
[2022-04-09] MEDS ORDERED: D50W ABBOJECT SYR IVP NR ×2 (12:00→14:00)
[2022-04-09] MEDS ORDERED: NS 1,000 ML IV 1,000 ML IV SCH (12:00)
[2022-04-09 12:58] LABS: ABG BASE EXCESS -4.1 mmol/L (-2.0-2.0); ABG HCO3 23.7 mmol/L (22-26)
[2022-04-09 12:59] LABS: ABG ALLEN TEST POS
[2022-04-09 13:50] VITALS: BP 94/53
== END 2022-04-09 13:38 | disposition short-term general hospital (02) | DRG 315 ==
LOC: MED/SURG → OBSVTOIN 14:13 → ICU 04-09 09:00
PROVIDERS: ADMIT Internal Medicine; ATTEND Internal Medicine